=== PATIENT | male | born 1965 | race Hispanic/Latino ===

== ENCOUNTER → 2017-01-26 | Outpatient (CLI) | payer OTHER ==
[~2017-01-26] MED LIST: ASP325TEC PO; ASP81CT PO; ATR20T PO; CLOP75TA PO; CLPD75T PO; FAMO40TA6 PO; HYDR1TAB PO; LISI10TA2 PO; MECL-124 PO; MTP25TSR PO; MULTIVITAMIN; OMEG1CAP58 PO; ONDA4TAB8 PO; PANT40TA2 PO; PNT40TEC PO; VIT B12
--- OUTSIDE RECORDS SUMMARY | 2017-01-26 08:11 | XMS REPORT | Continuity of Care Document ---
Author Author [facility] Organization [facility] Address Unknown Phone Unavailable Care Team Providers Care Concrete Rubber Name Role Phone DIANA SALVADOR DO PCP Insurance Providers Payer Name Policy Number Subscriber Name Relationship [facility] [id number] Bettye Simpson 20 Self / Same As Patient Advance Directives Directive Response Recorded Date/Time Advance Directives No 03/30/15 10:31am Health Care Power of Coin Machine Collector No 03/30/15 10:31am Organ Donor No 03/30/15 10:31am Resuscitation Status Full Code 03/30/15 10:31am Problems Medical Problems Problem Onset Date Status Vertigo Unknown Active Medications Medication Dose Route Sig Days/Qty Instructions Order Date Discontinued Date Status [Vit.b-12] 07/27/08 07/13/12 Discontinued [Centrum Vit.otc] 07/27/08 07/13/12 Discontinued Metoprolol Succinate (Metoprolol ER 25mg) 25 Mg PO BEDTIME 02/23/12 Active Clopidogrel Bisulfate 1 Each PO DAILY 02/23/12 04/07/14 Discontinued Atorvastatin Calcium 20 Mg PO BEDTIME 02/23/12 Active Aspirin 81 Mg PO DAILY 02/23/12 04/25/14 Discontinued Acetaminophen/Hydrocodone Bitart 1 - 2 Each PO Q4-6HR prn 07/15/12 04/07/14 Discontinued Clopidogrel Bisulfate 75 Mg PO DAILY 90 Qty 04/08/14 Active Pantoprazole Sodium 40 Mg PO DAILY 30 Qty 04/25/14 03/30/15 Discontinued Aspirin 325 Mg PO DAILY 30 Qty take this dose for 30 days then convert over to 81 mg dose 04/25/14 03/30/15 Discontinued Aspirin 81 Mg PO DAILY 03/30/15 Active Lisinopril 10 Mg PO DAILY 03/30/15 Active Meclizine HCl 1 Tab PO FOUR TIMES DAILY 30 Qty 03/30/15 Active Social History Social History Problem Response Recorded Date/Time Alcohol Use Occasionally Uses 03/30/2015 10:31am Recreational Drug Use No 03/30/2015 10:31am Recent Foreign Travel No 04/23/2014 8:40pm Recent Infectious Disease Exposure No 04/23/2014 8:40pm Smoking Status Never a Smoker 03/30/2015 10:31am Query Response Start Date Stop Date Smoking Status Never a Smoker Hospital Discharge Instructions No hospital discharge instructions. Plan of Care No plan of care. Functional Status Query Response Date Recorded Patient Orientation Person Place Time Situation March 30, 2015 10:50am Comprehension Ability Understands Concepts March 30, 2015 10:50am Allergies, Adverse Reactions, Alerts Allergen Type Severity Reaction Status Last Updated No Known Drug Allergies Active 07/27/08 Immunizations Name Given Type Date of Pneumonia Vaccine 02/20/12 Historical Date of Influenza Vaccine 02/13/12 Historical Vital Signs Acute Vital Signs Vital Response Date/Time Temperature (Fahrenheit) 98.6 degrees F (97.6 - 99.5) Temperature (Calculated Celsius) 37.27613 degrees C (36.4 - 37.5) Pulse Rate (adult) 75 bpm (60 - 90) Respiratory Rate 16 bpm (12 - 24) O2 Sat by Pulse Oximetry 96 % (88 - 100) Blood Pressure 137/92 mm Hg Pain Pain Intensity 0 Height (Feet) 5 feet Height (Inches) 8 inches Height (Calculated Centimeters) 172.071756 cm Weight (Pounds) 175 pounds Weight (Calculated Kilograms) 79.567662 kilograms Calculated BMI 26.61 Results Laboratory Results Test Name Result Units Flags Reference Collection Date/Time Result Date/ Time Comments White Blood Count 6.5 10^3/uL 4.3-11.0 03/14/2015 2:05pm 03/14/2015 2: 15pm Red Blood Count 5.22 10^6/uL 4.35-5.85 03/14/2015 2:05pm 03/14/2015 2: 15pm Hemoglobin 15.7 G/DL 13.3-17.7 03/14/2015 2:05pm 03/14/2015 2:15pm Hematocrit 44 % 40-54 03/14/2015 2:05pm 03/14/2015 2:15pm Mean Corpuscular Volume 85 FL 80-99 03/14/2015 2:05pm 03/14/2015 2: 15pm Mean Corpuscular Hemoglobin 30 PG 25-34 03/14/2015 2:05pm 03/14/2015 2: 15pm Mean Corpuscular Hemoglobin Concent 35 G/DL 32-36 03/14/2015 2:05pm 2:15pm Red Cell Distribution Width 13.2 % 10.0-14.5 03/14/2015 2:05pm 2014 2:15pm Platelet Count 265 10^3/uL 130-400 03/14/2015 2:05pm 03/14/2015 2:15pm Mean Platelet Volume 9.9 FL 7.4-10.4 03/14/2015 2:05pm 03/14/2015 2: 15pm Neutrophils (%) (Auto) 47 % 42-75 03/14/2015 2:pm 03/14/2015 2:15pm Lymphocytes (%) (Auto) 36 % 12-44 03/14/2015 2:05pm 03/14/2015 2:15pm Monocytes (%) (Auto) 14 % H 0-12 03/14/2015 2:05pm 03/14/2015 2:15pm Eosinophils (%) (Auto) 3 % 0-10 03/14/2015 2:pm 03/14/2015 2:15pm Basophils (%) (Auto) 1 % 0-10 03/14/2015 2:05pm 03/14/2015 2:15pm Neutrophils # (Auto) 3.0 X 10^3 1.8-7.8 03/14/2015 2:05pm 03/14/2015 2: 15pm Lymphocytes # (Auto) 2.3 X 10^3 1.0-4.0 03/14/2015 2:05pm 03/14/2015 2: 15pm Monocytes # (Auto) 0.9 X 10^3 0.0-1.0 03/14/2015 2:05pm 03/14/2015 2: 15pm Eosinophils # (Auto) 0.2 10^3/uL 0.0-0.3 03/14/2015 2:05pm 03/14/2015 2 :15pm Basophils # (Auto) 0.1 10^3/uL 0.0-0.1 03/14/2015 2:05pm 03/14/2015 2: 15pm Sodium Level 140 MMOL/L 135-145 03/14/2015 2:03/14/2015 2:30pm Potassium Level 4.2 MMOL/L 3.6-5.0 03/14/2015 2:pm 03/14/2015 2:30pm Chloride Level 104 MMOL/L 98-107 03/14/2015 2:pm 03/14/2015 2:30pm Carbon Dioxide Level 26 MMOL/L 21-32 03/14/2015 2:03/14/2015 2: 30pm Blood Urea Nitrogen 17 MG/DL 7-18 03/14/2015 2:03/14/2015 2:30pm Creatinine 0.83 MG/DL 0.60-1.30 03/14/2015 2:03/14/2015 2:30pm BUN/Creatinine Ratio 20 03/14/2015 2:pm 03/14/2015 2:30pm Estimat Glomerular Filtration Rate > 60 03/14/2015 2:2014 2:30pm GFR INTERPRETIVE DATA UNITS FOR ESTIMATED GFR (eGFR): mL/min/1.73 M2 REFERENCE RANGE FOR ESTIMATED GFR (eGFR) eGFR NORMAL eGFR >60 MODERATELY DECREASED eGFR 30-59 SEVERLY DECREASED eGFR 15-29 KIDNEY FAILURE <15 (OR DIALYSIS) Glucose Level 94 MG/DL 70-105 03/14/2015 2:03/14/2015 2:30pm Calcium Level 9.9 MG/DL 8.5-10.1 03/14/2015 2:03/14/2015 2:30pm Thyroid Stimulating Hormone (TSH) 0.94 UIU/ML 0.35-4.94 03/14/2015 2: 03/14/2015 2:51pm Free Thyroxine 0.94 NG/DL 0.70-1.48 03/14/2015 2:05pm 03/14/2015 2: 51pm Hemoglobin A1c 5.8 % 4.5-6.2 03/14/2015 2:05pm 03/14/2015 2:48pm White Blood Count 6.9 10^3/uL 4.3-11.0 03/30/2015 10:35am 03/30/2015 11 :18am Red Blood Count 5.37 10^6/uL 4.35-5.85 03/30/2015 10:35am 03/30/2015 11 :18am Hemoglobin 16.0 G/DL 13.3-17.7 03/30/2015 10:35am 03/30/2015 11:18am Hematocrit 46 % 40-54 03/30/2015 10:35am 03/30/2015 11:18am Mean Corpuscular Volume 85 FL 80-99 03/30/2015 10:35am 03/30/2015 11: 18am Mean Corpuscular Hemoglobin 30 PG 25-34 03/30/2015 10:35am 03/30/2015 11:18am Mean Corpuscular Hemoglobin Concent 35 G/DL 32-36 03/30/2015 10:35am 11:18am Red Cell Distribution Width 13.2 % 10.0-14.5 03/30/2015 10:35am 2014 11:18am Platelet Count 254 10^3/uL 130-400 03/30/2015 10:35am 03/30/2015 11: 18am Mean Platelet Volume 10.0 FL 7.4-10.4 03/30/2015 10:35am 03/30/2015 11: 18am Neutrophils (%) (Auto) 60 % 42-75 03/30/2015 10:35am 03/30/2015 11: 18am Lymphocytes (%) (Auto) 27 % 12-44 03/30/2015 10:35am 03/30/2015 11: 18am Monocytes (%) (Auto) 10 % 0-12 03/30/2015 10:35am 03/30/2015 11:18am Eosinophils (%) (Auto) 2 % 0-10 03/30/2015 10:35am 03/30/2015 11:18am Basophils (%) (Auto) 0 % 0-10 03/30/2015 10:35am 03/30/2015 11:18am Neutrophils # (Auto) 4.1 X 10^3 1.8-7.8 03/30/2015 10:35am 03/30/2015 11:18am Lymphocytes # (Auto) 1.9 X 10^3 1.0-4.0 03/30/2015 10:35am 03/30/2015 11:18am Monocytes # (Auto) 0.7 X 10^3 0.0-1.0 03/30/2015 10:35am 03/30/2015 11: 18am Eosinophils # (Auto) 0.2 10^3/uL 0.0-0.3 03/30/2015 10:35am 03/30/2015 11:18am Basophils # (Auto) 0.0 10^3/uL 0.0-0.1 03/30/2015 10:35am 03/30/2015 11 :18am Urine Color YELLOW 03/30/2015 11:38am 03/30/2015 12:14pm Urine Clarity CLEAR 03/30/2015 11:3803/30/2015 12:14pm Urine pH 8 5-9 03/30/2015 11:3803/30/2015 12:14pm Urine Specific [place] 1.010 * 1.016-1.022 03/30/2015 11:38am 2014 12:14pm Urine Protein NEGATIVE NEGATIVE 03/30/2015 11:38am 03/30/2015 12: 14pm Urine Glucose (UA) NEGATIVE NEGATIVE 03/30/2015 11:38am 03/30/2015 12 :14pm Urine RBC (Auto) NEGATIVE NEGATIVE 03/30/2015 11:38am 03/30/2015 12: 14pm Urine Ketones NEGATIVE NEGATIVE 03/30/2015 11:38am 03/30/2015 12: 14pm Urine Nitrite NEGATIVE NEGATIVE 03/30/2015 11:38am 03/30/2015 12: 14pm Urine Bilirubin NEGATIVE NEGATIVE 03/30/2015 11:38am 03/30/2015 12: 14pm Urine Urobilinogen NORMAL MG/DL NORMAL 03/30/2015 11:38am 03/30/2015 12 :14pm Urine Leukocyte Esterase NEGATIVE NEGATIVE 03/30/2015 11:38am 2014 12:14pm Urine RBC NONE /HPF 03/30/2015 11:38am 03/30/2015 12:14pm Urine WBC NONE /HPF 03/30/2015 11:38am 03/30/2015 12:14pm Urine Bacteria TRACE /HPF 03/30/2015 11:38am 03/30/2015 12:14pm Urine Squamous Epithelial Cells NONE /HPF 03/30/2015 11:38am 2014 12:14pm Urine Crystals NONE /LPF 03/30/2015 11:38am 03/30/2015 12:14pm Urine Amorphous Sediment RARE LILIBETH PHOSPHATE /LPF * 03/30/2015 11:38am 03/30/2015 12:14pm Urine Casts NONE /LPF 03/30/2015 11:38am 03/30/2015 12:14pm Urine Mucus NEGATIVE /LPF 03/30/2015 11:38am 03/30/2015 12:14pm Urine Culture Indicated NO 03/30/2015 11:38am 03/30/2015 12:14pm Sodium Level 138 MMOL/L 135-145 03/30/2015 10:35am 03/30/2015 11:37am Potassium Level 4.2 MMOL/L 3.6-5.0 03/30/2015 10:35am 03/30/2015 11: 37am Chloride Level 105 MMOL/L 98-107 03/30/2015 10:35am 03/30/2015 11:37am Carbon Dioxide Level 25 MMOL/L 21-32 03/30/2015 10:35am 03/30/2015 11: 37am Blood Urea Nitrogen 14 MG/DL 7-18 03/30/2015 10:35am 03/30/2015 11: 37am Creatinine 0.85 MG/DL 0.60-1.30 03/30/2015 10:35am 03/30/2015 11:37am BUN/Creatinine Ratio 16 03/30/2015 10:35am 03/30/2015 11:37am Estimat Glomerular Filtration Rate > 60 03/30/2015 10:35am 2014 11:37am GFR INTERPRETIVE DATA UNITS FOR ESTIMATED GFR (eGFR): mL/min/1.73 M2 REFERENCE RANGE FOR ESTIMATED GFR (eGFR) eGFR NORMAL eGFR >60 MODERATELY DECREASED eGFR 30-59 SEVERLY DECREASED eGFR 15-29 KIDNEY FAILURE <15 (OR DIALYSIS) Glucose Level 108 MG/DL H 70-105 03/30/2015 10:35am 03/30/2015 11:37am Calcium Level 9.7 MG/DL 8.5-10.1 03/30/2015 10:35am 03/30/2015 11:37am Total Bilirubin 0.5 MG/DL 0.1-1.0 03/30/2015 10:35am 03/30/2015 11: 37am Alkaline Phosphatase 95 U/L 40-136 03/30/2015 10:35am 03/30/2015 11: 37am Aspartate Amino Transf (AST/SGOT) 21 U/L 5-34 03/30/2015 10:35am 2014 11:37am Alanine Aminotransferase (ALT/SGPT) 29 U/L 0-55 03/30/2015 10:35am 11/2014 11:37am Total Protein 7.6 G/DL 6.4-8.2 03/30/2015 10:35am 03/30/2015 11:37am Albumin 4.5 G/DL 3.2-4.5 03/30/2015 10:35am 03/30/2015 11:37am Procedures Procedure Status Date Provider(s) Tracing only of electrocardiogram completed 03/30/15 SERGIO HINTON MD Encounters Encounter Location Date/Time Departed Emergency Room Via [facility] 03/30/15 9:47am Registered Clinic [facility] 03/14/15 1:55pm Recent Diagnosis
[2017-01-26 08:29] LABS: BASOPHILS # (AUTO) 0.1 10^3/uL (0.0-0.1); BASOPHILS % (AUTO) 1 % (0-10); EOSINOPHILS # (AUTO) 0.2 10^3/uL (0.0-0.3); EOSINOPHILS % (AUTO) 3 % (0-10); LYMPHOCYTES # (AUTO) 2.3 X 10^3 (1.0-4.0); LYMPHOCYTES % (AUTO) 37 % (12-44); MEAN CORPUSCULAR HEMOGLOBIN 30 PG (25-34); MEAN CORPUSCULAR HGB CONC 35 G/DL (32-36); MEAN CORPUSCULAR VOLUME 87 FL (80-99); MEAN PLATELET VOLUME 10.2 FL (7.4-10.4); MONOCYTES # (AUTO) 0.6 X 10^3 (0.0-1.0); MONOCYTES % (AUTO) 10 % (0-12); NEUTROPHILS # (AUTO) 3.1 X 10^3 (1.8-7.8); NEUTROPHILS % (AUTO) 50 % (42-75); PLATELET COUNT 269 10^3/uL (130-400); RED BLOOD COUNT 5.05 10^6/uL (4.35-5.85); RED CELL DISTRIBUTION WIDTH 13.4 % (10.0-14.5); WHITE BLOOD COUNT 6.2 10^3/uL (4.3-11.0)
[2017-01-26 08:42] LABS: ALANINE AMINOTRANSFERASE 24 U/L (0-55); ALBUMIN 4.2 G/DL (3.2-4.5); ANION GAP 10 MMOL/L (5-14); ASPARTATE AMINO TRANSFERASE 17 U/L (5-34); BILIRUBIN,TOTAL 0.6 MG/DL (0.1-1.0); BLOOD UREA NITROGEN 17 MG/DL (7-18); BUN/CREATININE RATIO 20; CARBON DIOXIDE 20 MMOL/L (21-32); CHLORIDE 108 MMOL/L (98-107); CHOLESTEROL 158 MG/DL (< 200); CREATININE SERUM 0.87 MG/DL (0.60-1.30); DIRECT LDL 90 MG/DL (1-129); GFR ESTIMATED > 60; GLUCOSE 103 MG/DL (70-105); POTASSIUM 4.3 MMOL/L (3.6-5.0); SODIUM 138 MMOL/L (135-145); TOTAL PROTEIN 6.9 G/DL (6.4-8.2); TRIGLYCERIDES 106 MG/DL (<150); VLDL CHOLESTEROL 21 MG/DL (5-40)
== END ==
LOC: LAB 08:06
PROVIDERS: ATTEND Family Medicine
DX: E78.2 Mixed hyperlipidemia (principal); I10 Essential (primary) hypertension; I25.10 Atherosclerotic heart disease of native coronary artery without angina pectoris
CPT/HCPCS: 36415; 80053; 80061; 85025

== ENCOUNTER → 2017-02-02 | Outpatient (CLI) | payer OTHER ==
--- OUTSIDE RECORDS SUMMARY | 2017-02-02 14:49 | XMS REPORT | Continuity of Care Document ---
Author Author [facility] Organization [facility] Address Unknown Phone Unavailable Care Team Providers Care Hop Grower Name Role Phone DIANA SALVADOR DO PCP Insurance Providers Payer Name Policy Number Subscriber Name Relationship [facility] [id number] Bettye Simpson 20 Self / Same As Patient Advance Directives Directive Response Recorded Date/Time Advance Directives No 03/30/15 10:31am Health Care Power of Seo Coordinator No 03/30/15 10:31am Organ Donor No 03/30/15 [...] F (97.6 - 99.5) Temperature (Calculated Celsius) 37.59328 degrees C (36.4 - 37.5) Pulse Rate (adult) 75 bpm (60 - 90) Respiratory Rate 16 bpm (12 - 24) O2 Sat by Pulse Oximetry 96 % (88 - 100) Blood Pressure 137/92 mm Hg Pain Pain Intensity 0 Height (Feet) 5 feet Height (Inches) 8 inches Height (Calculated Centimeters) 172.689971 cm Weight (Pounds) 175 pounds Weight (Calculated Kilograms) 79.562780 kilograms Calculated BMI 26.61 Results Laboratory Results [...] 8 5-9 03/30/2015 11:3803/30/2015 12:14pm Urine Specific [place] 1.010 * 1.016-1.022 03/30/2015 11:38am 2014 12:14pm [...] Encounter Location Date/Time Departed Emergency Room [facility] 03/30/15 9:47am Registered Clinic [facility] 03/14/15 1:55pm Recent Diagnosis
--- NOTE | 2017-02-05 08:32 | ECHOCARDIOGRAPHY REPORT ---
PROCEDURE PHYSICIAN: NYA GUIDO DATE OF PROCEDURE: 02/02/2017 TWO DIMENSIONAL ECHOCARDIOGRAM REPORT PRIMARY PHYSICIAN: Dr. Mendez OTHER PHYSICIAN: REFERRING PHYSICIAN: ORDERING PHYSICIAN: Dr. Guido INDICATION FOR THE PROCEDURE: 1. Coronary artery disease. 2. Hyperlipidemia. 3. Old inferior wall myocardial infarction. MEASUREMENTS DERIVED VALUES LV DIAMETER (LAX) NORMALS NORMALS Diastolic 5.4 (3.6-5.2) Eject. Fract. (60%+/-6%) Systolic (2.3-3.9) Diastolic Vol. % Shortening (0.22-0.42) Systolic Vol. Aortic Root 3.2 IVS THICKNESS Diastolic 1.2 (0.6-1.1) LVPW THICKNESS Diastolic 1.1 (0.6-1.1) LA DIAMETER Systolic 3.3 (2.1-3.7) DESCRIPTION: Two-dimensional echocardiography shows well preserved global left ventricular systolic function without distinct regional wall motion abnormality. Aortic, mitral and tricuspid valve leaflets show good leaflet excursion. There is no significant pericardial effusion. Doppler imaging shows trivial tricuspid and pulmonic regurgitation. There is no Doppler evidence of any significant valvular stenosis. There is mild aortic valve sclerosis without any evidence of significant valvular stenosis. Trivial mitral regurgitation is seen. Mitral inflow is suggestive of mild diastolic dysfunction of the left ventricle (grade I). Trivial aortic regurgitation is seen. There is no Doppler evidence of any intracardiac shunt. Inferior vena cava is of normal size and does exhibit inspiratory collapse. Pulmonary artery systolic pressure is estimated to be approximately 30 to 35 mmHg. IN CONCLUSION: 1. Normal global left ventricular systolic function with an ejection fraction of approximately 60%. 2. Trivial mitral, tricuspid, aortic and pulmonic regurgitation. 3. Moderate aortic valve sclerosis. 4. No evidence of significant valvular stenosis. 5. Mild diastolic dysfunction of the left ventricle. 6. Pulmonary artery systolic pressure is estimated approximately 30 to 35 mmHg. Job ID: [id number] Dictated Date: 02/04/2017 17:43:22 Calender Supervisor Date: 02/05/2017 08:27:20 / natalee
== END ==
LOC: CARD 14:45
PROVIDERS: ATTEND Internal Medicine Cardiovascular Disease
DX: I25.10 Atherosclerotic heart disease of native coronary artery without angina pectoris (principal); E87.4 Mixed disorder of acid-base balance; I25.2 Old myocardial infarction
CPT/HCPCS: 93306

== ENCOUNTER 2017-04-16 14:08 | Emergency (ER) | payer OTHER ==
[~2017-04-16] VITALS: Ht 172.7 cm; Wt 90.7 kg
[2017-04-16] MEDS ORDERED: NS IV 1000 ML 1,000 ML IV ONE (14:56)
--- NOTE | 2017-04-16 15:30 | Diagnostic Imaging Report ---
INDICATION: Left flank pain. KUB. Bowel gas pattern is normal. No pathologic masses or calcifications. There is slight curvature of the lumbar spine convex to the right. IMPRESSION: No acute abnormalities in the abdomen. There are postsurgical changes from left inguinal hernia repair. Dictated by: Dictated on workstation # [id number]
--- NOTE | 2017-04-16 15:41 | Diagnostic Imaging Report ---
PROCEDURE: CT urinary tract, rule out kidney stone. TECHNIQUE: Multiple contiguous axial images were obtained through the abdomen and pelvis without the use of intravenous contrast. INDICATION: Back pain. FINDINGS: The lung bases appear clear. There is suggestion of coronary artery stents in the right coronary artery distribution. The liver, the spleen, the adrenal glands, and the pancreas appear unremarkable for an unenhanced exam. There is a 2 mm nonobstructive stone in the mid right kidney. A 3 mm nonobstructive stone in the mid left kidney is also seen. There is suggestion of a 2.6 cm cystic lesion in the left kidney with layering hyperdensity probably related to hemorrhagic component. Another likely hemorrhagic cyst in the medial aspect of the upper pole of the left kidney is also seen. There is no hydronephrosis. No ureteric stones are seen. No bladder stones. There is no significant free fluid or fluid collection in the abdomen or pelvis. The appendix is small and appears normal. No bowel obstruction. Tiny fat-containing umbilical hernia seen. The osseous structures demonstrate degenerative changes at L5-S1 and degenerative changes at the SI joints. There are sclerotic foci seen in the left acetabulum, probably related to bony islands. These were seen on 2008 exam. IMPRESSION: 1. Nonobstructive kidney stones up to 3 mm in the mid left kidney and up to 2 mm in the mid right kidney. No obstructive stone. No hydronephrosis. 2. Tiny fat-containing umbilical hernia. Dictated by: Dictated on workstation # [id number]
--- NOTE | 2017-04-16 15:46 | ED General ---
General Chief Complaint: General Problems/Pain Stated Complaint: NAUSEA,WEAKNESS,HEAD PAIN Nursing Triage Note: TO ER WITH COMPLAINTS OF HEADACHE, NAUSEA, RIGHT LOWER BACK PAIN SINCE THIS MORNING. PATIENT REPORTS HISTORY OF KIDNEY STONE Nursing Sepsis Screen: No Definite Risk History of Present Illness Time Seen by Provider: 14:50 Initial Comments Evaluation for left flank pain. History of kidney stones. Timing/Duration: 4-6 Hours, Intermittent Severity: Mild Modifying Factors: improves with Rest Associated Systoms: Denies Symptoms, No Chest Pain, No Cough, No Diaphoresis, No Fever/Chills, Headaches, No Loss of Appetite, No Malaise, Nausea/Vomiting ( better at the present time), No Rash, No Seizure, No Shortness of Air, No Syncope, No Weakness Allergies and Home Medications Allergies Coded Allergies: No Known Drug Allergies (Verified , 07/27/08) Home Medications Aspirin 81 Mg Chew, 81 MG PO DAILY, (Reported) Atorvastatin 20 Mg Tablet, 20 MG PO HS, (Reported) Clopidogrel Bisulfate 75 Mg Tab, 75 MG PO DAILY, #90 Prescribed by: LIU COHEN on 04/08/14 1301 Famotidine 40 Mg Tablet, 40 MG PO DAILY, (Reported) Hydrocodone/Acetaminophen 1 Each Tablet, 1 EACH PO Q4H PRN for PAIN, #15 Ref 0 Prescribed by: KENY KEATING on 04/16/17 1625 Lisinopril 10 Mg Tablet, 10 MG PO DAILY, (Reported) Metoprolol Succinate 25 Mg Tab, 25 MG PO HS, (Reported) [place]-3 Fatty Acids/Fish Oil 1 Each Capsule, 1,000 MG PO DAILY, (Reported) Constitutional: no symptoms reported, see HPI EENTM: no symptoms reported, see HPI Respiratory: no symptoms reported, see HPI Cardiovascular: no symptoms reported, see HPI Gastrointestinal: no symptoms reported, see HPI Genitourinary: see HPI, pain (left flank) Musculoskeletal: no symptoms reported, see HPI Skin: no symptoms reported, see HPI Psychiatric/Neurological: No Symptoms Reported, See HPI Hematologic/Lymphatic: No Symptoms Reported, See HPI Immunological/Allergic: no symptoms reported, see HPI All Other Systems Reviewed Negative Unless Noted: Yes Past Bldpotr-Kstfua-Pxvdio Hx Patient Social History Alcohol Use: Denies Use Recreational Drug Use: No Smoking Status: Never a Smoker 2nd Hand Smoke Exposure: No Recent Foreign Travel: No Contact w/Someone Who Travel: No Recent Infectious Disease Expo: No Recent Hopitalizations: No Immunizations Up To Date Tetanus Booster (TDap): Unknown Date of Pneumonia Vaccine: Sep 05, 2014 Date of Influenza Vaccine: Sep 05, 2015 Surgeries HX Surgeries: Yes (KIDNEY STONE REMOVAL, CARDIAC CATH/STENT, ING HERNIA) Surgeries: Cardiac, Coronary Stent, Renal Respiratory Hx Respiratory Disorders: No Cardiovascular Hx Cardiac Disorders: Yes (STENTS, HEART ATTACK X2) Cardiac Disorders: Coronary Artery Disease, Heart Attack, High Cholesterol, Hypertension Neurological Hx Neurological Disorders: No Reproductive System Hx Reproductive Disorders: No Genitourinary Hx Genitourinary Disorders: Yes (HX OF STONES) Genitourinary Disorders: Kidney Stones Gastrointestinal Hx Gastrointestinal Disorders: No Musculoskeletal Hx Musculoskeletal Disorders: No Endocrine Hx Endocrine Disorders: No HEENT HX ENT Disorders: No Cancer Hx Cancer: No Psychosocial Hx Psychiatric Problems: No Integumentary HX Skin/Integumentary Disorder: No Blood Transfusions Hx Blood Disorders: No Reviewed Nursing Assessment Reviewed/Agree w Nursing PMH: Yes Family Medical History Family Medial History: Family history: Cardiovascular disease 19 FATHER, Onset:Unknown Physical Exam Vital Signs Vital Sign - Last 12Hours 04/16/17 14:41 Temp 98.1 Pulse 79 Resp 18 B/P (MAP) 142/94 Pulse Ox 98 O2 Delivery Room Air Capillary Refill : Less Than 3 Seconds General Appearance: No Apparent Distress, WD/WN Eyes: Bilateral Eye EOMI, Bilateral Eye Normal Inspection, Bilateral Eye PERRL HEENT: PERRL/EOMI, TMs Normal, Normal ENT Inspection, Pharynx Normal Neck: Full Range of Motion, Normal Inspection, Non Tender, Supple Respiratory: Chest Non Tender, Lungs Clear, Normal Breath Sounds Cardiovascular: Regular Rate, Rhythm, No Edema, No Murmur, Normal Peripheral Pulses Gastrointestinal: Normal Bowel Sounds, No Organomegaly, No Pulsatile Mass, Non Tender, Soft, No Distended, No Guarding, No Hepatomegaly, No Rebound, No Splenomegaly Back: Normal Inspection, No CVA Tenderness, No Vertebral Tenderness Extremity: Normal Capillary Refill, Normal Inspection, Normal Range of Motion, Non Tender, No Calf Tenderness Neurologic/Psychiatric: Alert, Oriented x3, No Motor/Sensory Deficits, Normal Mood/Affect Skin: Normal Color, Warm/Dry Lymphatic: No Adenopathy Progress/Results/Core Measures Results/Orders Lab Results Laboratory Tests Test 04/16/17 15:34 Range/Units White Blood Count 6.7 4.3-11.0 10^3/uL Red Blood Count 4.76 4.35-5.85 10^6/uL Hemoglobin 14.2 13.3-17.7 G/DL Hematocrit 42 40-54 % Mean Corpuscular Volume 87 80-99 FL Mean Corpuscular Hemoglobin 30 25-34 PG Mean Corpuscular Hemoglobin Concent 34 32-36 G/DL Red Cell Distribution Width 13.3 10.0-14.5 % Platelet Count 261 130-400 10^3/uL Mean Platelet Volume 10.3 7.4-10.4 FL Neutrophils (%) (Auto) 65 42-75 % Lymphocytes (%) (Auto) 23 12-44 % Monocytes (%) (Auto) 10 0-12 % Eosinophils (%) (Auto) 1 0-10 % Basophils (%) (Auto) 1 0-10 % Neutrophils # (Auto) 4.3 1.8-7.8 X 10^3 Lymphocytes # (Auto) 1.5 1.0-4.0 X 10^3 Monocytes # (Auto) 0.7 0.0-1.0 X 10^3 Eosinophils # (Auto) 0.1 0.0-0.3 10^3/uL Basophils # (Auto) 0.0 0.0-0.1 10^3/uL Urine Color YELLOW Urine Clarity CLEAR Urine pH 7 5-9 Urine Specific [place] 1.010 L 1.016-1.022 Urine Protein NEGATIVE NEGATIVE Urine Glucose (UA) NEGATIVE NEGATIVE Urine Ketones NEGATIVE NEGATIVE Urine Nitrite NEGATIVE NEGATIVE Urine Bilirubin NEGATIVE NEGATIVE Urine Urobilinogen NORMAL NORMAL MG/DL Urine Leukocyte Esterase NEGATIVE NEGATIVE Urine RBC (Auto) NEGATIVE NEGATIVE Urine RBC NONE /HPF Urine WBC NONE /HPF Urine Crystals PRESENT H /LPF Urine Amorphous Sediment FEW LILIBETH URATES H /LPF Urine Bacteria NONE /HPF Urine Casts NONE /LPF Urine Mucus NEGATIVE /LPF Urine Culture Indicated NO Sodium Level 139 135-145 MMOL/L Potassium Level 3.6 3.6-5.0 MMOL/L Chloride Level 107 98-107 MMOL/L Carbon Dioxide Level 25 21-32 MMOL/L Anion Gap 7 5-14 MMOL/L Blood Urea Nitrogen 15 7-18 MG/DL Creatinine 0.91 0.60-1.30 MG/DL Estimat Glomerular Filtration Rate > 60 BUN/Creatinine Ratio 16 Glucose Level 125 H 70-105 MG/DL Calcium Level 9.4 8.5-10.1 MG/DL Total Bilirubin 0.3 0.1-1.0 MG/DL Aspartate Amino Transf (AST/SGOT) 16 5-34 U/L Alanine Aminotransferase (ALT/SGPT) 20 0-55 U/L Alkaline Phosphatase 71 40-136 U/L Total Protein 7.0 6.4-8.2 G/DL Albumin 4.3 3.2-4.5 G/DL My Orders Orders - ZURIKENY Cbc With Automated Diff (04/16/17 14:56) Comprehensive Metabolic Panel (04/16/17 14:56) Ua Culture If Indicated (04/16/17 14:56) Saline Lock/Iv-Start (04/16/17 14:56) Ns Iv 1000 Ml (Sodium Chloride 0.9%) (04/16/17 14:56) Ct Abd/Pelvis Wo(Kidney Stone) (04/16/17 14:59) Abdomen/Kub 1view (04/16/17 14:59) Morphine Injection (Morphine Injection (04/16/17 16:18) Medications Given in ED Current Medications Medications Dose Ordered Sig/Ramírez Route Start Time Stop Time Status Last Admin Dose Admin Sodium Chloride 1,000 ml @ 0 mls/hr Q0M ONCE IV 04/16/17 14:56 04/16/17 14:58 DC 04/16/17 15:34 1,000 MLS/HR Vital Signs/I&O Vital Sign - Last 12Hours 04/16/17 04/16/17 14:41 16:58 Temp 98.1 98.2 Pulse 79 77 Resp 18 20 B/P (MAP) 142/94 Pulse Ox 98 99 O2 Delivery Room Air Blood Pressure Mean: 110 Progress Note : Time: 14:50 Progress Note Initial evaluation completed, recommended KUB and CT abdomen and pelvis for kidney stones. Will obtain lab work. 1545 CBC, UA and CMP within normal limits; glucose 125. 1600 discussed lab results and CT/x-ray with patient and his . Morphine 5 mg IV for pain 1615 patient reports improvement in pain, discharge instructions reviewed with him. All questions answered. Diagnostic Imaging Diagonstic Imaging: Xray Plain Films/CT/US/NM/MRI: abdomen Comments NAME: BETTYE FRANKEL MED REC#: [id number] PT STATUS: REG ER : 1965 PHYSICIAN: KENY KEATING ADMIT DATE: 04/16/17/ER Draft Date of Exam:04/16/17 ABDOMEN/KUB 1VIEW INDICATION: Left flank pain. KUB. Bowel gas pattern is normal. No pathologic masses or calcifications. There is slight curvature of the lumbar spine convex to the right. IMPRESSION: No acute abnormalities in the abdomen. There are postsurgical changes from left inguinal hernia repair. Dictated on workstation # [id number] Dict: 04/16/17 1527 Trans: 04/16/17 1529 ASHLY [id number] Interpreted by: OTTONIEL MANLEY Electronically signed by: Reviewed: Reviewed by Me Diagonstic Imaging: CT Plain Films/CT/US/NM/MRI: abdomen Comments NAME: BETTYE FRANKEL [facility] REC#: [id number] PT STATUS: REG ER : 1965 PHYSICIAN: KENY KEATING ADMIT DATE: 04/16/17/ER Draft Date of Exam:04/16/17 CT ABD/PELVIS WO(KIDNEY STONE) PROCEDURE: CT urinary tract, rule out kidney stone. TECHNIQUE: Multiple contiguous axial images were obtained through the abdomen and pelvis without the use of intravenous contrast. INDICATION: Back pain. FINDINGS: The lung bases appear clear. There is suggestion of coronary artery stents in the right coronary artery distribution. The liver, the spleen, the adrenal glands, and the pancreas appear unremarkable for an unenhanced exam. There is a 2 mm nonobstructive stone in the mid right kidney. A 3 mm nonobstructive stone in the mid left kidney is also seen. There is suggestion of a 2.6 cm cystic lesion in the left kidney with layering hyperdensity probably related to hemorrhagic component. Another likely hemorrhagic cyst in the medial aspect of the upper pole of the left kidney is also seen. There is no hydronephrosis. No ureteric stones are seen. No bladder stones. There is no significant free fluid or fluid collection in the abdomen or pelvis. The appendix is small and appears normal. No bowel obstruction. Tiny fat-containing umbilical hernia seen. The osseous structures demonstrate degenerative changes at L5-S1 and degenerative changes at the SI joints. There are sclerotic foci seen in the left acetabulum, probably related to bony islands. These were seen on 2007 exam. IMPRESSION: 1. Nonobstructive kidney stones up to 3 mm in the mid left kidney and up to 2 mm in the mid right kidney. No obstructive stone. No hydronephrosis. 2. Tiny fat-containing umbilical hernia. Dictated on workstation # [id number] Reviewed: Reviewed by Me Departure Impression Impression: Primary Impression: Urolithiasis Qualified Codes: N20.0 - Calculus of kidney Disposition: HOME, SELF-CARE Condition: Improved Departure-Patient Inst. Decision time for Depature: 16:00 Referrals: DIANA MENDEZ DO (PCP/Family) Primary Care Physician Patient Instructions: Kidney Stones (DC), Kidney Stones in Adults Add. Discharge Instructions: Increase water intake, urinate frequently. Follow up with Dr. Mendez early next week. Consider evaluation by Dr. Fox [phone], call for appt. Return to emergency room for increased back or abdominal pain, inability to urinate, fevers, blood in urine or new problems. All discharge instructions reviewed with patient and/or family. Voiced understanding. Scripts Hydrocodone/Acetaminophen (Hydrocodon -Acetaminophen 5-325) 1 Each Tablet 1 EACH PO Q4H Y for PAIN, #15 TAB 0 Refills Prov: KENY KEATING 04/16/17 Copy Copies To 1: DIANA MENDEZ AMY ARNP April 16, 2017 15:46
[2017-04-16 15:53] LABS: BASOPHILS % (AUTO) 1 % (0-10); EOSINOPHILS # (AUTO) 0.1 10^3/uL (0.0-0.3); EOSINOPHILS % (AUTO) 1 % (0-10); LYMPHOCYTES # (AUTO) 1.5 X 10^3 (1.0-4.0); LYMPHOCYTES % (AUTO) 23 % (12-44); MEAN CORPUSCULAR HEMOGLOBIN 30 PG (25-34); MEAN CORPUSCULAR HGB CONC 34 G/DL (32-36); MEAN CORPUSCULAR VOLUME 87 FL (80-99); MEAN PLATELET VOLUME 10.3 FL (7.4-10.4); MONOCYTES # (AUTO) 0.7 X 10^3 (0.0-1.0); MONOCYTES % (AUTO) 10 % (0-12); NEUTROPHILS # (AUTO) 4.3 X 10^3 (1.8-7.8); NEUTROPHILS % (AUTO) 65 % (42-75); PLATELET COUNT 261 10^3/uL (130-400); RED BLOOD COUNT 4.76 10^6/uL (4.35-5.85); RED CELL DISTRIBUTION WIDTH 13.3 % (10.0-14.5); WHITE BLOOD COUNT 6.7 10^3/uL (4.3-11.0)
[2017-04-16 16:03] LABS: ALANINE AMINOTRANSFERASE 20 U/L (0-55); ALBUMIN 4.3 G/DL (3.2-4.5); ANION GAP 7 MMOL/L (5-14); ASPARTATE AMINO TRANSFERASE 16 U/L (5-34); BILIRUBIN,TOTAL 0.3 MG/DL (0.1-1.0); BLOOD UREA NITROGEN 15 MG/DL (7-18); BUN/CREATININE RATIO 16; CALCIUM 9.4 MG/DL (8.5-10.1); CARBON DIOXIDE 25 MMOL/L (21-32); CHLORIDE 107 MMOL/L (98-107); CREATININE SERUM 0.91 MG/DL (0.60-1.30); GFR ESTIMATED > 60; GLUCOSE 125 MG/DL (70-105); POTASSIUM 3.6 MMOL/L (3.6-5.0); SODIUM 139 MMOL/L (135-145)
[2017-04-16] MEDS ORDERED: morphine INJ 10 MG/ML 1ML (SYR OR VIAL) IVP STA (16:18)
[2017-04-16] MEDS ORDERED: HYDR-3812 PO (16:25)
[2017-04-16 16:27] LABS: BILIRUBIN,URINE NEGATIVE (NEGATIVE); KETONES,URINE NEGATIVE (NEGATIVE); LEUKOCYTE ESTERASE ,URINE NEGATIVE (NEGATIVE); NITRITE,URINE NEGATIVE (NEGATIVE); PH,URINE 7 (5-9); PROTEIN,URINE NEGATIVE (NEGATIVE); UROBILINOGEN,URINE NORMAL (NORMAL)
[2017-04-16 16:58] VITALS: BP 125/97
== END 2017-04-16 16:58 | disposition home or self-care (01) ==
LOC: EDUNIT# 14:08 → ER 14:10
DX: N20.0 Calculus of kidney (principal); K42.9 Umbilical hernia without obstruction or gangrene; I10 Essential (primary) hypertension; I25.10 Atherosclerotic heart disease of native coronary artery without angina pectoris; Z79.899 Other long term (current) drug therapy; Z79.82 Long term (current) use of aspirin; Z79.02 Long term (current) use of antithrombotics/antiplatelets; Z95.5 Presence of coronary angioplasty implant and graft
CPT/HCPCS: 36415; 74000; 74176; 80053; 81000; 85025; 96361; 96374

== ENCOUNTER 2017-09-26 17:53 | Emergency (ER) | payer OTHER ==
[~2017-09-26] VITALS: Ht 165.1 cm; Wt 86.2 kg
[~2017-09-26 17:53] MED LIST changes: +HYDR-3812 PO
[2017-09-26] MEDS ORDERED: NS IV 1000 ML 1,000 ML IV ONE (19:13)
[2017-09-26] MEDS ORDERED: ACETAMINOPHEN 500 MG TAB (TYLENOL) PO ONE (19:15)
[2017-09-26] MEDS ORDERED: ONDANSETRON 4 MG/2 ML (SDV) Z0FRAN IVP ONE (19:15)
--- NOTE | 2017-09-26 19:21 | ED GI ---
General Chief Complaint: Abdominal/GI Problems Stated Complaint: HEAD/BACK PAIN,N/V, (PT HAS STENT IN HEART) Nursing Triage Note: abdominal pain with n/v/d Sepsis Screen: No Definite Risk Source of Information: Patient, Spouse Exam Limitations: Language Barrier (spanishg) History of Present Illness Time Seen By Provider: 19:09 Initial Comments Patient presents to ER with his who does most of the speaking for him as he is limited in the speaker. He has a chief complaint that this morning he woke up having loose diarrhea without bloody stools or black tarry stools. He is also having nausea with some retching but no vomiting. His has given him Pedialyte but says this did not help his diarrhea. He has not taken Lomotil or Imodium. He has no sick contacts nor recent travel outside the country. He has not been camping or drinking from unsafe water sources. He says he has had stents placed in the past and is on Plavix as well as a statin, beta scar, Satnam, aspirin. He is having no chest pain or shortness of breath but this history of stents has concerned the enough that she is insistent he come to the ER tonight to be evaluated. Patient's having no numbness or pain in his jawline, neck, shoulder, arm, hand. The patient reports he also was having some back pain and points to the occiput of his neck and head. He says the pain is throbbing and bilateral and constant in nature starting about the time he started having diarrhea this morning. He does not have a history of migraines. He has not taken Tylenol, Motrin or any other pain relievers. Allergies and Home Medications Allergies Coded Allergies: No Known Drug Allergies (Verified , 07/27/08) Home Medications Aspirin 81 Mg Chew, 81 MG PO DAILY, (Reported) Atorvastatin 20 Mg Tablet, 20 MG PO HS, (Reported) Clopidogrel Bisulfate 75 Mg Tab, 75 MG PO DAILY, #90 Prescribed by: LIU COHEN on 04/08/14 1301 Famotidine 40 Mg Tablet, 40 MG PO DAILY, (Reported) Hydrocodone/Acetaminophen 1 Each Tablet, 1 EACH PO Q4H PRN for PAIN, #15 Ref 0 Prescribed by: KENY KEATING on 04/16/17 1625 Lisinopril 10 Mg Tablet, 10 MG PO DAILY, (Reported) Metoprolol Succinate 25 Mg Tab, 25 MG PO HS, (Reported) [place]-3 Fatty Acids/Fish Oil 1 Each Capsule, 1,000 MG PO DAILY, (Reported) Review of Systems Constitutional: No chills, No diaphoresis, No fever, malaise EENTM: No Eye Pain, No Ear Pain Respiratory: Denies Cough, Denies Shortness of Air Cardiovascular: Denies Chest Pain, Denies Edema, Denies Irregular Heart Rate, Denies Syncope Gastrointestinal: Denies Abdomen Distended, Denies Abdominal Pain, Denies Constipated, Diarrhea, Denies Difficulty Swallowing, Nausea, Denies Vomiting Past Jdzvnau-Vzfhzu-Cjmbhb Hx Patient Social History 2nd Hand Smoke Exposure: No Recent Foreign Travel: No Contact w/Someone Who Travel: No Recent Infectious Disease Expo: No Recent Hopitalizations: No Immunizations Up To Date Tetanus Booster (TDap): Unknown Date of Pneumonia Vaccine: Sep 05, 2014 Date of Influenza Vaccine: Sep 05, 2015 Surgeries History of Surgeries: Yes (KIDNEY STONE REMOVAL, CARDIAC CATH/STENT, ING HERNIA ) Surgeries: Cardiac, Coronary Stent, Renal Respiratory History of Respiratory Disorde: No Cardiovascular History of Cardiac Disorders: Yes (STENTS, HEART ATTACK X2) Cardiac Disorders: Coronary Artery Disease, Heart Attack, High Cholesterol, Hypertension Neurological History of Neurological Disord: No Reproductive System Hx Reproductive Disorders: No Genitourinary Genitourinary Disorders: Kidney Stones Gastrointestinal History of Gastrointestinal Di: No Musculoskeletal History of Musculoskeletal Dis: No Endocrine History of Endocrine Disorders: No Cancer History of Cancer: No Psychosocial History of Psychiatric Problem: No Integumentary History of Skin or Integumenta: No Blood Transfusions History of Blood Disorders: No Family Medical History Family Medial History: Family history: Cardiovascular disease 19 FATHER, Onset:Unknown Physical Exam Vital Signs VS - Last 72 Hours, by Label 09/26/17 18:55 Temp 100.0 Pulse 111 Resp 20 B/P (MAP) 130/86 Pulse Ox 95 O2 Delivery Room Air Capillary Refill : Less Than 3 Seconds General Appearance: WD/WN, mild distress HEENT: PERRL/EOMI, TMs normal, pharynx normal Neck: non-tender, full range of motion, supple, normal inspection Respiratory: chest non-tender, lungs clear, normal breath sounds, no respiratory distress, no accessory muscle use Cardiovascular: normal peripheral pulses, regular rate, rhythm, no edema Peripheral Pulses: 2+ Dorsalis Pedis (R), 2+ Left Dors-Pedis (L) Gastrointestinal: non tender, soft, abnormal bowel sounds (hyperactive) Extremities: normal inspection, no pedal edema, normal capillary refill Back: normal inspection, no CVA tenderness, no vertebral tenderness Neurologic/Psychiatric: charge authorizer II-XII nml as tested, no motor/sensory deficits, alert, normal mood/affect, oriented x 3 Skin: normal color, warm/dry Progress/Results/Core Measures Results/Orders Lab Results Laboratory Tests Test 09/26/17 19:00 Range/Units White Blood Count 10.1 4.3-11.0 10^3/uL Red Blood Count 5.24 4.35-5.85 10^6/uL Hemoglobin 15.8 13.3-17.7 G/DL Hematocrit 46 40-54 % Mean Corpuscular Volume 87 80-99 FL Mean Corpuscular Hemoglobin 30 25-34 PG Mean Corpuscular Hemoglobin Concent 35 32-36 G/DL Red Cell Distribution Width 13.3 10.0-14.5 % Platelet Count 259 130-400 10^3/uL Mean Platelet Volume 10.3 7.4-10.4 FL Neutrophils (%) (Auto) 85 H 42-75 % Lymphocytes (%) (Auto) 7 L 12-44 % Monocytes (%) (Auto) 7 0-12 % Eosinophils (%) (Auto) 1 0-10 % Basophils (%) (Auto) 0 0-10 % Neutrophils # (Auto) 8.6 H 1.8-7.8 X 10^3 Lymphocytes # (Auto) 0.7 L 1.0-4.0 X 10^3 Monocytes # (Auto) 0.7 0.0-1.0 X 10^3 Eosinophils # (Auto) 0.1 0.0-0.3 10^3/uL Basophils # (Auto) 0.0 0.0-0.1 10^3/uL Neutrophils % (Manual) 78 % Lymphocytes % (Manual) 15 % Monocytes % (Manual) 2 % Eosinophils % (Manual) 2 % Basophils % (Manual) 0 % Band Neutrophils 3 % Blood Morphology Comment NORMAL Sodium Level 137 135-145 MMOL/L Potassium Level 4.0 3.6-5.0 MMOL/L Chloride Level 103 98-107 MMOL/L Carbon Dioxide Level 25 21-32 MMOL/L Anion Gap 9 5-14 MMOL/L Blood Urea Nitrogen 19 H 7-18 MG/DL Creatinine 0.94 0.60-1.30 MG/DL Estimat Glomerular Filtration Rate > 60 BUN/Creatinine Ratio 20 Glucose Level 116 H 70-105 MG/DL Calcium Level 9.2 8.5-10.1 MG/DL Magnesium Level 2.0 1.8-2.4 MG/DL Total Bilirubin 0.8 0.1-1.0 MG/DL Aspartate Amino Transf (AST/SGOT) 19 5-34 U/L Alanine Aminotransferase (ALT/SGPT) 32 0-55 U/L Alkaline Phosphatase 102 40-136 U/L Troponin I < 0.30 <0.30 NG/ML Total Protein 7.5 6.4-8.2 GM/DL Albumin 4.3 3.2-4.5 GM/DL My Orders Orders - DEONTE OCAMPO Cbc With Automated Diff (09/26/17 19:13) Comprehensive Metabolic Panel (09/26/17 19:13) Magnesium (09/26/17 19:13) Troponin I (09/26/17 19:13) Saline Lock/Iv-Start (09/26/17 19:13) Ns Iv 1000 Ml (Sodium Chloride 0.9%) (09/26/17 19:13) Ondansetron Injection (Zofran Injectio (09/26/17 19:15) Acetaminophen Tablet (Tylenol Tablet) (09/26/17 19:15) Manual Differential (09/26/17 19:00) Medications Given in ED Current Medications Medications Dose Ordered Sig/Ramírez Route Start Time Stop Time Status Last Admin Dose Admin Acetaminophen 1,000 mg ONCE ONCE PO 09/26/17 19:15 09/26/17 19:17 DC 09/26/17 19:43 1,000 MG Ondansetron HCl 4 mg ONCE ONCE IVP 09/26/17 19:15 09/26/17 19:17 DC 09/26/17 19:43 4 MG Sodium Chloride 1,000 ml @ 0 mls/hr Q0M ONCE IV 09/26/17 19:13 09/26/17 19:17 DC 09/26/17 19:44 0 MLS/HR Vital Signs/I&O Vital Sign - Last 12Hours 09/26/17 18:55 Temp 100.0 Pulse 111 Resp 20 B/P (MAP) 130/86 Pulse Ox 95 O2 Delivery Room Air Blood Pressure Mean: 101 Progress Note #1: Time: 19:20 Progress Note Looks like gastroenteritis with mild hydration. Oropharynx is dry. We'll give him a liter fluids and some nausea medicines and instructions to take Imodium and Tylenol. We'll go ahead and obtain labs to make sure he has not gotten critical on anything as well as look at a troponin and if everything else looks okay we'll let him go home. Progress Note #2: Time: 19:54 Progress Note Patient feels a little better. He has not gotten his Tylenol just yet but his nausea is resolved. He still appears to have a viral gastroenteritis without leukocytosis and he is responding to the Zofran. We will let him go with a conservative plan to follow up as needed. Departure Impression Impression: Primary Impression: Gastroenteritis Additional Impression: Dehydration, mild Disposition: 01 HOME, SELF-CARE Condition: Stable Departure-Patient Inst. Decision time for Depature: 20:06 Referrals: DIANA SALVADOR DO (PCP) Primary Care Physician NYA CLARK MD FACP FACC CCDS (Family) Primary Care Physician Patient Instructions: Viral Gastroenteritis, Adult (DC) Add. Discharge Instructions: Drink plenty of fluids. Use Zofran every 6 hours as needed for the nausea. If you have diarrhea take 2 tablets of Imodium and every 4 hours after that if you still have loose stools you should take one more tablet of Imodium until you are regulated. You will feel much better if you keep fluids down. You may use Gatorade. Tylenol will help with your headache 1000 mg every 8 hours as needed. All discharge instructions reviewed with patient and/or family. Voiced understanding. Scripts Ondansetron (Ondansetron Odt) 4 Mg Tab.rapdis 4 MG PO Q6H Y for NAUSEA/VOMITING, #8 TAB 0 Refills Prov: DEONTE OCAMPO 09/26/17 Copy Copies To 1: AUDRA KERR TITUS J Sep 26, 2017 19:21
[2017-09-26 19:23] LABS: BASOPHILS % (AUTO) 0 % (0-10); EOSINOPHILS # (AUTO) 0.1 10^3/uL (0.0-0.3); EOSINOPHILS % (AUTO) 1 % (0-10); LYMPHOCYTES # (AUTO) 0.7 X 10^3 (1.0-4.0); LYMPHOCYTES % (AUTO) 7 % (12-44); MEAN CORPUSCULAR HEMOGLOBIN 30 PG (25-34); MEAN CORPUSCULAR HGB CONC 35 G/DL (32-36); MEAN CORPUSCULAR VOLUME 87 FL (80-99); MEAN PLATELET VOLUME 10.3 FL (7.4-10.4); MONOCYTES # (AUTO) 0.7 X 10^3 (0.0-1.0); MONOCYTES % (AUTO) 7 % (0-12); NEUTROPHILS # (AUTO) 8.6 X 10^3 (1.8-7.8); NEUTROPHILS % (AUTO) 85 % (42-75); PLATELET COUNT 259 10^3/uL (130-400); RED BLOOD COUNT 5.24 10^6/uL (4.35-5.85); RED CELL DISTRIBUTION WIDTH 13.3 % (10.0-14.5); WHITE BLOOD COUNT 10.1 10^3/uL (4.3-11.0)
[2017-09-26 19:38] LABS: ALANINE AMINOTRANSFERASE 32 U/L (0-55); ALBUMIN 4.3 GM/DL (3.2-4.5); ANION GAP 9 MMOL/L (5-14); ASPARTATE AMINO TRANSFERASE 19 U/L (5-34); BILIRUBIN,TOTAL 0.8 MG/DL (0.1-1.0); BLOOD UREA NITROGEN 19 MG/DL (7-18); BUN/CREATININE RATIO 20; CALCIUM 9.2 MG/DL (8.5-10.1); CARBON DIOXIDE 25 MMOL/L (21-32); CHLORIDE 103 MMOL/L (98-107); CREATININE SERUM 0.94 MG/DL (0.60-1.30); GFR ESTIMATED > 60; GLUCOSE 116 MG/DL (70-105); SODIUM 137 MMOL/L (135-145); TOTAL PROTEIN 7.5 GM/DL (6.4-8.2)
[2017-09-26 19:43] LABS: BAND NEUTROPHILS 3 %; BASOPHILS % (MANUAL) 0 %; EOSINOPHILS % (MANUAL) 2 %; LYMPHOCYTES % (MANUAL) 15 %; NEUTROPHILS % (MANUAL) 78 %
[2017-09-26 19:44] LABS: TROPONIN I < 0.30 NG/ML (<0.30)
[2017-09-26] MEDS ORDERED: ONDA4TAB11 PO (20:00)
[2017-09-26 20:25] VITALS: BP 122/70
== END 2017-09-26 20:25 | disposition home or self-care (01) ==
LOC: EDUNIT# 17:53 → ER 17:55
DX: K52.9 Noninfective gastroenteritis and colitis, unspecified (principal); E86.0 Dehydration; I25.10 Atherosclerotic heart disease of native coronary artery without angina pectoris; I25.2 Old myocardial infarction; E78.00 Pure hypercholesterolemia, unspecified; I10 Essential (primary) hypertension; Z95.5 Presence of coronary angioplasty implant and graft; Z87.442 Personal history of urinary calculi; Z79.02 Long term (current) use of antithrombotics/antiplatelets; Z79.82 Long term (current) use of aspirin
CPT/HCPCS: 36415; 80053; 83735; 84484; 85007; 85027

== ENCOUNTER → 2018-03-04 | Outpatient (CLI) | payer OTHER ==
[~2018-03-04] MED LIST changes: +ACHD5005 PO; -HYDR-3812 PO; +ONDA4TAB11 PO
[2018-03-04 08:26] LABS: BASOPHILS % (AUTO) 0 % (0-10); EOSINOPHILS # (AUTO) 0.2 10^3/uL (0.0-0.3); EOSINOPHILS % (AUTO) 3 % (0-10); HEMATOCRIT 44 % (40-54); HEMOGLOBIN 15.1 G/DL (13.3-17.7); LYMPHOCYTES # (AUTO) 2.2 X 10^3 (1.0-4.0); LYMPHOCYTES % (AUTO) 32 % (12-44); MEAN CORPUSCULAR HEMOGLOBIN 30 PG (25-34); MEAN CORPUSCULAR HGB CONC 35 G/DL (32-36); MEAN CORPUSCULAR VOLUME 86 FL (80-99); MONOCYTES # (AUTO) 0.7 X 10^3 (0.0-1.0); MONOCYTES % (AUTO) 11 % (0-12); NEUTROPHILS # (AUTO) 3.7 X 10^3 (1.8-7.8); NEUTROPHILS % (AUTO) 54 % (42-75); PLATELET COUNT 282 10^3/uL (130-400); RED BLOOD COUNT 5.05 10^6/uL (4.35-5.85); RED CELL DISTRIBUTION WIDTH 13.8 % (10.0-14.5); WHITE BLOOD COUNT 6.8 10^3/uL (4.3-11.0)
[2018-03-04 08:45] LABS: ALANINE AMINOTRANSFERASE 40 U/L (0-55); ALBUMIN 4.4 GM/DL (3.2-4.5); ALKALINE PHOSPHATASE 77 U/L (40-136); BILIRUBIN,TOTAL 0.6 MG/DL (0.1-1.0); BUN/CREATININE RATIO 20; CALCIUM 9.4 MG/DL (8.5-10.1); CARBON DIOXIDE 23 MMOL/L (21-32); CHLORIDE 107 MMOL/L (98-107); CHOLESTEROL 163 MG/DL (< 200); CREATININE SERUM 0.84 MG/DL (0.60-1.30); GFR ESTIMATED > 60; GLUCOSE 97 MG/DL (70-105); HDL CHOLESTEROL 52 MG/DL (40-60); POTASSIUM 4.3 MMOL/L (3.6-5.0); SODIUM 140 MMOL/L (135-145); TOTAL PROTEIN 7.4 GM/DL (6.4-8.2); TRIGLYCERIDES 101 MG/DL (<150); VLDL CHOLESTEROL 20 MG/DL (5-40)
== END ==
LOC: LAB 08:05
PROVIDERS: ATTEND Family Medicine
DX: Z00.00 Encounter for general adult medical examination without abnormal findings (principal); I10 Essential (primary) hypertension; E78.5 Hyperlipidemia, unspecified; R73.9 Hyperglycemia, unspecified
CPT/HCPCS: 36415; 80053; 80061; 83036; 84153; 84443; 85025

== ENCOUNTER → 2018-09-28 | Outpatient (CLI) | payer OTHER ==
[~2018-09-28] MED LIST changes: +CATHETER FLUSH 10 ML SYR IV PRN; +REGADENOSON 0.4 MG/5 ML SYR (LEXISCAN) IV ONE
--- NOTE | 2018-09-28 21:15 | STRESS TEST ---
DATE OF SERVICE: 09/28/2018 RESTING AND POST REGADENOSON TECHNETIUM-99M TETROFOSMIN SPECT CT IMAGING CLINICAL DIAGNOSIS: Coronary artery disease. Baseline images were carried out after injection of 10.56 mCi of technetium-99m tetrofosmin. This was followed by 0.4 mg of regadenoson and 29.9 mCi of technetium-99m tetrofosmin for stress imaging. The electrocardiogram showed sinus rhythm at baseline. There were QS complexes in lead III with T-wave inversion. The electrocardiogram did not change significantly with regadenoson infusion. The patient tolerated the procedure well. Review of images at rest and following stress indicates an inferior perfusion defect with a small amount of reversibility. Left ventricular ejection fraction is calculated to be 48%. Left ventricular end diastolic volume is 122 mL. TID is absent (0.93). Gated images show inferior hypokinesis to akinesis. CONCLUSIONS: 1. This study is indicative of inferior wall myocardial infarction with a small amount of rolf-infarct ischemia. 2. Inferior hypokinesis to akinesis. 3. Left ventricular ejection fraction is calculated to be 48%. Job ID: [id number] DocumentID: [id number] Dictated Date: 09/28/2018 18:36:22 Physical Integration Practitioner Date: 09/28/2018 21:14:34 Dictated By: NYA CLARK MD, MA, FACP, FACC,
== END ==
LOC: CARD 07:32
PROVIDERS: ATTEND Nurse Practitioner Family
DX: I25.10 Atherosclerotic heart disease of native coronary artery without angina pectoris (principal); E78.5 Hyperlipidemia, unspecified; I25.2 Old myocardial infarction
CPT/HCPCS: 78452; 93017

== ENCOUNTER → 2018-09-30 | Outpatient (CLI) | payer OTHER ==
[~2018-09-30] MED LIST changes: -CATHETER FLUSH 10 ML SYR IV PRN; -REGADENOSON 0.4 MG/5 ML SYR (LEXISCAN) IV ONE
[2018-09-30 08:26] LABS: BASOPHILS % (AUTO) 1 % (0-10); EOSINOPHILS # (AUTO) 0.1 10^3/uL (0.0-0.3); EOSINOPHILS % (AUTO) 1 % (0-10); HEMATOCRIT 43 % (40-54); HEMOGLOBIN 14.9 G/DL (13.3-17.7); LYMPHOCYTES # (AUTO) 2.3 X 10^3 (1.0-4.0); LYMPHOCYTES % (AUTO) 38 % (12-44); MEAN CORPUSCULAR HEMOGLOBIN 30 PG (25-34); MEAN CORPUSCULAR HGB CONC 35 G/DL (32-36); MEAN CORPUSCULAR VOLUME 87 FL (80-99); MEAN PLATELET VOLUME 9.7 FL (7.4-10.4); MONOCYTES # (AUTO) 0.5 X 10^3 (0.0-1.0); MONOCYTES % (AUTO) 9 % (0-12); NEUTROPHILS # (AUTO) 3.1 X 10^3 (1.8-7.8); NEUTROPHILS % (AUTO) 51 % (42-75); PLATELET COUNT 283 10^3/uL (130-400); RED BLOOD COUNT 4.93 10^6/uL (4.35-5.85); RED CELL DISTRIBUTION WIDTH 13.5 % (10.0-14.5); WHITE BLOOD COUNT 6.1 10^3/uL (4.3-11.0)
[2018-09-30 08:53] LABS: ALANINE AMINOTRANSFERASE 24 U/L (0-55); ALBUMIN 4.5 GM/DL (3.2-4.5); ALKALINE PHOSPHATASE 82 U/L (40-136); BILIRUBIN,TOTAL 0.6 MG/DL (0.1-1.0); BUN/CREATININE RATIO 17; CALCIUM 9.6 MG/DL (8.5-10.1); CARBON DIOXIDE 26 MMOL/L (21-32); CHLORIDE 106 MMOL/L (98-107); CHOLESTEROL 174 MG/DL (< 200); CREATININE SERUM 0.86 MG/DL (0.60-1.30); GFR ESTIMATED > 60; GLUCOSE 101 MG/DL (70-105); HDL CHOLESTEROL 53 MG/DL (40-60); POTASSIUM 4.4 MMOL/L (3.6-5.0); SODIUM 139 MMOL/L (135-145); TOTAL PROTEIN 7.4 GM/DL (6.4-8.2); TRIGLYCERIDES 141 MG/DL (<150); VLDL CHOLESTEROL 28 MG/DL (5-40)
== END ==
LOC: LAB 08:10
PROVIDERS: ATTEND Family Medicine
DX: I10 Essential (primary) hypertension (principal); E78.2 Mixed hyperlipidemia; I25.10 Atherosclerotic heart disease of native coronary artery without angina pectoris; R73.9 Hyperglycemia, unspecified
CPT/HCPCS: 36415; 80053; 80061; 83036; 85025

== ENCOUNTER → 2018-10-28 | Outpatient (CLI) | payer OTHER ==
--- NOTE | 2018-10-28 18:09 | Diagnostic Imaging Report ---
CLINICAL INDICATION: Patient with bilateral upper shoulder blade pain. EXAM: X-ray of the thoracic spine, three views including swimmer's view. COMPARISON: None. FINDINGS: There is limited visualization of the upper and mid thoracic spine on the lateral view due to overlapping bone, soft tissue, and lung shadows obscuring bony detail. There is no acute thoracic spine fracture or dislocation. There are small spurs involving the lower thoracic and upper lumbar spine. The remainder of this exam is unremarkable as visualized. 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 Dictated by: Dictated on workstation # [id number]
== END ==
LOC: RAD 15:26
PROVIDERS: ATTEND Family Medicine
DX: M47.814 Spondylosis without myelopathy or radiculopathy, thoracic region (principal)
CPT/HCPCS: 72072

== ENCOUNTER 2018-11-05 12:49 | Day surgery (SDC) | payer OTHER ==
[~2018-11-05] VITALS: Ht 170.2 cm; Wt 90.7 kg
[2018-11-05] VITALS (12 sets, daily range): BP systolic 101–134; BP diastolic 49–89
--- OUTSIDE RECORDS SUMMARY | 2018-11-05 12:52 | XMS REPORT ---
Author Author AUDRA KERR Organization [facility] Address [address] [place] [address] Care Team Providers Care Storm Door Maker Name Role Phone AUDRA KERR Unavailable PROBLEMS Unknown Problems ALLERGIES No Information ENCOUNTERS Encounter Location Date Diagnosis [facility] [address] [facility] [id number] [place] [address] Aug, Encounter for immunization Z23 IMMUNIZATIONS Vaccine Route Administration Date Status FLULAVAL QUAD 0.5ML (6 MO & UP) 2018 IM Intramuscular Sep 22, 2018 Administered SOCIAL HISTORY Never Assessed REASON FOR VISIT Flu shot-awoods PLAN OF CARE VITAL SIGNS MEDICATIONS Unknown Medications RESULTS No Results PROCEDURES Procedure Date Ordered Result Body Site FLULAVAL QUAD 0.5ML (6 MO AND UP) 2018 Sep 22, 2018 SINGLE IMMUNIZATION ADMIN Sep 22, 2018 INSTRUCTIONS MEDICATIONS ADMINISTERED No Known Medications
--- OUTSIDE RECORDS SUMMARY | 2018-11-05 12:54 | XMS REPORT | Continuity of Care Document ---
Author Author [facility] Organization [facility] Address Unknown Phone Unavailable Allergies Active Description Code Type Severity Reaction Onset Reported/Identified Relationship to Patient Clinical Status Yes No Known Drug Allergies [id number] Drug Allergy Unknown N/A 02/04/2016 Medications There is no data. Problems Date Dx Coded Attending Type Code Diagnosis Diagnosed By 04/08/2014 NYA CLARK MD, FACC, FACP CCDS Ot 272.4 HYPERLIPIDEMIA NEC/NOS 04/08/2014 NYA CLARK MD, FACC, FACP CCDS Ot 278.00 OBESITY, NOS 04/08/2014 NYA CLARK MD, FACC, FACP CCDS Ot 414.01 CORONARY ATHEROSCLEROSIS OF [place] CORON 04/08/2014 NYA CLARK MD, FACC, FACP CCDS Ot V45.82 PERCUTANEOUS TRANSLUM CORON ANGIOPLASTY 04/08/2014 NYA CLARK MD, FACC, FACP CCDS Ot V58.69 OTH MED,LT,CURRENT USE 04/08/2014 NYA CLARK MD, FACC, FACP CCDS Ot V85.31 BODY MASS INDEX 31.0-31.9, ADULT 04/25/2014 NIYAH COATES MD Ot 272.4 HYPERLIPIDEMIA NEC/NOS 04/25/2014 NIYAH COATES MD Ot 401.9 HYPERTENSION NOS 04/25/2014 NIYAH COATES MD Ot 410.71 AC MYOCARDIAL INFARCT,SUBENDO INFARCT,IN 04/25/2014 NIYAH COATES MD Ot 414.01 CORONARY ATHEROSCLEROSIS OF [place] CORON 04/25/2014 NIYAH COATES MD Ot 996.72 OTH COMPLICATIONS DUE TO OTH CARD DEVICE 04/25/2014 NIYAH COATES MD Ot V15.81 HX OF PAST NONCOMPLIANCE 04/25/2014 NIYAH COATES MD Ot V45.82 PERCUTANEOUS TRANSLUM CORON ANGIOPLASTY 10/16/2014 SOLE MENDEZ DO Ot 435.9 01/18/2015 JORGE DEY FELLER OPERATOR Ot 272.4 01/18/2015 JORGE DEY L FELLER OPERATOR Ot 401.9 01/18/2015 BAIMA, JORGE L FELLER OPERATOR Ot 414.00 03/30/2015 BAIMA, JORGE L FELLER OPERATOR Ot 272.4 03/30/2015 BAIMA, JORGE L FELLER OPERATOR Ot 414.00 03/30/2015 EDUARDO MCKENZIE [facility], ALI FACP CCDS Ot 272.4 03/30/2015 EDUARDO MCKENZIE [facility], ALI FACP CCDS Ot 414.00 03/30/2015 EDUARDO MCKENZIE [facility], ALI FACP CCDS Ot 414.8 03/30/2015 EDUARDO MCKENZIE [facility], ALI FACP CCDS Ot 272.4 03/30/2015 EDUARDO MCKENZIE [facility], ALI FACP CCDS Ot 414.00 03/30/2015 EDUARDO MCKENZIE [facility], ALI FACP CCDS Ot 414.8 03/30/2015 CHARLOTTENDER DO, SOLE S Ot 592.0 03/30/2015 [facility] Ot 592.1 03/30/2015 [facility] S Ot 592.0 03/30/2015 [facility] S Ot 435.9 03/30/2015 BAIMAJORGE L FELLER OPERATOR Ot 272.4 03/30/2015 BAIJORGE HILL L FELLER OPERATOR Ot 401.9 03/30/2015 BAIMAJORGE L FELLER OPERATOR Ot 414.00 03/30/2015 [facility] SOLE S Ot 250.00 03/30/2015 [facility] SOLE S Ot 780.79 03/30/2015 SERGIO HINTON MD Ot 780.4 DIZZINESS AND GIDDINESS 03/30/2015 [facility] S Ot 250.00 03/30/2015 [facility] S Ot 780.79 07/12/2015 HUI QUACH DO Ot 276.51 DEHYDRATION 07/12/2015 HUI QUACH DO Ot 599.0 URIN TRACT INFECTION NOS 07/12/2015 HUI QUACH DO Ot 780.4 DIZZINESS AND GIDDINESS 07/12/2015 HUI QUACH DO Ot 785.1 PALPITATIONS 07/12/2015 CHADJORGE HILL L FELLER OPERATOR Ot 272.4 07/12/2015 BAIJORGE HILL L FELLER OPERATOR Ot 414.00 07/12/2015 EDUARDO MCKENZIE FACC, ALI FACP CCDS Ot 272.4 07/12/2015 EDUARDO MCKENZIE FAC, ALI FACP CCDS Ot 414.00 07/12/2015 EDUARDO MCKENZIE FACC, ALI FACP CCDS Ot 414.8 07/12/2015 EDUARDO MCKENZIE FAC, ALI FACP CCDS Ot 272.4 07/12/2015 EDUARDO MCKENZIE FAC, ALI FACP CCDS Ot 414.00 07/12/2015 EDUARDO MCKENZIE FAC, ALI FACP CCDS Ot 414.8 07/12/2015 ORENDER DO, SOLE S Ot 592.0 07/12/2015 ORENDER DO, SOLE S Ot 592.1 07/12/2015 ORENDER DO, SOLE S Ot 592.0 07/12/2015 ORENDER DO, SOLE S Ot 435.9 07/12/2015 CHADMAJORGE L FELLER OPERATOR Ot 272.4 07/12/2015 CHADMASUSANJORGE L FELLER OPERATOR Ot 401.9 07/12/2015 BAIMA JORGE L FELLER OPERATOR Ot 414.00 07/12/2015 ORENDER DO, SOLE S Ot 250.00 07/12/2015 ORENDER DO, SOLE S Ot 780.79 09/24/2015 BAIMAJORGE L FELLER OPERATOR Ot 272.4 09/24/2015 CHADMASUSANJORGE L FELLER OPERATOR Ot 414.00 09/24/2015 EDUARDO MCKENZIE FAC, ALI FACP CCDS Ot 272.4 09/24/2015 EDUARDO MCKENZIE FAC, ALI FACP CCDS Ot 414.00 09/24/2015 EDUARDO MCKENZIE FAC, ALI FACP CCDS Ot 414.8 09/24/2015 EDUARDO MCKENZIE FACC, ALI FACP CCDS Ot 272.4 09/24/2015 EDUARDO MCKENZIE FAC, ALI FACP CCDS Ot 414.00 09/24/2015 EDUARDO MCKENZIE FACC, ALI FACP CCDS Ot 414.8 09/24/2015 ORENDER DO, SOLE S Ot 592.0 09/24/2015 ORENDER DO, SOLE S Ot 592.1 09/24/2015 ORENDER DO, SOLE S Ot 592.0 09/24/2015 [facility] , SOLE S Ot 435.9 09/24/2015 JORGE DEY FELLER OPERATOR Ot 272.4 09/24/2015 JORGE DEY FELLER OPERATOR Ot 401.9 09/24/2015 JORGE DEY FELLER OPERATOR Ot 414.00 09/24/2015 [facility] , SOLE S Ot 250.00 09/24/2015 CHARLOTTEBANNER , SOLE S Ot 780.79 09/24/2015 NELLY BARGER DO Ot K52.9 NONINFECTIVE GASTROENTERITIS AND COLITIS 09/24/2015 JOAQUÍN BARGER DOA K Ot R53.1 WEAKNESS 10/17/2015 [facility] , SOLE S Ot R11.2 10/17/2015 [facility] , SOLE S Ot R74.8 10/30/2015 [facility] , SOLE S Ot R11.2 10/30/2015 [facility] , SOLE S Ot R74.8 11/12/2015 JOSE MCKENZIE, LOREN Cardenas Ot K20.9 ESOPHAGITIS, UNSPECIFIED 11/12/2015 JOSE MCKENZIE, LOREN Cardenas Ot K26.9 DUODENAL ULCER, UNSP ACUTE OR CHRONIC 11/12/2015 JOSE MCKENZIE, LOREN Cardenas Ot K29.70 GASTRITIS, UNSPECIFIED, WITHOUT BLEEDING 11/12/2015 JOSE MCKENZIE, LOREN Cardenas Ot K44.9 DIAPHRAGMATIC HERNIA WITHOUT OBSTRUCTION 01/08/2016 CHADJORGE HILL FELLER OPERATOR Ot 272.4 01/08/2016 CHADJORGE HILL FELLER OPERATOR Ot 414.00 01/08/2016 EDUARDO MCKENZIE FAC, ALI FACP CCDS Ot 272.4 01/08/2016 EDUARDO MCKENZIE FAC, ALI FACP CCDS Ot 414.00 01/08/2016 EDUARDO MCKENZIE FACC, ALI FACP CCDS Ot 414.8 01/08/2016 EDUARDO MCKENZIE FACC, ALI FACP CCDS Ot 272.4 01/08/2016 EDUARDO MCKENZIE FAC, ALI FACP CCDS Ot 414.00 01/08/2016 EDUARDO MCKENZIE FACC, ALI FACP CCDS Ot 414.8 01/08/2016 CHARLOTTEBANNER SOLE S Ot 592.0 01/08/2016 ORENDER DO, SOLE S Ot 592.1 01/08/2016 ORENDER DO, SOLE S Ot 592.0 01/08/2016 ORENDER DO, SOLE S Ot 435.9 01/08/2016 BAIJORGE HILL L FELLER OPERATOR Ot 272.4 01/08/2016 BAIJORGE HILL L FELLER OPERATOR Ot 401.9 01/08/2016 BAIMAJORGE L FELLER OPERATOR Ot 414.00 01/08/2016 ORENDER DO, SOLE S Ot 250.00 01/08/2016 ORENDER DO, SOLE S Ot 780.79 01/08/2016 ORENDER DO, SOLE S Ot R11.2 01/08/2016 [facility] Ot R74.8 01/08/2016 JOSE MCKENZIE, LOREN Cardenas Ot Z01.818 01/23/2016 EDUARDO MCKENZIE FACC, ALI FACP CCDS Ot E78.4 01/23/2016 EDUARDO MCKENZIE FACC, ALI FACP CCDS Ot I25.10 01/23/2016 EDUARDO MCKENZIE FACC, ALI FACP CCDS Ot I25.2 01/23/2016 EDUARDO MCKENZIE FACC, ALI FACP CCDS Ot R07.89 01/23/2016 EDUARDO MCKENZIE FACC, ALI FACP CCDS Ot E78.4 01/23/2016 EDUARDO MCKENZIE FACC, ALI FACP CCDS Ot I25.10 01/23/2016 EDUARDO MCKENZIE FACC, ALI FACP CCDS Ot I25.2 01/23/2016 EDUARDO MCKENZIE FACC, ALI FACP CCDS Ot R07.89 02/04/2016 JOSE MCKENZIE, LOREN Cardenas Ot K64.0 FIRST DEGREE HEMORRHOIDS 02/21/2016 JOSE MCKENZIE, LOREN Cardenas Ot K64.0 07/31/2016 CHADJORGE HILL L FELLER OPERATOR Ot 272.4 HYPERLIPIDEMIA NEC/NOS 07/31/2016 CHADJORGE HILL L FELLER OPERATOR Ot 414.00 CORON ATHEROSCLER NOS TYPE VESSEL, NATIV 07/31/2016 EDUARDO MCKENZIE FACC, ALI FACP CCDS Ot 272.4 HYPERLIPIDEMIA NEC/NOS 07/31/2016 EDUARDO MCKENZIE FACC, ALI FACP CCDS Ot 414.00 CORON ATHEROSCLER NOS TYPE VESSEL, NATIV 07/31/2016 EDUARDO MCKENZIE FACC, NYA FACP CCDS Ot 414.8 CHR ISCHEMIC HRT DIS NEC 07/31/2016 EDUARDO MCKENZIE FACC, NYA FACP CCDS Ot 272.4 HYPERLIPIDEMIA NEC/NOS 07/31/2016 EDUARDO MCKENZIE FACC, NYA FACP CCDS Ot 414.00 CORON ATHEROSCLER NOS TYPE VESSEL, NATIV 07/31/2016 EDUARDO MCKENZIE FACC, NYA FACP CCDS Ot 414.8 CHR ISCHEMIC HRT DIS NEC 07/31/2016 ORENDER DO, SOLE S Ot 592.0 CALCULUS OF KIDNEY 07/31/2016 ORENDER DO, SOLE S Ot 592.1 CALCULUS OF URETER 07/31/2016 ORENDER DO, SOLE S Ot 592.0 CALCULUS OF KIDNEY 07/31/2016 ORENDER DO, SOLE S Ot 435.9 TRANS CEREB ISCHEMIA NOS 07/31/2016 JORGE DEY L FELLER OPERATOR Ot 272.4 HYPERLIPIDEMIA NEC/NOS 07/31/2016 JORGE DEY L FELLER OPERATOR Ot 401.9 HYPERTENSION NOS 07/31/2016 CHADMAJORGE L FELLER OPERATOR Ot 414.00 CORON ATHEROSCLER NOS TYPE VESSEL, NATIV 07/31/2016 ORENDER DO, SOLE S Ot 250.00 DIAB MARK WO COMPL, TYPE II OR UNSPEC TY 07/31/2016 ORENDER DO, SOLE S Ot 780.79 OTH MALAISE FATIGUE 07/31/2016 CHARLOTTENDER DO, SOLE S Ot R11.2 NAUSEA WITH VOMITING, UNSPECIFIED 07/31/2016 ORENDER DO, SOLE S Ot R74.8 ABNORMAL LEVELS OF OTHER SERUM ENZYMES 07/31/2016 JOSE MCKENZIE, LOREN Cardenas Ot Z01.818 ENCOUNTER FOR OTHER PREPROCEDURAL EXAMIN 07/31/2016 EDUARDO MCKENZIE FACC, NYA FACP CCDS Ot E78.4 OTHER HYPERLIPIDEMIA 07/31/2016 EDUARDO MCKENZIE FACC, NYA FACP CCDS Ot I25.10 ATHSCL HEART DISEASE OF [place] CORONARY 07/31/2016 EDUARDO MCKENZIE FACC, NYA FACP CCDS Ot I25.2 OLD MYOCARDIAL INFARCTION 07/31/2016 EDUARDO MCKENZIE FACC, NYA FACP CCDS Ot R07.89 OTHER CHEST PAIN 07/31/2016 EDUARDO MCKENZIE FACC, NYA FACP CCDS Ot E78.4 OTHER HYPERLIPIDEMIA 07/31/2016 EDUARDO MCKENZIE FAC, ALI FACP CCDS Ot I25.10 ATHSCL HEART DISEASE OF [place] CORONARY 07/31/2016 EDUARDO MCKENZIE FAC, ALI FACP CCDS Ot I25.2 OLD MYOCARDIAL INFARCTION 07/31/2016 EDUARDO MCKENZIE FAC, ALI FACP CCDS Ot R07.89 OTHER CHEST PAIN 07/31/2016 JOSE MCKENZIE, LOREN Cardenas Ot Z01.818 ENCOUNTER FOR OTHER PREPROCEDURAL EXAMIN 07/31/2016 BAIMA, JORGE L FELLER OPERATOR Ot E78.4 OTHER HYPERLIPIDEMIA 07/31/2016 BAIMA, JORGE L FELLER OPERATOR Ot I25.10 ATHSCL HEART DISEASE OF [place] CORONARY 07/31/2016 BAIMA, JORGE L FELLER OPERATOR Ot I25.5 ISCHEMIC CARDIOMYOPATHY 07/31/2016 BAIMA, JORGE L FELLER OPERATOR Ot R07.89 OTHER CHEST PAIN 08/08/2016 BAIMA, JORGE L FELLER OPERATOR Ot E78.4 OTHER HYPERLIPIDEMIA 08/08/2016 BAIMA, JORGE L FELLER OPERATOR Ot I25.10 ATHSCL HEART DISEASE OF [place] CORONARY 08/08/2016 BAIMA, JOGRE L FELLER OPERATOR Ot I25.5 ISCHEMIC CARDIOMYOPATHY 08/08/2016 BAIMA, JORGE L FELLER OPERATOR Ot R07.89 OTHER CHEST PAIN 09/05/2016 ORENDER DO, SOLE S Ot I25.10 ATHSCL HEART DISEASE OF [place] CORONARY 09/05/2016 ORENDER DO, SOLE S Ot R42 DIZZINESS AND GIDDINESS 09/05/2016 ORENDER DO, SOLE S Ot R73.9 HYPERGLYCEMIA, UNSPECIFIED 09/05/2016 ORENDER DO, SOLE S Ot I25.10 ATHSCL HEART DISEASE OF [place] CORONARY 09/05/2016 ORENDER DO, SOLE S Ot R42 DIZZINESS AND GIDDINESS 09/05/2016 ORENDER DO, SOLE S Ot R73.9 HYPERGLYCEMIA, UNSPECIFIED 09/05/2016 ORENDER DO, SOLE S Ot I25.10 ATHSCL HEART DISEASE OF [place] CORONARY 09/05/2016 ORENDER DO, SOLE S Ot R42 DIZZINESS AND GIDDINESS 09/05/2016 ORENDER DO, SOLE S Ot R73.9 HYPERGLYCEMIA, UNSPECIFIED 09/17/2016 ORENDER DO, SOLE S Ot I25.10 ATHSCL HEART DISEASE OF [place] CORONARY 09/17/2016 CHARLOTTENDER DO, SOLE S Ot R42 DIZZINESS AND GIDDINESS 09/17/2016 CHARLOTTENDER DO, SOLE S Ot R73.9 HYPERGLYCEMIA, UNSPECIFIED 01/27/2017 CHARLOTTENDER DO, SOLE S Ot E78.2 MIXED HYPERLIPIDEMIA 01/27/2017 CHARLOTTENDER DO, SOLE S Ot I10 ESSENTIAL (PRIMARY) HYPERTENSION 01/27/2017 CHARLOTTENDER DO, SOLE S Ot I25.10 ATHSCL HEART DISEASE OF [place] CORONARY 02/03/2017 EDUARDO MCKENZIE FACC, ALI FACP CCDS Ot 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 02/03/2017 EDUARDO MCKENZIE FACC, ALI FACP CCDS Ot I25.10 ATHSCL HEART DISEASE OF [place] CORONARY 02/03/2017 EDUARDO MCKENZIE FACC, ALI FACP CCDS Ot I25.2 OLD MYOCARDIAL INFARCTION 02/04/2017 EDUARDO MCKENZIE FACC, ALI FACP CCDS Ot 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 02/04/2017 EDUARDO MCKENZIE FACFabiano, ALI FACP CCDS Ot I25.10 ATHSCL HEART DISEASE OF [place] CORONARY 02/04/2017 EDUARDO MCKENZIE FACC, ALI FACP CCDS Ot I25.2 OLD MYOCARDIAL INFARCTION 2017 DAVIER , SOLE S Ot E78.2 MIXED HYPERLIPIDEMIA 2017 CHARLOTTENDER DO, SOLE S Ot I10 ESSENTIAL (PRIMARY) HYPERTENSION 2017 MADELEINE DIGGS, SOLE S Ot I25.10 ATHSCL HEART DISEASE OF [place] CORONARY 02/18/2017 EDUARDO MCKENZIE FACC, ALI FACP CCDS Ot 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 02/18/2017 EDUARDO MCKENZIE FACC, ALI FACP CCDS Ot I25.10 ATHSCL HEART DISEASE OF [place] CORONARY 02/18/2017 EDUARDO MCKENZIE FACC, ALI FACP CCDS Ot I25.2 OLD MYOCARDIAL INFARCTION 04/16/2017 KENY KEATING FELLER OPERATOR Ot I10 ESSENTIAL (PRIMARY) HYPERTENSION 04/16/2017 KENY KEATING FELLER OPERATOR Ot I25.10 ATHSCL HEART DISEASE OF [place] CORONARY 04/16/2017 ZURI, KENY FELLER OPERATOR Ot K42.9 UMBILICAL HERNIA WITHOUT OBSTRUCTION OR 04/16/2017 ZURI, KENY FELLER OPERATOR Ot N20.0 CALCULUS OF KIDNEY 04/16/2017 ZURI, KENY FELLER OPERATOR Ot R10.32 LEFT LOWER QUADRANT PAIN 04/16/2017 ZURI, KENY FELLER OPERATOR Ot Z79.02 PROJECT MANAGER INDUSTRIAL (CURRENT) USE OF ANTITHROMBOTI 04/16/2017 ZURI, KENY FELLER OPERATOR Ot Z79.82 INTERMEDIATE (CURRENT) USE OF ASPIRIN 04/16/2017 ZURI, KENY FELLER OPERATOR Ot Z79.899 OTHER INTERMEDIATE (CURRENT) DRUG THERAPY 04/16/2017 ZURI, KENY FELLER OPERATOR Ot Z95.5 PRESENCE OF CORONARY ANGIOPLASTY IMPLANT 04/17/2017 ZURI, KENY FELLER OPERATOR Ot I10 ESSENTIAL (PRIMARY) HYPERTENSION 04/17/2017 ZURI, KENY FELLER OPERATOR Ot I25.10 ATHSCL HEART DISEASE OF [place] CORONARY 04/17/2017 ZURI, KENY FELLER OPERATOR Ot K42.9 UMBILICAL HERNIA WITHOUT OBSTRUCTION OR 04/17/2017 ZURI, KENY FELLER OPERATOR Ot N20.0 CALCULUS OF KIDNEY 04/17/2017 ZURI, KENY FELLER OPERATOR Ot R10.32 LEFT LOWER QUADRANT PAIN 04/17/2017 ZURI, KENY FELLER OPERATOR Ot Z79.02 PROJECT MANAGER INDUSTRIAL (CURRENT) USE OF ANTITHROMBOTI 04/17/2017 ZURI, KENY FELLER OPERATOR Ot Z79.82 INTERMEDIATE (CURRENT) USE OF ASPIRIN 04/17/2017 ZURI, KENY FELLER OPERATOR Ot Z79.899 OTHER INTERMEDIATE (CURRENT) DRUG THERAPY 04/17/2017 ZURI, KENY FELLER OPERATOR Ot Z95.5 PRESENCE OF CORONARY ANGIOPLASTY IMPLANT 09/26/2017 DEONTE OCAMPO MD J Ot E78.00 PURE HYPERCHOLESTEROLEMIA, UNSPECIFIED 09/26/2017 DEONTE OCAMPO MD Ot E86.0 DEHYDRATION 09/26/2017 DEONTE OCAMPO MD Ot I10 ESSENTIAL (PRIMARY) HYPERTENSION 09/26/2017 DEONTE OCAMPO MD Ot I25.10 ATHSCL HEART DISEASE OF [place] CORONARY 09/26/2017 DEONTE OCAMPO MD Ot I25.2 OLD MYOCARDIAL INFARCTION 09/26/2017 DEONTE OCAMPO MD Ot K52.9 NONINFECTIVE GASTROENTERITIS AND COLITIS 09/26/2017 DEONTE OCAMPO MD Ot R19.7 DIARRHEA, UNSPECIFIED 09/26/2017 DEONTE OCAMPO MD Ot Z79.02 INTERMEDIATE (CURRENT) USE OF ANTITHROMBOTI 09/26/2017 DEONTE OCAMPO MD Ot Z79.82 INTERMEDIATE (CURRENT) USE OF ASPIRIN 09/26/2017 DEONTE OCAMPO MD Ot Z87.442 PERSONAL HISTORY OF URINARY CALCULI 09/26/2017 DEONTE OCAMPO MD Ot Z95.5 PRESENCE OF CORONARY ANGIOPLASTY IMPLANT 03/08/2018 CHARLOTTENDER DO, SOLE S Ot E78.5 HYPERLIPIDEMIA, UNSPECIFIED 03/08/2018 ORENDER DO, SOLE S Ot I10 ESSENTIAL (PRIMARY) HYPERTENSION 03/08/2018 CHARLOTTENDER DO, SOLE S Ot R73.9 HYPERGLYCEMIA, UNSPECIFIED 03/08/2018 CHARLOTTENDER DO, SOLE S Ot Z00.00 ENCNTR FOR GENERAL ADULT MEDICAL EXAM W03/17/2018 CHARLOTTENDER DO SOLE S Ot E78.5 HYPERLIPIDEMIA, UNSPECIFIED 03/17/2018 ORENDER DO, SOLE S Ot I10 ESSENTIAL (PRIMARY) HYPERTENSION 03/17/2018 CHARLOTTENDER DO, SOLE S Ot R73.9 HYPERGLYCEMIA, UNSPECIFIED 03/17/2018 ORENDER DO, SOLE S Ot Z00.00 ENCNTR FOR GENERAL ADULT MEDICAL EXAM W04/14/2018 CHARLOTTENDER DO, SOLE S Ot 414.01 CORONARY ATHEROSCLEROSIS OF [place] CORON 04/14/2018 CHARLOTTENDBELLO YANEZ DOQUELINE S Ot 701.2 ACQ ACANTHOSIS NIGRICANS 04/14/2018 CHARLOTTENDRENATA DIGGS SOLE S Ot 780.79 OTH MALAISE FATIGUE 04/14/2018 EDUARDO MCKENZIE FACC, NYA GUZMÁNP CCDS Ot 272.4 HYPERLIPIDEMIA NEC/NOS 04/14/2018 EDUARDO MCKENZIE FACC, NYA FACP CCDS Ot 278.00 OBESITY, NOS 04/14/2018 EDUARDO MCKENZIE FACC, NYA FACP CCDS Ot 414.00 CORON ATHEROSCLER NOS TYPE VESSEL, NATIV 04/14/2018 CHARLOTTENDER DO SOLE S Ot 414.01 CORONARY ATHEROSCLEROSIS OF [place] CORON 04/14/2018 CHARLOTTENDER DO SOLE S Ot 701.2 ACQ ACANTHOSIS NIGRICANS 04/14/2018 KAMINI MENDEZ DOLINE S Ot 780.79 OTH MALAISE FATIGUE 04/14/2018 EDUARDO MCKENZIE FACC, ALI FACP CCDS Ot 272.4 HYPERLIPIDEMIA NEC/NOS 04/14/2018 EDUARDO MCKENZIE FACC, ALI FACP CCDS Ot 278.00 OBESITY, NOS 04/14/2018 EDUARDO MCKENZIE FACC, ALI FACP CCDS Ot 414.00 CORON ATHEROSCLER NOS TYPE VESSEL, NATIV 09/13/2018 BAIMA, JORGE L FELLER OPERATOR Ot 272.4 HYPERLIPIDEMIA NEC/NOS 09/13/2018 BAIMA, JORGE L FELLER OPERATOR Ot 414.00 CORON ATHEROSCLER NOS TYPE VESSEL, NATIV 09/13/2018 EDUARDO MCKENZIE FACC, ALI FACP CCDS Ot 272.4 HYPERLIPIDEMIA NEC/NOS 09/13/2018 EDUARDO MCKENZIE FACC, ALI FACP CCDS Ot 414.00 CORON ATHEROSCLER NOS TYPE VESSEL, NATIV 09/13/2018 EDUARDO MCKENZIE FACC, ALI FACP CCDS Ot 414.8 CHR ISCHEMIC HRT DIS NEC 09/13/2018 EDUARDO MCKENZIE FACC, ALI FACP CCDS Ot 272.4 HYPERLIPIDEMIA NEC/NOS 09/13/2018 EDUARDO MCKENZIE FACC, ALI FACP CCDS Ot 414.00 CORON ATHEROSCLER NOS TYPE VESSEL, NATIV 09/13/2018 EDUARDO MCKENZIE FACC, ALI FACP CCDS Ot 414.8 CHR ISCHEMIC HRT DIS NEC 09/13/2018 BELLO MENDEZ DOQUELINE S Ot 592.0 CALCULUS OF KIDNEY 09/13/2018 BELLO MENDEZ DOQUELINE S Ot 592.1 CALCULUS OF URETER 09/13/2018 MADELEINE DIGGS, SOLE S Ot 592.0 CALCULUS OF KIDNEY 09/13/2018 MADELEINE DIGGS, SOLE S Ot 435.9 TRANS CEREB ISCHEMIA NOS 09/13/2018 BAIMA, JORGE L FELLER OPERATOR Ot 272.4 HYPERLIPIDEMIA NEC/NOS 09/13/2018 BAIMA, JORGE L FELLER OPERATOR Ot 401.9 HYPERTENSION NOS 09/13/2018 BAIMA, JORGE L FELLER OPERATOR Ot 414.00 CORON ATHEROSCLER NOS TYPE VESSEL, NATIV 09/13/2018 KAMINI MENDEZ DOLINE S Ot 250.00 DIAB MRAK WO COMPL, TYPE II OR UNSPEC TY 09/13/2018 KAMINI MENDEZ DOLINE S Ot 780.79 OTH MALAISE FATIGUE 09/13/2018 ORENDER DO, SOLE S Ot R11.2 NAUSEA WITH VOMITING, UNSPECIFIED 09/13/2018 ORENDER DO, SOLE S Ot R74.8 ABNORMAL LEVELS OF OTHER SERUM ENZYMES 09/13/2018 JOSE MCKENZIE, LOREN Cardenas Ot Z01.818 ENCOUNTER FOR OTHER PREPROCEDURAL EXAMIN 09/13/2018 EDUARDO MCKENZIE FACC, ALI FACP CCDS Ot E78.4 OTHER HYPERLIPIDEMIA 09/13/2018 EDUARDO MCKENZIE FACC, ALI FACP CCDS Ot I25.10 ATHSCL HEART DISEASE OF [place] CORONARY 09/13/2018 EDUARDO MCKENZIE FACC, ALI FACP CCDS Ot I25.2 OLD MYOCARDIAL INFARCTION 09/13/2018 EDUARDO MCKENZIE FACC, ALI FACP CCDS Ot R07.89 OTHER CHEST PAIN 09/13/2018 EDUARDO MCKENZIE FACC, ALI FACP CCDS Ot E78.4 OTHER HYPERLIPIDEMIA 09/13/2018 EDUARDO MCKENZIE FACC, ALI FACP CCDS Ot I25.10 ATHSCL HEART DISEASE OF [place] CORONARY 09/13/2018 EDUARDO MCKENZIE FACC, ALI FACP CCDS Ot I25.2 OLD MYOCARDIAL INFARCTION 09/13/2018 EDUARDO MCKENZIE FACC, ALI FACP CCDS Ot R07.89 OTHER CHEST PAIN 09/13/2018 JOSE MCKENZIE, LOREN Cardenas Ot Z01.818 ENCOUNTER FOR OTHER PREPROCEDURAL EXAMIN 09/13/2018 BAIMA, JORGE L FELLER OPERATOR Ot E78.4 OTHER HYPERLIPIDEMIA 09/13/2018 BAIMA, JORGE L FELLER OPERATOR Ot I25.10 ATHSCL HEART DISEASE OF [place] CORONARY 09/13/2018 BAIMA, JORGE L FELLER OPERATOR Ot I25.5 ISCHEMIC CARDIOMYOPATHY 09/13/2018 BAIMA, JORGE L FELLER OPERATOR Ot R07.89 OTHER CHEST PAIN 09/13/2018 ORENDER DO, SOLE S Ot I25.10 ATHSCL HEART DISEASE OF [place] CORONARY 09/13/2018 ORENDER DO, SOLE S Ot R42 DIZZINESS AND GIDDINESS 09/13/2018 ORENDER DO, SOLE S Ot R73.9 HYPERGLYCEMIA, UNSPECIFIED 09/13/2018 ORENDER DO, SOLE S Ot E78.2 MIXED HYPERLIPIDEMIA 09/13/2018 ORENDER DO, SOLE S Ot I10 ESSENTIAL (PRIMARY) HYPERTENSION 09/13/2018 ORENDER DO, SOLE S Ot I25.10 ATHSCL HEART DISEASE OF [place] CORONARY 09/13/2018 EDUARDO MCKENZIE FACC, ALI FACP CCDS Ot 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 09/13/2018 EDUARDO MCKENZIE FACC, ALI FACP CCDS Ot I25.10 ATHSCL HEART DISEASE OF [place] CORONARY 09/13/2018 EDUARDO MCKENZIE FACC, ALI FACP CCDS Ot I25.2 OLD MYOCARDIAL INFARCTION 09/13/2018 ORENDER DO, SOLE S Ot E78.5 HYPERLIPIDEMIA, UNSPECIFIED 09/13/2018 ORENDER DO, SOLE S Ot I10 ESSENTIAL (PRIMARY) HYPERTENSION 09/13/2018 ORENDER DO, SOLE S Ot R73.9 HYPERGLYCEMIA, UNSPECIFIED 09/13/2018 ORENDER DO, SOLE S Ot Z00.00 ENCNTR FOR GENERAL ADULT MEDICAL EXAM W/ 09/28/2018 JORGE DEY FELLER OPERATOR Ot 272.4 HYPERLIPIDEMIA NEC/NOS 09/28/2018 JORGE DEY FELLER OPERATOR Ot 414.00 CORON ATHEROSCLER NOS TYPE VESSEL, NATIV 09/28/2018 EDUARDO MCKENZIE FACC, ALI FACP CCDS Ot 272.4 HYPERLIPIDEMIA NEC/NOS 09/28/2018 EDUARDO MCKENZIE FACC, ALI FACP CCDS Ot 414.00 CORON ATHEROSCLER NOS TYPE VESSEL, NATIV 09/28/2018 EDUARDO MCKENZIE FACC, ALI FACP CCDS Ot 414.8 CHR ISCHEMIC HRT DIS NEC 09/28/2018 EDUARDO MCKENZIE FACC, ALI FACP CCDS Ot 272.4 HYPERLIPIDEMIA NEC/NOS 09/28/2018 EDUARDO MCKENZIE FACC, ALI FACP CCDS Ot 414.00 CORON ATHEROSCLER NOS TYPE VESSEL, NATIV 09/28/2018 EDUARDO MCKENZIE FACC, ALI FACP CCDS Ot 414.8 CHR ISCHEMIC HRT DIS NEC 09/28/2018 ORENDER DO, SOLE S Ot 592.0 CALCULUS OF KIDNEY 09/28/2018 ORENDER DO, SOLE S Ot 592.1 CALCULUS OF URETER 09/28/2018 ORENDER DO, SOLE S Ot 592.0 CALCULUS OF KIDNEY 09/28/2018 ORENDER DO, SOLE S Ot 435.9 TRANS CEREB ISCHEMIA NOS 09/28/2018 YISSEL JORGE L FELLER OPERATOR Ot 272.4 HYPERLIPIDEMIA NEC/NOS 09/28/2018 BAIMA, JORGE L FELLER OPERATOR Ot 401.9 HYPERTENSION NOS 09/28/2018 BAIMA, JORGE L FELLER OPERATOR Ot 414.00 CORON ATHEROSCLER NOS TYPE VESSEL, NATIV 09/28/2018 ORENDER DO, SOLE S Ot 250.00 DIAB MARK WO COMPL, TYPE II OR UNSPEC TY 09/28/2018 ORENDER DO, SOLE S Ot 780.79 OTH MALAISE FATIGUE 09/28/2018 ORENDER DO, SOLE S Ot R11.2 NAUSEA WITH VOMITING, UNSPECIFIED 09/28/2018 ORENDER DO, SOLE S Ot R74.8 ABNORMAL LEVELS OF OTHER SERUM ENZYMES 09/28/2018 JOSE MCKENZIE, LOREN Cardenas Ot Z01.818 ENCOUNTER FOR OTHER PREPROCEDURAL EXAMIN 09/28/2018 EDUARDO MCKENZIE FACC, ALI FACP CCDS Ot E78.4 OTHER HYPERLIPIDEMIA 09/28/2018 EDUARDO MCKENZIE FACC, ALI FACP CCDS Ot I25.10 ATHSCL HEART DISEASE OF [place] CORONARY 09/28/2018 EDUARDO MCKENZIE FACC, ALI FACP CCDS Ot I25.2 OLD MYOCARDIAL INFARCTION 09/28/2018 EDUARDO MCKENZIE FACC, ALI FACP CCDS Ot R07.89 OTHER CHEST PAIN 09/28/2018 EDUARDO MCKENZIE FACC, ALI FACP CCDS Ot E78.4 OTHER HYPERLIPIDEMIA 09/28/2018 EDUARDO MCKENZIE FACC, ALI FACP CCDS Ot I25.10 ATHSCL HEART DISEASE OF [place] CORONARY 09/28/2018 EDUARDO MCKENZIE FACC, ALI FACP CCDS Ot I25.2 OLD MYOCARDIAL INFARCTION 09/28/2018 EDUARDO MCKENZIE FACC, ALI FACP CCDS Ot R07.89 OTHER CHEST PAIN 09/28/2018 JOSE MCKENZIE, LOREN Cardenas Ot Z01.818 ENCOUNTER FOR OTHER PREPROCEDURAL EXAMIN 09/28/2018 CHADMA JORGE L FELLER OPERATOR Ot E78.4 OTHER HYPERLIPIDEMIA 09/28/2018 BAIMA, JORGE L FELLER OPERATOR Ot I25.10 ATHSCL HEART DISEASE OF [place] CORONARY 09/28/2018 YISSEL JORGE L FELLER OPERATOR Ot I25.5 ISCHEMIC CARDIOMYOPATHY 09/28/2018 BAIMA, JORGE L FELLER OPERATOR Ot R07.89 OTHER CHEST PAIN 09/28/2018 ORENDER DO, SOLE S Ot I25.10 ATHSCL HEART DISEASE OF [place] CORONARY 09/28/2018 ORENDER DO, SOLE S Ot R42 DIZZINESS AND GIDDINESS 09/28/2018 ORENDER DO, SOLE S Ot R73.9 HYPERGLYCEMIA, UNSPECIFIED 09/28/2018 ORENDER DO, SOLE S Ot E78.2 MIXED HYPERLIPIDEMIA 09/28/2018 ORENDER DO, SOLE S Ot I10 ESSENTIAL (PRIMARY) HYPERTENSION 09/28/2018 ORENDER DO, SOLE S Ot I25.10 ATHSCL HEART DISEASE OF [place] CORONARY 09/28/2018 EDUARDO MCKENZIE FAC, ALI FACP CCDS Ot 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 09/28/2018 EDUARDO MCKENZIE FACFabiano, ALI FACP CCDS Ot I25.10 ATHSCL HEART DISEASE OF [place] CORONARY 09/28/2018 EDUARDO MCKENZIE FACC, ALI FACP CCDS Ot I25.2 OLD MYOCARDIAL INFARCTION 09/28/2018 ORENDER DO, SOLE S Ot E78.5 HYPERLIPIDEMIA, UNSPECIFIED 09/28/2018 ORENDER DO, SOLE S Ot I10 ESSENTIAL (PRIMARY) HYPERTENSION 09/28/2018 ORENDER DO, SOLE S Ot R73.9 HYPERGLYCEMIA, UNSPECIFIED 09/28/2018 ORENDER DO, SOLE S Ot Z00.00 ENCNTR FOR GENERAL ADULT MEDICAL EXAM W/ 09/29/2018 JORGE DEY L FELLER OPERATOR Ot E78.5 HYPERLIPIDEMIA, UNSPECIFIED 09/29/2018 YISSEL JORGE L FELLER OPERATOR Ot I25.10 ATHSCL HEART DISEASE OF [place] CORONARY 09/29/2018 BAIMA JORGE L FELLER OPERATOR Ot I25.2 OLD MYOCARDIAL INFARCTION 10/01/2018 ORENDER DO, SOLE S Ot E78.2 MIXED HYPERLIPIDEMIA 10/01/2018 ORENDER DO, SOLE S Ot I10 ESSENTIAL (PRIMARY) HYPERTENSION 10/01/2018 ORENDER DO, SOLE S Ot I25.10 ATHSCL HEART DISEASE OF [place] CORONARY 10/01/2018 ORENDER DO, SOLE S Ot R73.9 HYPERGLYCEMIA, UNSPECIFIED 10/14/2018 JORGE DEY FELLER OPERATOR Ot E78.5 HYPERLIPIDEMIA, UNSPECIFIED 10/14/2018 JORGE DEY FELLER OPERATOR Ot I25.10 ATHSCL HEART DISEASE OF [place] CORONARY 10/14/2018 JORGE DEYP Ot I25.2 OLD MYOCARDIAL INFARCTION 10/15/2018 SOLE MENDEZ DO Ot E78.2 MIXED HYPERLIPIDEMIA 10/15/2018 KAMINI MENDEZ DOLINE S Ot I10 ESSENTIAL (PRIMARY) HYPERTENSION 10/15/2018 KAMINI MENDEZ DOLINE S Ot I25.10 ATHSCL HEART DISEASE OF [place] CORONARY 10/15/2018 SOLE MENDEZ DO Ot R73.9 HYPERGLYCEMIA, UNSPECIFIED Procedures Code Description Performed By Performed On 00.40 PROCEDURE ON SINGLE VESSEL 04/23/2014 00.45 INSERTION OF ONE VASCULAR STENT 04/23/2014 00.66 PERCUTANEOUS TRANSLUMINAL CORONARY ANGIO 04/23/2014 36.07 INSRT OF DRUG-ELUTING CORON ARTERY STENT 04/23/2014 37.22 LEFT HEART CARDIAC CATH 04/23/2014 88.53 LT HEART ANGIOCARDIOGRAM 04/23/2014 88.56 CORONAR ARTERIOGR-2 CATH 04/23/2014 Results Test Result Range Hemoglobin A1c - 09/04/16 08:47 Hemoglobin A1c 5.2 % 4.5-6.2 Complete blood count (CBC) with automated white blood cell (WBC) differential - 01/26/17 08:16 Blood leukocytes automated count (number/volume) 6.2 10*3/uL 4.3-11.0 Blood erythrocytes automated count (number/volume) 5.05 10*6/uL 4.35-5.85 Venous blood hemoglobin measurement (mass/volume) 15.3 g/dL 13.3-17.7 Blood hematocrit (volume fraction) 44 % 40-54 Automated erythrocyte mean corpuscular volume 87 [foz_us] 80-99 Automated erythrocyte mean corpuscular hemoglobin (mass per erythrocyte) 30 pg 25-34 Automated erythrocyte mean corpuscular hemoglobin concentration measurement ( mass/volume) 35 g/dL 32-36 Automated erythrocyte distribution width ratio 13.4 % 10.0-14.5 Automated blood platelet count (count/volume) 269 10*3/uL 130-400 Automated blood platelet mean volume measurement 10.2 [foz_us] 7.4-10.4 Automated blood neutrophils/100 leukocytes 50 % 42-75 Automated blood lymphocytes/100 leukocytes 37 % 12-44 Blood monocytes/100 leukocytes 10 % 0-12 Automated blood eosinophils/100 leukocytes 3 % 0-10 Automated blood basophils/100 leukocytes 1 % 0-10 Blood neutrophils automated count (number/volume) 3.1 10*3 1.8-7.8 Blood lymphocytes automated count (number/volume) 2.3 10*3 1.0-4.0 Blood monocytes automated count (number/volume) 0.6 10*3 0.0-1.0 Automated eosinophil count 0.2 10*3/uL 0.0-0.3 Automated blood basophil count (count/volume) 0.1 10*3/uL 0.0-0.1 Comprehensive metabolic panel - 01/26/17 08:16 Serum or plasma sodium measurement (moles/volume) 138 mmol/L 135-145 Serum or plasma potassium measurement (moles/volume) 4.3 mmol/L 3.6-5.0 Serum or plasma chloride measurement (moles/volume) 108 mmol/L 98-107 Carbon dioxide 20 mmol/L 21-32 Serum or plasma anion gap determination (moles/volume) 10 mmol/L 5-14 Serum or plasma urea nitrogen measurement (mass/volume) 17 mg/dL 7-18 Serum or plasma creatinine measurement (mass/volume) 0.87 mg/dL 0.60-1.30 Serum or plasma urea nitrogen/creatinine mass ratio 20 NRG Serum or plasma creatinine measurement with calculation of estimated glomerular filtration rate > NRG Serum or plasma glucose measurement (mass/volume) 103 mg/dL 70-105 Serum or plasma calcium measurement (mass/volume) 9.0 mg/dL 8.5-10.1 Serum or plasma total bilirubin measurement (mass/volume) 0.6 mg/dL 0.1-1.0 Serum or plasma alkaline phosphatase measurement (enzymatic activity/volume) 82 U/L 40-136 Serum or plasma aspartate aminotransferase measurement (enzymatic activity/ volume) 17 U/L 5-34 Serum or plasma alanine aminotransferase measurement (enzymatic activity/volume ) 24 U/L 0-55 Serum or plasma protein measurement (mass/volume) 6.9 g/dL 6.4-8.2 Serum or plasma albumin measurement (mass/volume) 4.2 g/dL 3.2-4.5 Lipid 1996 panel - 01/26/17 08:16 Serum or plasma triglyceride measurement (mass/volume) 106 mg/dL <150 Serum or plasma cholesterol measurement (mass/volume) 158 mg/dL < 200 Serum or plasma cholesterol in HDL measurement (mass/volume) 47 mg/ dL 40-60 Cholesterol in LDL [mass/volume] in serum or plasma by direct assay 90 mg/dL 1-129 Serum or plasma cholesterol in VLDL measurement (mass/volume) 21 mg/ dL 5-40 Complete blood count (CBC) with automated white blood cell (WBC) differential - 04/16/17 15:34 Blood leukocytes automated count (number/volume) 6.7 10*3/uL 4.3-11.0 Blood erythrocytes automated count (number/volume) 4.76 10*6/uL 4.35-5.85 Venous blood hemoglobin measurement (mass/volume) 14.2 g/dL 13.3-17.7 Blood hematocrit (volume fraction) 42 % 40-54 Automated erythrocyte mean corpuscular volume 87 [foz_us] 80-99 Automated erythrocyte mean corpuscular hemoglobin (mass per erythrocyte) 30 pg 25-34 Automated erythrocyte mean corpuscular hemoglobin concentration measurement ( mass/volume) 34 g/dL 32-36 Automated erythrocyte distribution width ratio 13.3 % 10.0-14.5 Automated blood platelet count (count/volume) 261 10*3/uL 130-400 Automated blood platelet mean volume measurement 10.3 [foz_us] 7.4-10.4 Automated blood neutrophils/100 leukocytes 65 % 42-75 Automated blood lymphocytes/100 leukocytes 23 % 12-44 Blood monocytes/100 leukocytes 10 % 0-12 Automated blood eosinophils/100 leukocytes 1 % 0-10 Automated blood basophils/100 leukocytes 1 % 0-10 Blood neutrophils automated count (number/volume) 4.3 10*3 1.8-7.8 Blood lymphocytes automated count (number/volume) 1.5 10*3 1.0-4.0 Blood monocytes automated count (number/volume) 0.7 10*3 0.0-1.0 Automated eosinophil count 0.1 10*3/uL 0.0-0.3 Automated blood basophil count (count/volume) 0.0 10*3/uL 0.0-0.1 Comprehensive metabolic panel - 04/16/17 15:34 Serum or plasma sodium measurement (moles/volume) 139 mmol/L 135-145 Serum or plasma potassium measurement (moles/volume) 3.6 mmol/L 3.6-5.0 Serum or plasma chloride measurement (moles/volume) 107 mmol/L 98-107 Carbon dioxide 25 mmol/L 21-32 Serum or plasma anion gap determination (moles/volume) 7 mmol/L 5-14 Serum or plasma urea nitrogen measurement (mass/volume) 15 mg/dL 7-18 Serum or plasma creatinine measurement (mass/volume) 0.91 mg/dL 0.60-1.30 Serum or plasma urea nitrogen/creatinine mass ratio 16 NRG Serum or plasma creatinine measurement with calculation of estimated glomerular filtration rate > NRG Serum or plasma glucose measurement (mass/volume) 125 mg/dL 70-105 Serum or plasma calcium measurement (mass/volume) 9.4 mg/dL 8.5-10.1 Serum or plasma total bilirubin measurement (mass/volume) 0.3 mg/dL 0.1-1.0 Serum or plasma alkaline phosphatase measurement (enzymatic activity/volume) 71 U/L 40-136 Serum or plasma aspartate aminotransferase measurement (enzymatic activity/ volume) 16 U/L 5-34 Serum or plasma alanine aminotransferase measurement (enzymatic activity/volume ) 20 U/L 0-55 Serum or plasma protein measurement (mass/volume) 7.0 g/dL 6.4-8.2 Serum or plasma albumin measurement (mass/volume) 4.3 g/dL 3.2-4.5 Complete urinalysis with reflex to culture - 04/16/17 15:34 Urine color determination YELLOW NRG Urine clarity determination CLEAR NRG Urine pH measurement by test strip 7 5-9 Specific gravity of urine by test strip 1.010 1.016- 1.022 Urine protein assay by test strip, semi-quantitative NEGATIVE NEGATIVE Urine glucose detection by automated test strip NEGATIVE NEGATIVE Erythrocytes detection in urine sediment by light microscopy NEGATIVE NEGATIVE Urine ketones detection by automated test strip NEGATIVE NEGATIVE Urine nitrite detection by test strip NEGATIVE NEGATIVE Urine total bilirubin detection by test strip NEGATIVE NEGATIVE Urine urobilinogen measurement by automated test strip (mass/volume) NORMAL NORMAL Urine leukocyte esterase detection by dipstick NEGATIVE NEGATIVE Automated urine sediment erythrocyte count by microscopy (number/high power field) NONE NRG Automated urine sediment leukocyte count by microscopy (number/high power field ) NONE NRG Bacteria detection in urine sediment by light microscopy NONE NRG Crystals detection in urine sediment by light microscopy PRESENT NRG Casts detection in urine sediment by light microscopy NONE NRG Mucus detection in urine sediment by light microscopy NEGATIVE NRG Complete urinalysis with reflex to culture NO NRG Amorphous sediment detection in urine sediment by light microscopy FEW LILIBETH URATES NRG Complete blood count (CBC) with automated white blood cell (WBC) differential - 09/26/17 19:00 Blood leukocytes automated count (number/volume) 10.1 10*3/uL 4.3-11.0 Blood erythrocytes automated count (number/volume) 5.24 10*6/uL 4.35-5.85 Venous blood hemoglobin measurement (mass/volume) 15.8 g/dL 13.3-17.7 Blood hematocrit (volume fraction) 46 % 40-54 Automated erythrocyte mean corpuscular volume 87 [foz_us] 80-99 Automated erythrocyte mean corpuscular hemoglobin (mass per erythrocyte) 30 pg 25-34 Automated erythrocyte mean corpuscular hemoglobin concentration measurement ( mass/volume) 35 g/dL 32-36 Automated erythrocyte distribution width ratio 13.3 % 10.0-14.5 Automated blood platelet count (count/volume) 259 10*3/uL 130-400 Automated blood platelet mean volume measurement 10.3 [foz_us] 7.4-10.4 Automated blood neutrophils/100 leukocytes 85 % 42-75 Automated blood lymphocytes/100 leukocytes 7 % 12-44 Blood monocytes/100 leukocytes 7 % 0-12 Automated blood eosinophils/100 leukocytes 1 % 0-10 Automated blood basophils/100 leukocytes 0 % 0-10 Blood neutrophils automated count (number/volume) 8.6 10*3 1.8-7.8 Blood lymphocytes automated count (number/volume) 0.7 10*3 1.0-4.0 Blood monocytes automated count (number/volume) 0.7 10*3 0.0-1.0 Automated eosinophil count 0.1 10*3/uL 0.0-0.3 Automated blood basophil count (count/volume) 0.0 10*3/uL 0.0-0.1 Comprehensive metabolic panel - 09/26/17 19:00 Serum or plasma sodium measurement (moles/volume) 137 mmol/L 135-145 Serum or plasma potassium measurement (moles/volume) 4.0 mmol/L 3.6-5.0 Serum or plasma chloride measurement (moles/volume) 103 mmol/L 98-107 Carbon dioxide 25 mmol/L 21-32 Serum or plasma anion gap determination (moles/volume) 9 mmol/L 5-14 Serum or plasma urea nitrogen measurement (mass/volume) 19 mg/dL 7-18 Serum or plasma creatinine measurement (mass/volume) 0.94 mg/dL 0.60-1.30 Serum or plasma urea nitrogen/creatinine mass ratio 20 NRG Serum or plasma creatinine measurement with calculation of estimated glomerular filtration rate > NRG Serum or plasma glucose measurement (mass/volume) 116 mg/dL 70-105 Serum or plasma calcium measurement (mass/volume) 9.2 mg/dL 8.5-10.1 Serum or plasma total bilirubin measurement (mass/volume) 0.8 mg/dL 0.1-1.0 Serum or plasma alkaline phosphatase measurement (enzymatic activity/volume) 102 U/L 40-136 Serum or plasma aspartate aminotransferase measurement (enzymatic activity/ volume) 19 U/L 5-34 Serum or plasma alanine aminotransferase measurement (enzymatic activity/volume ) 32 U/L 0-55 Serum or plasma protein measurement (mass/volume) 7.5 g/dL 6.4-8.2 Serum or plasma albumin measurement (mass/volume) 4.3 g/dL 3.2-4.5 Magnesium - 09/26/17 19:00 Magnesium 2.0 mg/dL 1.8-2.4 Blood manual differential performed detection - 09/26/17 19:00 Blood monocytes/100 leukocytes 2 % NRG Manual blood segmented neutrophils/100 leukocytes 78 % NRG Blood band neutrophils/100 leukocytes 3 % NRG Manual blood lymphocytes/100 leukocytes 15 % NRG Manual eosinophils/100 leukocytes in nose 2 % NRG Manual blood basophils/100 leukocytes 0 % NRG Blood erythrocyte morphology finding identification NORMAL NRG Serum or plasma troponin i.cardiac measurement (mass/volume) - 09/26/17 19:00 Serum or plasma troponin i.cardiac measurement (mass/volume) < ng/ mL <0.30 Complete blood count (CBC) with automated white blood cell (WBC) differential - 03/04/18 08:20 Blood leukocytes automated count (number/volume) 6.8 10*3/uL 4.3-11.0 Blood erythrocytes automated count (number/volume) 5.05 10*6/uL 4.35-5.85 Venous blood hemoglobin measurement (mass/volume) 15.1 g/dL 13.3-17.7 Blood hematocrit (volume fraction) 44 % 40-54 Automated erythrocyte mean corpuscular volume 86 [foz_us] 80-99 Automated erythrocyte mean corpuscular hemoglobin (mass per erythrocyte) 30 pg 25-34 Automated erythrocyte mean corpuscular hemoglobin concentration measurement ( mass/volume) 35 g/dL 32-36 Automated erythrocyte distribution width ratio 13.8 % 10.0-14.5 Automated blood platelet count (count/volume) 282 10*3/uL 130-400 Automated blood platelet mean volume measurement 10.0 [foz_us] 7.4-10.4 Automated blood neutrophils/100 leukocytes 54 % 42-75 Automated blood lymphocytes/100 leukocytes 32 % 12-44 Blood monocytes/100 leukocytes 11 % 0-12 Automated blood eosinophils/100 leukocytes 3 % 0-10 Automated blood basophils/100 leukocytes 0 % 0-10 Blood neutrophils automated count (number/volume) 3.7 10*3 1.8-7.8 Blood lymphocytes automated count (number/volume) 2.2 10*3 1.0-4.0 Blood monocytes automated count (number/volume) 0.7 10*3 0.0-1.0 Automated eosinophil count 0.2 10*3/uL 0.0-0.3 Automated blood basophil count (count/volume) 0.0 10*3/uL 0.0-0.1 Comprehensive metabolic panel - 03/04/18 08:20 Serum or plasma sodium measurement (moles/volume) 140 mmol/L 135-145 Serum or plasma potassium measurement (moles/volume) 4.3 mmol/L 3.6-5.0 Serum or plasma chloride measurement (moles/volume) 107 mmol/L 98-107 Carbon dioxide 23 mmol/L 21-32 Serum or plasma anion gap determination (moles/volume) 10 mmol/L 5-14 Serum or plasma urea nitrogen measurement (mass/volume) 17 mg/dL 7-18 Serum or plasma creatinine measurement (mass/volume) 0.84 mg/dL 0.60-1.30 Serum or plasma urea nitrogen/creatinine mass ratio 20 NRG Serum or plasma creatinine measurement with calculation of estimated glomerular filtration rate > NRG Serum or plasma glucose measurement (mass/volume) 97 mg/dL 70-105 Serum or plasma calcium measurement (mass/volume) 9.4 mg/dL 8.5-10.1 Serum or plasma total bilirubin measurement (mass/volume) 0.6 mg/dL 0.1-1.0 Serum or plasma alkaline phosphatase measurement (enzymatic activity/volume) 77 U/L 40-136 Serum or plasma aspartate aminotransferase measurement (enzymatic activity/ volume) 26 U/L 5-34 Serum or plasma alanine aminotransferase measurement (enzymatic activity/volume ) 40 U/L 0-55 Serum or plasma protein measurement (mass/volume) 7.4 g/dL 6.4-8.2 Serum or plasma albumin measurement (mass/volume) 4.4 g/dL 3.2-4.5 Lipid 1996 panel - 03/04/18 08:20 Serum or plasma triglyceride measurement (mass/volume) 101 mg/dL <150 Serum or plasma cholesterol measurement (mass/volume) 163 mg/dL < 200 Serum or plasma cholesterol in HDL measurement (mass/volume) 52 mg/ dL 40-60 Cholesterol in LDL [mass/volume] in serum or plasma by direct assay 90 mg/dL 1-129 Serum or plasma cholesterol in VLDL measurement (mass/volume) 20 mg/ dL 5-40 THYROID STIMULATING HORMONE - 03/04/18 08:20 THYROID STIMULATING HORMONE 1.17 u[iU]/mL 0.35-4.94 Hemoglobin A1c - 03/04/18 08:20 Blood hemoglobin A1C measurement (mass/volume) 5.8 % 4.0- 5.6 MEAN BLOOD GLUCOSE 120 % <=126 Prostate specific ag [mass/volume] in serum or plasma - 03/04/18 08:20 Prostate specific ag [mass/volume] in serum or plasma 0.98 % 0.00-4.00 Complete blood count (CBC) with automated white blood cell (WBC) differential - 09/30/18 08:21 Blood leukocytes automated count (number/volume) 6.1 10*3/uL 4.3-11.0 Blood erythrocytes automated count (number/volume) 4.93 10*6/uL 4.35-5.85 Venous blood hemoglobin measurement (mass/volume) 14.9 g/dL 13.3-17.7 Blood hematocrit (volume fraction) 43 % 40-54 Automated erythrocyte mean corpuscular volume 87 [foz_us] 80-99 Automated erythrocyte mean corpuscular hemoglobin (mass per erythrocyte) 30 pg 25-34 Automated erythrocyte mean corpuscular hemoglobin concentration measurement ( mass/volume) 35 g/dL 32-36 Automated erythrocyte distribution width ratio 13.5 % 10.0-14.5 Automated blood platelet count (count/volume) 283 10*3/uL 130-400 Automated blood platelet mean volume measurement 9.7 [foz_us] 7.4-10.4 Automated blood neutrophils/100 leukocytes 51 % 42-75 Automated blood lymphocytes/100 leukocytes 38 % 12-44 Blood monocytes/100 leukocytes 9 % 0-12 Automated blood eosinophils/100 leukocytes 1 % 0-10 Automated blood basophils/100 leukocytes 1 % 0-10 Blood neutrophils automated count (number/volume) 3.1 10*3 1.8-7.8 Blood lymphocytes automated count (number/volume) 2.3 10*3 1.0-4.0 Blood monocytes automated count (number/volume) 0.5 10*3 0.0-1.0 Automated eosinophil count 0.1 10*3/uL 0.0-0.3 Automated blood basophil count (count/volume) 0.0 10*3/uL 0.0-0.1 Comprehensive metabolic panel - 09/30/18 08:21 Serum or plasma sodium measurement (moles/volume) 139 mmol/L 135-145 Serum or plasma potassium measurement (moles/volume) 4.4 mmol/L 3.6-5.0 Serum or plasma chloride measurement (moles/volume) 106 mmol/L 98-107 Carbon dioxide 26 mmol/L 21-32 Serum or plasma anion gap determination (moles/volume) 7 mmol/L 5-14 Serum or plasma urea nitrogen measurement (mass/volume) 15 mg/dL 7-18 Serum or plasma creatinine measurement (mass/volume) 0.86 mg/dL 0.60-1.30 Serum or plasma urea nitrogen/creatinine mass ratio 17 NRG Serum or plasma creatinine measurement with calculation of estimated glomerular filtration rate > NRG Serum or plasma glucose measurement (mass/volume) 101 mg/dL 70-105 Serum or plasma calcium measurement (mass/volume) 9.6 mg/dL 8.5-10.1 Serum or plasma total bilirubin measurement (mass/volume) 0.6 mg/dL 0.1-1.0 Serum or plasma alkaline phosphatase measurement (enzymatic activity/volume) 82 U/L 40-136 Serum or plasma aspartate aminotransferase measurement (enzymatic activity/ volume) 16 U/L 5-34 Serum or plasma alanine aminotransferase measurement (enzymatic activity/volume ) 24 U/L 0-55 Serum or plasma protein measurement (mass/volume) 7.4 g/dL 6.4-8.2 Serum or plasma albumin measurement (mass/volume) 4.5 g/dL 3.2-4.5 CALCIUM CORRECTED 9.2 mg/dL 8.5-10.1 Lipid 1996 panel - 09/30/18 08:21 Serum or plasma triglyceride measurement (mass/volume) 141 mg/dL <150 Serum or plasma cholesterol measurement (mass/volume) 174 mg/dL < 200 Serum or plasma cholesterol in HDL measurement (mass/volume) 53 mg/ dL 40-60 Cholesterol in LDL [mass/volume] in serum or plasma by direct assay 92 mg/dL 1-129 Serum or plasma cholesterol in VLDL measurement (mass/volume) 28 mg/ dL 5-40 Hemoglobin A1c - 09/30/18 08:21 Blood hemoglobin A1C measurement (mass/volume) 5.3 % 4.0- 5.6 MEAN BLOOD GLUCOSE 105 % <=126 Encounters ACCT No. Visit Date/Time Discharge Status Pt. Type Provider Facility Loc./Unit Complaint [id number] 10/28/2018 15:26:00 10/28/2018 23:59:59 CLS Outpatient SOLE MENDEZ DO S [facility] RAD UPPER THORACIC PAIN [id number] 09/30/2018 08:10:00 09/30/2018 23:59:59 CLS Outpatient SOLE MENDEZ DO S [facility] LAB I10,E78.2,I25.10 [id number] 09/28/2018 07:32:00 09/28/2018 23:59:59 CLS Outpatient JORGE DEY [facility] CARD CAD [id number] 03/04/2018 08:05:00 03/04/2018 23:59:59 CLS Outpatient SOLE MENDEZ DO S [facility] LAB HTN,YEARLY LABS, HYPERLIPIDEMIA [id number] 09/26/2017 17:55:00 09/26/2017 20:25:00 DIS Emergency DAMARIS MCKENZIE, DEONTE Pierson [facility] ER HEAD/BACK PAIN,N/V, (PT HAS STENT IN HEART) [id number] 04/16/2017 14:10:00 04/16/2017 16:58:00 DIS Emergency KENY KEATING MALIKA [facility] ER NAUSEA,WEAKNESS,HEAD PAIN [id number] 02/02/2017 14:45:00 02/02/2017 23:59:59 CLS Outpatient EDUARDO MCKENZIE FACC, NYA FACP CCDS [facility] CARD CAD, HYPERLIPIDEMIA [id number] 01/26/2017 08:06:00 01/26/2017 23:59:59 CLS Outpatient SOLE MENDEZ DO [facility] LAB I10,I25.10,E78.2 [id number] 09/04/2016 08:27:00 09/04/2016 23:59:59 CLS Outpatient SOLE MENDEZ DO [facility] RAD CAD,DIZZINESS, CEPHALGIA,HYPERGLYCEMIA [id number] 07/22/2016 08:10:00 07/22/2016 23:59:59 CLS Outpatient JORGE DEY MALIKA [facility] LAB CHEST DISCOMFORT,CAD, HYPERLIPIDEMIA [id number] 02/04/2016 09:47:00 02/04/2016 12:30:00 DIS Outpatient LOREN GARCIA MD [facility] SDC RECTAL BLEEDING [id number] 01/31/2016 08:36:00 01/31/2016 23:59:59 CLS Outpatient LOREN GARCIA MD [facility] PREOP RECTAL BLEEDING [id number] 01/11/2016 08:12:00 01/11/2016 23:59:59 CLS Outpatient EDUARDO MCKENZIE FACC, NYA LANZA CCDS [facility] LAB CAD, HYPERLIPIDEMIA,CHEST DISCOMFORT [id number] 01/08/2016 08:13:00 01/08/2016 23:59:59 CLS Outpatient EDUARDO MCKENZIE FACC, NYA LANZA CCDS [facility] CARD CHEST DISCOMFORT, OLD AL [id number] 11/12/2015 07:18:00 11/12/2015 10:00:00 DIS Outpatient SARIKA GARCIA MDVIER M [facility] SDC EPIGASTRIC PAIN [id number] 11/09/2015 05:47:00 11/09/2015 23:59:59 CLS Outpatient JOSE MCKENZIE, LOREN Cardenas [facility] PREOP EPIGASTRIC PAIN [id number] 10/16/2015 06:56:00 10/16/2015 23:59:59 CLS Outpatient KAMINI MENDEZ DOLINE S [facility] RAD ELEVATED LFT, N/V, [id number] 09/24/2015 11:56:00 09/24/2015 14:17:00 DIS Emergency DENITANELLY Woodson DO [facility] ER WEAK/NAUSEA [id number] 07/11/2015 20:37:00 07/12/2015 00:30:00 DIS Emergency HUI QUACH DO [facility] ER WEAKNESS;HEART RACING [id number] 03/30/2015 09:47:00 03/30/2015 12:48:00 DIS Emergency SERGIO HINTON MD [facility] ER LIGHTHEADED, DIZZY [id number] 03/14/2015 13:55:00 03/14/2015 23:59:59 CLS Outpatient SOLE MENDEZ DO S [facility] LAB FATIGUE,FAMILIAL DM II [id number] 01/03/2015 08:14:00 01/03/2015 23:59:59 CLS Outpatient JORGE DEY [facility] LAB CAD,HYPERLIPIDEMIA, HTN [id number] 09/28/2014 09:34:00 09/28/2014 23:59:59 CLS Outpatient BELLO MENDEZ DOQUELINE S [facility] RAD TIA,HX CAD,FACIAL AND ARM TINGLING [id number] 07/20/2014 15:53:00 07/20/2014 23:59:59 CLS Outpatient BELLO MENDEZ DOQUELINE S [facility] RAD FWUP FROM X RAY ON KIDNEY STONES [id number] 07/12/2014 15:31:00 07/12/2014 23:59:59 CLS Outpatient ORENDSOLE YANEZ DO [facility] RAD HEMATURIA, LEFT ABD PAIN, HX OF KIDNEY STONES [id number] 05/23/2014 13:50:00 05/23/2014 23:59:59 CLS Outpatient EDUARDO MCKENZIE FACC, ALI FACP CCDS [facility] CARD HYPERLIPIDEMIA CAD CARDIOMOPATHEY [id number] 05/22/2014 13:51:00 05/22/2014 23:59:59 CLS Outpatient EDUARDO MCKENZIE FACC, ALI FACP CCDS [facility] LAB CAD, HYPERLIADEMA [id number] 04/24/2014 10:00:00 04/25/2014 16:00:00 DIS Inpatient NIYAH COATES MD [facility] CSD CHEST PAIN [id number] 04/07/2014 14:22:00 04/08/2014 13:15:00 DIS Outpatient EDUARDO MCKENZIE FACC, NYA FACP CCDS [facility] CATH POS STRESS TEST, CAD, HLP [id number] 04/06/2014 08:15:00 04/06/2014 23:59:59 CLS Outpatient JORGE DEY [facility] CARD CAD,HLP [id number] 10/06/2013 08:05:00 10/06/2013 23:59:59 CLS Outpatient EDUARDO MCKENZIE FACC, ALI FACP CCDS [facility] RAD CAD,HLP [id number] 07/29/2013 08:16:00 07/29/2013 23:59:59 CLS Outpatient SLOE MENDEZ DO [facility] LAB CAD,FATIGUE [id number] 11/05/2018 15:00:00 PEN Preadmit EDUARDO MCKENZIE FACC, NYA FACP CCDS [facility] CATH ABN NUCLEAR STRESS TEST,CAD [id number] 04/14/2018 07:48:00 Document Registration 11/17/18 10/18/2018 16:31:28 10/18/2018 23:59:59 CLS Outpatient Sole Mendez.
[2018-11-05] MEDS ORDERED: LIDOCAINE 1% INJ 20 ML 20 ML VIAL ONE (13:03)
[2018-11-05] MEDS ORDERED: HEParin (CATH LAB) 2,000 ML IV ONE (13:03)
[2018-11-05] MEDS ORDERED: NS IV 1000 ML 1,000 ML ONE (13:03)
[2018-11-05 13:27] LABS: HEMOGLOBIN 16.1 G/DL (13.3-17.7); MEAN PLATELET VOLUME 9.7 FL (7.4-10.4); RED BLOOD COUNT 5.34 10^6/uL (4.35-5.85); WHITE BLOOD COUNT 9.8 10^3/uL (4.3-11.0)
[2018-11-05 13:39] LABS: PROTHROMBIN TIME PATIENT 13.1 SEC (12.2-14.7)
[2018-11-05] MEDS ORDERED: NS IV 1000 ML 1,000 ML IV SCH (13:45)
[2018-11-05 13:48] LABS: ALANINE AMINOTRANSFERASE 22 U/L (0-55); ALBUMIN 4.8 GM/DL (3.2-4.5); ALKALINE PHOSPHATASE 87 U/L (40-136); BILIRUBIN,TOTAL 0.7 MG/DL (0.1-1.0); BUN/CREATININE RATIO 19; CALCIUM 9.9 MG/DL (8.5-10.1); CARBON DIOXIDE 25 MMOL/L (21-32); CHLORIDE 101 MMOL/L (98-107); CHOLESTEROL 179 MG/DL (< 200); CREATININE SERUM 0.98 MG/DL (0.60-1.30); GFR ESTIMATED > 60; GLUCOSE 95 MG/DL (70-105); HDL CHOLESTEROL 62 MG/DL (40-60); SODIUM 137 MMOL/L (135-145); TRIGLYCERIDES 76 MG/DL (<150); VLDL CHOLESTEROL 15 MG/DL (5-40)
[2018-11-05] MEDS ORDERED: fentaNYL INJECTION 100 MCG/2 ML AMP ONE (14:00)
[2018-11-05] MEDS ORDERED: MIDAZOLAM 5 MG/5 ML (VERSED) VIAL ONE (14:00)
[2018-11-05] MEDS ORDERED: HEParin 1000 UNIT/ML (10ML VIAL) FOR BOLUS ONE (14:59)
[2018-11-05] MEDS ORDERED: EPTIFIBATIDE BOLUS 20 ML IV ONE (15:00)
[2018-11-05] MEDS ORDERED: CLOPIDOGREL 75 MG (PLAVIX) TABLET ONE (15:21)
[2018-11-05] MEDS ORDERED: ASPIRIN 81 MG CHEW (CHILDREN'S ASA) ONE (15:21)
--- NOTE | 2018-11-05 15:48 | Cardiac Procedure Note-CS/ASA ---
Pre-Procedure Note Pre-Op Procedure Note H&P Reviewed The H&P was reviewed, patient examined and no changes noted. Date H&P Reviewed: Nov 05, 2018 Time H&P Reviewed: 14:55 Conscious Sedation Pre-Proced Time 14:55 ASA Score 3 For ASA 3 and 4: Consider anesthesia and medical clearance. Also, for patients with a history of failed moderate sedation consider anesthesia. Airway Lungs Heart ASA score ASA 1: a normal healthy patient ASA 2: a patient with a mild systemic disease (mid diabetes, controlled hypertension, obesity ASA 3: a patient with a severe systemic disease that limits activity (angina , COPD, prior Myocardial infarction) ASA 4: a patient with an incapacitating disease that is a constant threat to life (CHF, renal failure) ASA 5: a moribund patient not expected to survive 24 hrs. (ruptured aneurysm) ASA 6: a declared brain patient whose organs are being harvested. For emergent operations, add the letter E after the classification Mallampati Classification Grade 2 Sedation Plan Analgesia, Amnesia, Plan communicated to team members, Discussed options with patient/fam, Discussed risks with patient/fam The patient is an appropriate candidate to undergo the planned procedure, sedation, and anesthesia. The patient immediately re-assessed prior to indication. NYA CLARK MD FACP FAC CCDS Nov 05, 2018 15:48
[2018-11-05] MEDS ORDERED: FAMOTIDINE 20 MG (PEPCID) TABLET PO PRN (16:00)
[2018-11-05] MEDS ORDERED: ACETAMINOPHEN 325 MG TABLET PO PRN (16:00)
[2018-11-05] MEDS ORDERED: PATIENT MAY USE OWN MEDS, ALL PO SCH (16:00)
[2018-11-05] MEDS: NS IV 1000 ML 1,000 ML IV SCH (18:16)
--- NOTE | 2018-11-05 19:32 | CARDIAC CATHETERIZATION ---
DATE OF SERVICE: 11/05/2018 CARDIAC CATHETERIZATION REPORT The patient is a 53-year-old man who is known to have coronary artery disease and has previously had multiple percutaneous interventions. A recent myocardial perfusion imaging study was indicative of inferior wall infarction with rolf-infarct ischemia. Cardiac catheterization was recommended and informed consent was obtained. DESCRIPTION OF PROCEDURE: He was brought to the cardiac catheterization laboratory in a fasting state. Informed consent was obtained for cardiac catheterization, possible ad hoc coronary intervention prior to bringing him to the cardiac catheterization lab. We prepared and draped the right groin in the usual sterile fashion. A 1% lidocaine with local anesthesia. Modified Seldinger technique was used to advance a 6-Turkmen sheath in right femoral artery. A 6-Turkmen JL4 catheter was used for left coronary angiography. A 6-Turkmen JR4 catheter was used for right coronary angiography. A 6-Turkmen pigtail catheter was used for left heart catheterization, left ventricular angiography. PERCUTANEOUS INTERVENTION OF THE RIGHT CORONARY ARTERY: Following completion of the diagnostic procedure, we proceeded with percutaneous intervention of the right coronary artery. The patient had 80% focal in-stent restenosis in the distal right coronary artery and approximately 70% de shaila stenosis in the proximal right coronary artery. We gave 6000 units of intravenous heparin and double bolus of Integrilin during the interventional procedure. We used a 6-Turkmen JR4 guide catheter with side holes. We advanced a choice floppy wire across the lesion and the tip was placed in the terminal posterolateral branch. We carried out balloon angioplasty within the distal stented segment of the right coronary artery with Quantum NC 2.75 x 12 mm balloon. This reduced the focal stenosis to 0% residual and flow throughout the vessel is normal. The balloon was removed. We then advanced Hailey 3.0 x 12 mm stent to the proximal lesion of the right coronary artery. This was carefully positioned to cover the entire lesion. The stent was deployed at 20 atmospheres. This reduced the stenosis to 0% residual. The patient tolerated the procedure well. Flow throughout the vessel is normal. Angioplasty equipment was removed. Angiography of the right femoral artery had been carried out at the beginning of the procedure. At the end of the procedure, following sheath removal, Mynx was used to achieve hemostasis. He tolerated the procedure well. HEMODYNAMICS: Left ventricular end-diastolic pressure following coronary angiography is 4 mmHg. There is no significant pressure gradient on pullback across the aortic valve. Ascending aortic pressure was 114/74 with a mean of 78 mmHg. CORONARY ANGIOGRAPHY: Left main coronary artery is short. Left anterior descending artery has a widely patent stent in its mid portion. There is known to be Promus 3.0 x 16 mm stent and is patent without significant restenosis. The first diagonal branch of the left anterior descending artery has 50% to 60% ostial and proximal stenosis. There is a small caliber vessel. The left circumflex artery is nondominant and has mild plaques. The right coronary artery is dominant and has 70% proximal stenosis and 80% focal in-stent restenosis in the distal part of the right coronary artery. In-stent restenosis was treated with balloon angioplasty, which reduced the stenosis to 0% residual. The proximal stenosis was treated with stenting, which reduced the stenosis to 0%. The stent deployed was Hailey 3.0 x 12 mm. LEFT VENTRICULAR ANGIOGRAPHY: Left ventricular angiography was carried out in the right anterior oblique projection. Global left ventricular systolic function is fairly well preserved. Left ventricular ejection fraction is approximately 50%. There is posterobasal akinesis. There is no significant mitral regurgitation seen on this study. CONCLUSIONS: 1. Coronary artery disease as detailed above. The left anterior descending artery has a patent stent in its mid portion that is known to be Promus 3.0 x 16 mm placed several years ago. The right coronary artery had 70% proximal stenosis that was stented with Hailey 3.0 x 12 mm stent. The mid right coronary artery has a patent stent known to be at 3.0 x 16 mm that was placed several years ago. The distal right coronary artery has overlapping stents that are known to be 2.5 x 28, 2.5 x 24, and 2.25 x2, from proximal to distal. There was a focal in-stent re-stenotic segment in this part of the right coronary artery and to this successful balloon angioplasty was carried out with a reduction of stenosis to 0% residual. 2. Posterior basal akinesis. 3. Well preserved global left ventricular systolic function with ejection fraction 50%. 4. Normal left ventricular end-diastolic pressure. DISCUSSION AND RECOMMENDATIONS: His current cardiac regimen is being continued, including dual antiplatelet therapy. He is being hospitalized for overnight observation. Risk factor modification has been reviewed. Job ID: [id number] DocumentID: [id number] Dictated Date: 11/05/2018 15:43:09 Garde Manger Date: 11/05/2018 19:31:08 Dictated By: NYA CLARK MD, MA, FACP, FACC, MTDD
[2018-11-05] MEDS ORDERED: NON-FORMULARY MEDICATION 1 EA EA (Atorvastatin (Lipitor 20MG) 20 MG) PO SCH (21:00)
[2018-11-05] MEDS ORDERED: ATORVASTATIN 20 MG (LIPITOR) TABLET PO SCH (21:00)
[2018-11-06] VITALS: BP 123/77
[2018-11-06 04:00] VITALS: BP 110/73
[2018-11-06] MEDS: NS IV 1000 ML 1,000 ML IV SCH (05:03)
[2018-11-06 06:16] LABS: HEMOGLOBIN 14.9 G/DL (13.3-17.7); MEAN PLATELET VOLUME 9.9 FL (7.4-10.4); RED BLOOD COUNT 4.93 10^6/uL (4.35-5.85); RED CELL DISTRIBUTION WIDTH 13.4 % (10.0-14.5); WHITE BLOOD COUNT 8.1 10^3/uL (4.3-11.0)
[2018-11-06 06:33] LABS: BUN/CREATININE RATIO 16; CARBON DIOXIDE 21 MMOL/L (21-32); CHLORIDE 107 MMOL/L (98-107); CREATININE SERUM 0.85 MG/DL (0.60-1.30); GFR ESTIMATED > 60; GLUCOSE 87 MG/DL (70-105); POTASSIUM 4.1 MMOL/L (3.6-5.0); SODIUM 138 MMOL/L (135-145)
[2018-11-06] MEDS ORDERED: OMEGA 3 (FISH OIL) 1000 MG CAP PO SCH (07:00)
[2018-11-06 08:00] VITALS: BP 113/77
[2018-11-06] MEDS ORDERED: ASPIRIN 81 MG CHEW (CHILDREN'S ASA) PO SCH (09:00)
[2018-11-06] MEDS ORDERED: CLOPIDOGREL 75 MG (PLAVIX) TABLET PO SCH (09:00)
[2018-11-06] MEDS ORDERED: lisINopril 10 MG (PRINIVIL) TABLET PO SCH (09:00)
--- NOTE | 2018-11-06 11:16 | Progress Note-Cardiology ---
Cardiology SOAP Progress Note Subjective: No cp or palp or syncope or shortness of breath or groin discomfort. Wishes to go home Objective: I&O/Vital Signs 11/06/18 11/06/18 11/06/18 11/06/18 00:00 01:00 04:00 07:00 Temp 99.3 99.5 Pulse 74 81 75 73 Resp 20 20 B/P (MAP) 123/77 (92) 110/73 (85) Pulse Ox 97 98 O2 Delivery Room Air Room Air 11/06/18 08:00 Temp 97.2 Pulse 77 Resp 18 B/P (MAP) 113/77 (89) Pulse Ox 97 O2 Delivery Room Air 11/06/18 00:00 Intake Total 1222 ml Output Total 325 ml Balance 897 ml Weight (Pounds): 200 Weight (Ounces): 0.0 Weight (Calculated Kilograms): [id number] Condition: DP/PT pulses palpable Bruising: mild bruising Constitutional: AAO x 3, well-developed, well-nourished Respiratory: No accessory muscle use; lungs clear to percussion, lungs clear to auscultation Cardiovascular: regular rate-rhythm, S1 and S2, systolic murmur (faint KENDY at card base) Gastrointestional: No tender; soft; No guarding, No rebound; audible bowel sounds Extremities: No clubbing, No cyanosis, No significant edema Neurologic/Psychiatric: oriented x 3, grossly intact, power is 5/5 both on sides Skin: No rash on exposed areas, No ulcerations on exposed areas Results/Procedures: Labs Laboratory Tests 11/05/18 13:20: White Blood Count 9.8, Red Blood Count 5.34, Hemoglobin 16.1, Hematocrit 47, Mean Corpuscular Volume 87, Mean Corpuscular Hemoglobin 30, Mean Corpuscular Hemoglobin Concent 35, Red Cell Distribution Width 13.0, Platelet Count 254, Mean Platelet Volume 9.7, Prothrombin Time 13.1, INR Comment 1.0, Activated Partial Thromboplast Time 26, Sodium Level 137, Potassium Level 4.0, Chloride Level 101, Carbon Dioxide Level 25, Anion Gap 11, Blood Urea Nitrogen 19H, Creatinine 0.98, Estimat Glomerular Filtration Rate > 60, BUN/Creatinine Ratio 19, Glucose Level 95, Calcium Level 9.9, Corrected Calcium , Total Bilirubin 0.7 , Aspartate Amino Transf (AST/SGOT) 17, Alanine Aminotransferase (ALT/SGPT) 22, Alkaline Phosphatase 87, Total Protein 8.0, Albumin 4.8H, Triglycerides Level 76 , Cholesterol Level 179, LDL Cholesterol Direct 104, VLDL Cholesterol 15, HDL Cholesterol 62H 11/06/18 05:43: White Blood Count 8.1, Red Blood Count 4.93, Hemoglobin 14.9, Hematocrit 43, Mean Corpuscular Volume 88, Mean Corpuscular Hemoglobin 30, Mean Corpuscular Hemoglobin Concent 35, Red Cell Distribution Width 13.4, Platelet Count 226, Mean Platelet Volume 9.9, Sodium Level 138, Potassium Level 4.1, Chloride Level 107, Carbon Dioxide Level 21, Anion Gap 10, Blood Urea Nitrogen 14, Creatinine 0.85, Estimat Glomerular Filtration Rate > 60, BUN/Creatinine Ratio 16, Glucose Level 87, Calcium Level 9.0 Laboratory Tests 11/05/18 13:20 11/06/18 05:43 A/P: Assessment: CAD. Last card cath on 11/05/18 following abnormal stress test in Sep 2018: The left anterior descending artery has a patent stent in its mid portion that is known to be Promus 3.0 x 16mm placed several years ago. The right coronary artery had 70% proximal stenosis that was stented with Hailey 3.0 x 12 mm stent. The mid right coronary artery has a patent stent known to be at 3.0 x 16 mm that was placed several years ago. The distal right coronary artery has overlapping stents that are known to be 2.5 x 28, 2.5 x 24, and 2.25 x2, from proximal to distal. There was a focal in-stent re-stenotic segment in this part of the right coronary artery and to this successful balloon angioplasty was carried out with a reduction of stenosis to 0% residual Mild ischemic cardiomyopathy. Cath of 11/05/18 showed: Posterior basal akinesis; well preserved global left ventricular systolic function with ejection fraction 50%. normal left ventricular end-diastolic pressure Echo of 02/02/17 shows LVEF 60%, mod AoV sclerosis w/o stenosis, tirvial Ao & Mitral & Tricusp regurg, mild doss dysfunction, PASP 30-35 mmHg Hyperlipidemia, being treated with statin therapy, followed by pcp Carotid u/s from August 2014 showed no evidence of hemodynamically significant stenosis. No significant carotid art disease on carotid u/s of 09/04/16 at [place], [place] Plan: * I reviewed and discussed with him and his the finding of card and interventions undertaken on 11/05/18. Questions answered in detail * Continue therapy for ischemic cm: bb and BRANDYN-inhib * Continue DAPT and statin * We reviewed the rationale for meds and pros and cons of meds and we advised compliance with all meds, in particular DAPT * Risk factor mod reviewed * We recommended close outpt f/u for now NYA CLARK MD FACP FAC CCDS Nov 06, 2018 11:16
--- NOTE | 2018-11-06 11:22 | Discharge Inst-Cardiology ---
Discharge Inst-Cardiac Discharge Medications Continued Medications: Aspirin (Baby Aspirin Chewable Tablet) 81 Mg Chew 81 MG PO DAILY, TAB.CHEW Atorvastatin (Lipitor 20MG) 20 Mg Tablet 20 MG PO HS Clopidogrel Bisulfate (Plavix Tablet) 75 Mg Tab 75 MG PO DAILY, #90 TAB Famotidine (Famotidine) 40 Mg Tablet 40 MG PO DAILY, TAB Lisinopril (Lisinopril) 10 Mg Tablet 10 MG PO DAILY, TAB Metoprolol Succinate (Toprol Xl) 25 Mg Tab 25 MG PO HS Austin-3 Fatty Acids/Fish Oil (Austin 3 1,000 mg Softgel) 1 Each Capsule 1000 MG PO DAILY, NYA AMBROCIO MD FACP FAC CCDS Nov 06, 2018 11:22
--- NOTE | 2018-11-06 11:22 | Discharge Inst-Post CATH ---
Discharge Inst-CATH Post Cardiac Cath D/C Inst Follow Up/Plan F/u with Dr Guido in 1-2 weeks CARDIAC CATH DISCHARGE INSTRUCTIONS *Hold Metformin for 48 hours post heart cath. ACTIVITY * Go Home directly and rest. * Limit activity of the leg (or wrist if it was used) for 7 days including aerobics, swimming, jogging, bicycling, etc. * Restrict stair-climbing for 7 days if possible, if not, climb up with your non -cath leg, then bring together on the same step. * Avoid lifting, pushing, pulling or excessive movement of the affected extremity for 7 days. * Customary sexual activity may be resumed after 2 days-use caution not to use a position that strains or causes pain to the affected extremity. * No driving for 24 hours. * NO SMOKING. * Avoid straining for bowel movements for 7 days. * Gentle walking on level ground is allowed. * Returning to work will depend on the type of procedure and the results. Your doctor will discuss this with you. CALL YOUR DOCTOR FOR ANY OF THE FOLLOWING: *If bleeding from the puncture site occurs- Apply gentle pressure to site with clean cloth and call your doctor or EMS. * If a knot or lump forms under the skin, increases in size, or causes pain. * If bruising appears to be worsening or moving further down your leg instead of disappearing. * Temperature above 101 F. CARE OF YOUR GROIN INCISION; * Bruising or purple discoloration of the skin near the puncture site is common. * You may shower only, no bathtub bathing for 5 days. Be careful to avoid slipping as your leg may feel stiff. * If a closure device was used on your femoral artery, please see the attached guide regarding care of the device and your leg. * Leave the dressing on, until removed by office staff. CARE OF YOUR WRIST INCISION; * Bruising or purple discoloration of the skin near the puncture site is common. * You may shower. * DO NOT submerge wrist. * Leave dressing on, until removed by office staff.. NYA GUIDO MD [facility] CCDS Nov 06, 2018 11:22
[2018-11-06 13:15] VITALS: BP 113/77
== END 2018-11-06 11:40 | disposition home or self-care (01) ==
LOC: CATH 12:49 → ICU 15:46 → 4TH 22:15 → CATH 11-06 11:40
PROVIDERS: ATTEND Internal Medicine Cardiovascular Disease
DX: I25.10 Atherosclerotic heart disease of native coronary artery without angina pectoris (principal); T82.855A Stenosis of coronary artery stent, initial encounter; I25.5 Ischemic cardiomyopathy; E78.5 Hyperlipidemia, unspecified; Z79.02 Long term (current) use of antithrombotics/antiplatelets; Z79.82 Long term (current) use of aspirin; Z79.899 Other long term (current) drug therapy
CPT/HCPCS: 36415; 80048; 80053; 80061; 85027; 85610; 85730; 87081; 93005; 93458

== ENCOUNTER → 2018-11-16 | Outpatient (CLI) | payer OTHER ==
--- NOTE | 2018-11-16 18:04 | Diagnostic Imaging Report ---
INDICATION: Fall and right shoulder pain. TIME OF EXAM: 6:04 PM FINDINGS: Multiple views of bilateral shoulders were obtained. Glenohumeral and acromioclavicular alignment is normal bilaterally. Acromiohumeral space is normal bilaterally. There is some slight lucency in the region of the greater tuberosity of the right proximal humerus. Healing fracture cannot be entirely excluded. No other suspicious abnormalities are identified. IMPRESSION: Questionable lucency in the region of the greater tuberosity on the right, perhaps representing a healing fracture. MRI of the right shoulder would be useful for further evaluation. No other significant abnormality is detected. Dictated by: Dictated on workstation # [id number]
== END ==
LOC: RAD 17:26
PROVIDERS: ATTEND Chiropractor
DX: M25.511 Pain in right shoulder (principal); W19.XXXA Unspecified fall, initial encounter

== ENCOUNTER → 2019-08-16 | Outpatient (CLI) | payer OTHER ==
[2019-08-16 08:38] LABS: ALANINE AMINOTRANSFERASE 25 U/L (0-55); ALBUMIN 4.4 GM/DL (3.2-4.5); ALKALINE PHOSPHATASE 100 U/L (40-136); BILIRUBIN,TOTAL 0.7 MG/DL (0.1-1.0); BUN/CREATININE RATIO 15; CALCIUM 9.3 MG/DL (8.5-10.1); CARBON DIOXIDE 25 MMOL/L (21-32); CHLORIDE 106 MMOL/L (98-107); CHOLESTEROL 160 MG/DL (< 200); CREATININE SERUM 0.85 MG/DL (0.60-1.30); GFR ESTIMATED > 60; GLUCOSE 106 MG/DL (70-105); HDL CHOLESTEROL 44 MG/DL (40-60); POTASSIUM 4.2 MMOL/L (3.6-5.0); SODIUM 138 MMOL/L (135-145); TOTAL PROTEIN 7.4 GM/DL (6.4-8.2); TRIGLYCERIDES 200 MG/DL (<150); VLDL CHOLESTEROL 40 MG/DL (5-40)
== END ==
LOC: LAB 08:03
PROVIDERS: ATTEND Nurse Practitioner Family
DX: E78.5 Hyperlipidemia, unspecified (principal); I25.10 Atherosclerotic heart disease of native coronary artery without angina pectoris
CPT/HCPCS: 36415; 80053; 80061

== ENCOUNTER → 2020-06-18 | Outpatient (CLI) | payer BC, OTHER ==
[2020-06-18 08:24] LABS: BASOPHILS % (AUTO) 1 % (0-10); EOSINOPHILS # (AUTO) 0.2 10^3/uL (0.0-0.3); EOSINOPHILS % (AUTO) 3 % (0-10); HEMATOCRIT 43 % (40-54); HEMOGLOBIN 14.9 G/DL (13.3-17.7); LYMPHOCYTES # (AUTO) 2.6 X 10^3 (1.0-4.0); LYMPHOCYTES % (AUTO) 33 % (12-44); MEAN CORPUSCULAR HEMOGLOBIN 31 PG (25-34); MEAN CORPUSCULAR HGB CONC 35 G/DL (32-36); MEAN CORPUSCULAR VOLUME 88 FL (80-99); MEAN PLATELET VOLUME 9.9 FL (7.4-10.4); MONOCYTES # (AUTO) 0.8 X 10^3 (0.0-1.0); MONOCYTES % (AUTO) 9 % (0-12); NEUTROPHILS # (AUTO) 4.3 X 10^3 (1.8-7.8); NEUTROPHILS % (AUTO) 55 % (42-75); PLATELET COUNT 255 10^3/uL (130-400)
[2020-06-18 08:34] LABS: CHLORIDE 109 MMOL/L (98-107); POTASSIUM 4.3 MMOL/L (3.6-5.0); SODIUM 139 MMOL/L (135-145)
[2020-06-18 08:35] LABS: CALCIUM 8.8 MG/DL (8.5-10.1)
[2020-06-18 08:36] LABS: TOTAL PROTEIN 6.8 GM/DL (6.4-8.2); TRIGLYCERIDES 172 MG/DL (<150); VLDL CHOLESTEROL 34 MG/DL (5-40)
[2020-06-18 08:37] LABS: CARBON DIOXIDE 20 MMOL/L (21-32); GLUCOSE 111 MG/DL (70-105)
[2020-06-18 08:38] LABS: BILIRUBIN,TOTAL 0.6 MG/DL (0.1-1.0)
[2020-06-18 08:40] LABS: ALKALINE PHOSPHATASE 81 U/L (40-136); GFR ESTIMATED > 60
[2020-06-18 08:41] LABS: BUN/CREATININE RATIO 21; CHOLESTEROL 143 MG/DL (< 200)
[2020-06-18 08:42] LABS: HDL CHOLESTEROL 49 MG/DL (40-60)
[2020-06-18 08:43] LABS: ALANINE AMINOTRANSFERASE 30 U/L (0-55)
== END ==
LOC: LAB 08:04
PROVIDERS: ATTEND Family Medicine
DX: Z00.00 Encounter for general adult medical examination without abnormal findings (principal); I10 Essential (primary) hypertension; E78.2 Mixed hyperlipidemia; I25.10 Atherosclerotic heart disease of native coronary artery without angina pectoris; Z12.5 Encounter for screening for malignant neoplasm of prostate
CPT/HCPCS: 36415; 80053; 80061; 84153; 84443; 85025

== ENCOUNTER → 2021-01-11 | Outpatient (CLI) | payer BC ==
[~2021-01-11] MED LIST changes: +ASPI-1238 PO; +ATOR40TA70 PO; +CLOP75TA28 PO; +LISI10TA25 PO; +METO50TA7 PO
[2021-01-11 07:45] LABS: BASOPHILS % (AUTO) 1 % (0-10); EOSINOPHILS # (AUTO) 0.1 10^3/uL (0.0-0.3); EOSINOPHILS % (AUTO) 2 % (0-10); HEMATOCRIT 45 % (40-54); HEMOGLOBIN 15.2 g/dL (13.3-17.7); LYMPHOCYTES # (AUTO) 2.4 10^3/uL (1.0-4.0); LYMPHOCYTES % (AUTO) 35 % (12-44); MEAN CORPUSCULAR HEMOGLOBIN 31 pg (25-34); MEAN CORPUSCULAR HGB CONC 34 g/dL (32-36); MEAN CORPUSCULAR VOLUME 90 fL (80-99); MEAN PLATELET VOLUME 9.7 fL (9.0-12.2); MONOCYTES # (AUTO) 0.6 10^3/uL (0.0-1.0); MONOCYTES % (AUTO) 9 % (0-12); NEUTROPHILS # (AUTO) 3.6 10^3/uL (1.8-7.8); NEUTROPHILS % (AUTO) 54 % (42-75); PLATELET COUNT 261 10^3/uL (130-400); WHITE BLOOD COUNT 6.7 10^3/uL (4.3-11.0)
[2021-01-11 08:06] LABS: ALANINE AMINOTRANSFERASE 23 U/L (0-55); ALBUMIN 4.2 GM/DL (3.2-4.5); ALKALINE PHOSPHATASE 76 U/L (40-136); BILIRUBIN,TOTAL 0.7 MG/DL (0.1-1.0); BUN/CREATININE RATIO 19; CALCIUM 9.3 MG/DL (8.5-10.1); CARBON DIOXIDE 21 MMOL/L (21-32); CHLORIDE 107 MMOL/L (98-107); CHOLESTEROL 144 MG/DL (< 200); CREATININE SERUM 0.85 MG/DL (0.60-1.30); GFR ESTIMATED > 60; GLUCOSE 103 MG/DL (70-105); HDL CHOLESTEROL 52 MG/DL (40-60); POTASSIUM 4.1 MMOL/L (3.6-5.0); SODIUM 140 MMOL/L (135-145); TRIGLYCERIDES 91 MG/DL (<150); VLDL CHOLESTEROL 18 MG/DL (5-40)
== END ==
LOC: LAB 07:25
PROVIDERS: ATTEND Family Medicine
DX: E78.5 Hyperlipidemia, unspecified (principal); I25.10 Atherosclerotic heart disease of native coronary artery without angina pectoris; I10 Essential (primary) hypertension; K62.5 Hemorrhage of anus and rectum; R73.9 Hyperglycemia, unspecified
CPT/HCPCS: 36415; 80053; 80061; 83036; 85025

== ENCOUNTER 2021-09-02 21:33 | Observation (INO) | payer BC ==
[~2021-09-02] VITALS: Ht 165.1 cm; Wt 86.5 kg
--- NOTE | 2021-09-02 22:43 | ED General ---
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 STILL HAS A SLIGHT ACHE TO THE BACK OF HIS HEAD BUT OTHER SYMPTOMS ARE GONE. 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 JOB IS FAIRLY SEDATE FAR ACTIVITY. STATES HE FELT FINE ALL DAY HAS DRANK AND ATE USUAL TODAY NO SHORTNESS OF BREATH NO CHEST PAIN NO PALPITATIONS NO DEFIBRILLATOR DISCHARGE NO SWEATS HAD SLIGHT NAUSEA, NO VOMITING. NO ABDOMINAL PAIN NO FEVER OR RECENT ILLNESS NO VISION CHANGES NO PARESTHESIAS OR MOTOR DEFICITS NO SWELLING IN LEGS/ FEET PT HAS AN ICD IN PLACE SINCE JANUARY FOR V-TACH, AND PT HAD A CARDIAC ABLATION DONE 08/29/21 AT [facility] FOR V-TACH. THERE HAVE BEEN NO CHANGES IN MEDICATIONS--HAS BEEN ON SAME MEDICATIONS AND SAME DOSES FOR A FEW MONTHS, AND PT HAS TAKEN ALL DAILY MEDICATIONS TODAY, WITH NO MISSED DOSES OF MEDICATIONS PT IS ON ASPIRIN, PLAVIX AND ELIQUIS, WELL TOPROL XL, SOTALOL AND LISINOPRIL. PT STATES THE EPISODE HE HAD SALOMÓN DID NOT FEEL LIKE WHEN HE HAD V-TACH OR WITH HIS PRIOR VT'S. NO PRIOR HISTORY OF ANY EPISODES LIKE HE HAD SALOMÓN PT HAS HAD BOTH COVID-19 VACCINES--LAST ONE 03/19/21 PT DOES NOT SMOKE, OCCASIONAL ALCOHOL USE, AND NO DRUG USE. PCP: DR. SALVADOR REGISTRAR NURSES' REGISTRY: DR. CLARK OYSTER GRADER: DR. MARCANO AT [facility]. Allergies and Home Medications Allergies Coded Allergies: No Known Drug Allergies (Verified , 11/05/18) Patient Home Medication List Home Medication List Reviewed: Yes Aspirin (Aspirin EC) 81 Mg Tablet.dr, 81 MG PO DAILY, (Reported) Entered as Reported by: RENATO SR on 01/11/21 1502 Atorvastatin Calcium (Atorvastatin Calcium) 40 Mg Tablet, 40 MG PO 1500, (Reported) Entered as Reported by: RENATO SR on 01/11/21 1502 Clopidogrel Bisulfate (Clopidogrel) 75 Mg Tablet, 75 MG PO DAILY, (Reported) Entered as Reported by: RENATO SR on 01/11/21 1502 Famotidine (Famotidine) 40 Mg Tablet, 40 MG PO DAILY, (Reported) Entered as Reported by: LICHA MENDEZ on 01/31/16 161 Lisinopril (Lisinopril) 10 Mg Tablet, 10 MG PO DAILY, (Reported) Entered as Reported by: RENATO SR on 01/11/21 1502 Metoprolol Succinate (Metoprolol Succinate) 50 Mg Tab.er.24h, 50 MG PO 1500, (Reported) Entered as Reported by: RENATO SR on 01/11/21 1502 Review of Systems Review of Systems Constitutional: see HPI; No diaphoresis; dizziness EENTM: no symptoms reported Respiratory: no symptoms reported; No cough, No short of breath Cardiovascular: see HPI; No chest pain, No edema, No palpitations, No syncope Gastrointestinal: see HPI; No abdominal pain, No diarrhea, No loss of appetite; nausea; No vomiting Genitourinary: no symptoms reported Musculoskeletal: no symptoms reported Skin: no symptoms reported Psychiatric/Neurological: See HPI, Headache; Denies Numbness, Denies Paresthesia, Denies Seizure, Denies Tingling, Denies Weakness Hematologic/Lymphatic: No Symptoms Reported Immunological/Allergic: no symptoms reported Past Nypzajo-Fymgvw-Gejwir Hx Patient Social History Tobacco Use?: No Smoking Status: Never a Smoker Smokeless Tobacco Frequency: Never a User Use of E-Cig and/or Vaping dev: No Substance use?: No Alcohol Use?: Yes Alcohol Frequency: Couple times a week Immunizations Up To Date Tetanus Booster (TDap): Unknown Second COVID19 Vaccination Michael: 03/19/21 Past Medical History Surgery/Hospitalization HX: -CARDIAC CATHS WITH STENTS--LAST ONE HERE 01/12/[address] EDUARDO: CONCLUSIONS: 1. Coronary artery disease, mild to moderate, diffuse. The left anterior descending artery has a patent stent in its mid portion that is known to be Promus 3.0 x 16 mm and that exhibits approximately 40% to 50% stenosis distal to the stent with a fractional flow reserve of approximately 0.84, which is hemodynamically nonsignificant. The right coronary artery has a Hailey 3.0 x 12 mm stent in its proximal portion, a 3.0 x 16 mm stent in its mid portion, and overlapping 2.5 x 28, 2.5 x 24 and 2.25 x 12 mm stent in its distal portion. Stents are patent. 2. Mild impairment of global left ventricular systolic function with ejection fraction of 45 to 50%. 3. Localized inferior akinesis. 4. Normal left ventricular end-diastolic pressure. DISCUSSION AND RECOMMENDATIONS: We are continuing therapy with beta blockers, BRANDYN inhibitors, and antiplatelet medications. We have spoken with Dr. Marcano of the electrophysiology service in [place]. Dr. Marcano will perform ventricular stimulation studies as an outpatient. All of this was discussed in detail with the patient and his . -CARDIAC ABLATION FOR V-TACH 08/29/[address] MARCANO AT [facility]. -INGUINAL HERNIA REPAIR -KIDNEY STONE REMOVAL Surgeries: Yes (KIDNEY STONE REMOVAL, CARDIAC CATH/STENT, ING HERNIA) Abdominal, Cardiac, Coronary Stent, Renal Respiratory: No Currently Using CPAP: No Currently Using BIPAP: No Cardiac: Yes (VT X 2; STENTS X 2;V-TACH WITH ABLATION;) Atrial Fibrillation, Coronary Artery Disease, Heart Attack, High Cholesterol, Hypertension Neurological: No Reproductive Disorders: No Genitourinary: Yes Kidney Stones Gastrointestinal: Yes (INGUINAL HERNIA REPAIR) Abdominal Hernia Musculoskeletal: No Endocrine: No HEENT: No Cancer: No Psychosocial: No Integumentary: No Blood Disorders: No Family Medical History Family history: Cardiovascular disease 19 FATHER, Onset:Unknown Physical Exam Vital Signs Vital Signs - First Documented 09/02/21 22:28 Temp 35.9 Pulse 61 Resp 18 B/P (MAP) 138/90 (106) Pulse Ox 100 O2 Delivery Room Air Capillary Refill : Height, Weight, BMI Height: 5'7.00" Weight: 200lbs. 0.0oz. 90.471585ub; 28.40 BMI Method:Estimated General Appearance: No Apparent Distress, WD/WN, Other (DOES NOT APPEAR ILL OR TO BE IN ANY DISCOMFORT OR DISTRESS. 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 Norm as Tested Skin: Normal Color (PT IS ), Warm/Dry Progress/Results/Core Measures Suspected Sepsis SIRS Temperature: Pulse: Respiratory Rate: Laboratory Tests 09/02/21 22:38: White Blood Count 8.3 Blood Pressure / Mean: Laboratory Tests 09/02/21 22:38: Creatinine 0.87, INR Comment 1.7H, Platelet Count 248, Total Bilirubin 0.4 Results/Orders Lab Results Laboratory Tests Test 09/02/21 22:38 09/02/21 23:08 Range/Units White Blood Count 8.3 4.3-11.0 10^3/uL Red Blood Count 4.54 4.30-5.52 10^6/uL Hemoglobin 13.9 13.3-17.7 g/dL Hematocrit 41 40-54 % Mean Corpuscular Volume 90 80-99 fL Mean Corpuscular Hemoglobin 31 25-34 pg Mean Corpuscular Hemoglobin Concent 34 32-36 g/dL Red Cell Distribution Width 13.3 10.0-14.5 % Platelet Count 248 130-400 10^3/uL Mean Platelet Volume 10.3 9.0-12.2 fL Immature Granulocyte % (Auto) 0 % Neutrophils (%) (Auto) 57 42-75 % Lymphocytes (%) (Auto) 29 12-44 % Monocytes (%) (Auto) 12 0-12 % Eosinophils (%) (Auto) 2 0-10 % Basophils (%) (Auto) 1 0-10 % Neutrophils # (Auto) 4.7 1.8-7.8 10^3/uL Lymphocytes # (Auto) 2.4 1.0-4.0 10^3/uL Monocytes # (Auto) 1.0 0.0-1.0 10^3/uL Eosinophils # (Auto) 0.1 0.0-0.3 10^3/uL Basophils # (Auto) 0.0 0.0-0.1 10^3/uL Immature Granulocyte # (Auto) 0.0 0.0-0.1 10^3/uL Prothrombin Time 20.3 H 12.2-14.7 SEC INR Comment 1.7 H 0.8-1.4 Activated Partial Thromboplast Time 39 H 24-35 SEC Sodium Level 138 135-145 MMOL/L Potassium Level 3.5 L 3.6-5.0 MMOL/L Chloride Level 103 98-107 MMOL/L Carbon Dioxide Level 24 21-32 MMOL/L Anion Gap 11 5-14 MMOL/L Blood Urea Nitrogen 19 H 7-18 MG/DL Creatinine 0.87 0.60-1.30 MG/DL Estimat Glomerular Filtration Rate 91 BUN/Creatinine Ratio 22 Glucose Level 129 H 70-105 MG/DL Calcium Level 10.0 8.5-10.1 MG/DL Corrected Calcium 9.9 8.5-10.1 MG/DL Magnesium Level 2.2 1.6-2.4 MG/DL Total Bilirubin 0.4 0.1-1.0 MG/DL Aspartate Amino Transf (AST/SGOT) 19 5-34 U/L Alanine Aminotransferase (ALT/SGPT) 28 0-55 U/L Alkaline Phosphatase 108 40-136 U/L Total Creatine Kinase 105 30-200 U/L Creatine Kinase MB 1.3 <6.6 NG/ML Myoglobin 37.3 10.0-92.0 NG/ML Troponin I 0.583 *H <0.028 NG/ML B-Type Natriuretic Peptide 44.5 <100.0 PG/ML Total Protein 7.3 6.4-8.2 GM/DL Albumin 4.1 3.2-4.5 GM/DL Urine Color YELLOW Urine Clarity CLEAR Urine pH 7.0 5-9 Urine Specific [place] <=1.005 1.016-1.022 Urine Protein NEGATIVE NEGATIVE Urine Glucose (UA) NEGATIVE NEGATIVE Urine Ketones NEGATIVE NEGATIVE Urine Nitrite NEGATIVE NEGATIVE Urine Bilirubin NEGATIVE NEGATIVE Urine Urobilinogen 0.2 < = 1.0 MG/DL Urine Leukocyte Esterase NEGATIVE NEGATIVE Urine RBC (Auto) 2+ H NEGATIVE Urine RBC NONE /HPF Urine WBC NONE /HPF Urine Squamous Epithelial Cells 0-2 /HPF Urine Crystals NONE /LPF Urine Bacteria NEGATIVE /HPF Urine Casts NONE /LPF Urine Mucus NEGATIVE /LPF Urine Culture Indicated NO My Orders Orders - NELLY BARGER DO Ed Iv/Invasive Line Start (09/02/21 22:39) Ekg Tracing (09/02/21 22:39) Monitor-Rhythm Ecg Trace Only (09/02/21 22:39) Ct Head Wo-R/O Stroke (09/02/21 22:39) Chest 1 View, Ap/Pa Only (09/02/21 22:39) BNP (09/02/21 22:39) Cbc With Automated Diff (09/02/21 22:39) Comprehensive Metabolic Panel (09/02/21 22:39) Creatine Kinase (09/02/21 22:39) Creatine Kinase Mb (09/02/21 22:39) Magnesium (09/02/21 22:39) Protime With Inr (09/02/21 22:39) Partial Thromboplastin Time (09/02/21 22:39) Ua Culture If Indicated (09/02/21 22:39) Myoglobin Serum (09/02/21 22:39) Troponin I (09/02/21 22:39) Ed Iv/Invasive Line Start (09/02/21 22:39) Lactated Ringers (Lr 1000 Ml Iv Solution (09/02/21 22:45) Orthostatic Vital Signs (Adult (09/02/21 23:08) Medications Given in ED Current Medications Medications Dose Ordered Sig/Ramírez Route Start Time Stop Time Status Last Admin Dose Admin Lactated Ringer's 1,000 ml @ 0 mls/hr Q0M ONCE IV 09/02/21 22:45 09/02/21 22:46 DC 09/02/21 23:29 0 MLS/HR Vital Signs/I&O 09/02/21 09/02/21 22:28 23:27 Temp 35.9 Pulse 61 61 60 60 Resp 18 B/P (MAP) 138/90 (106) 131/93 (106) 138/88 (105) 135/98 (110) Pulse Ox 100 O2 Delivery Room Air Capillary Refill : Progress Note : Progress Note AROUND [id number]---PT WAS NOTED TO HAVE MULTIPLE EPISODES OF LONG SINUS PAUSES, AND PT WAS SYMPTOMATIC--FEELING LIKE HE WAS GOING TO PASS OUT. PT STATES THIS IS HOW HE WAS FEELING AT HOME, WHEN THIS OCCURS. UNABLE TO CAPTURE THESE ON EKG OR ON TELEMETRY RECORDING. BP AND OTHER VITALS REMAINED STABLE FOR ENTIRE ER STAY ECG Initial ECG Impression Date: Sep 02, 2021 Initial ECG Impression Time: 22:34 Initial ECG Rate: 62 Initial ECG Rhythm: Normal Sinus (IVCD) Initial ECG Comparisson: Changed (FROM 12/2020--NOW WITH IVCD) Diagnostic Imaging Comments CXR--NO ACUTE PROCESS, PENDING RADIOLOGIST REVIEW Reviewed: Reviewed by Me Departure Communication (Admissions) 0870--SPOKE WITH DR. CLARK. ACCEPTS PT FOR ADMIT. ADVISES TO HOLD ASPIRIN AND CONTINUE ALL OTHER MEDICATIONS. Impression Primary Impression: NEAR-SYNCOPAL EPISODES Additional Impressions: Abnormal EKG Elevated troponin RECENT CARDIAC ABLATION FOR VENTRICULAR TACHYCARDIA ICD (implantable cardioverter-defibrillator) in place HX OF CAD AND VT WITH STENTS SINUS PAUSES SUSPECTED INTERMITTENT HEART BLOCK Disposition: ADMITTED INPATIENT Condition: Stable Admissions Decision to Admit Reason: Admit from ER (General) Decision to Admit/Date: Sep 02, 2021 Time/Decision to Admit Time: 23:40 Departure-Patient Inst. Referrals: DIANA SALVADOR DO (PCP/Family) Primary Care Physician NELLY BARGER DO Sep 02, 2021 22:43
[2021-09-02] MEDS ORDERED: LACTATED RINGERS 1,000 ML IV ONE (22:45)
[2021-09-02 22:50] LABS: BASOPHILS % (AUTO) 1 % (0-10); EOSINOPHILS # (AUTO) 0.1 10^3/uL (0.0-0.3); EOSINOPHILS % (AUTO) 2 % (0-10); HEMATOCRIT 41 % (40-54); HEMOGLOBIN 13.9 g/dL (13.3-17.7); LYMPHOCYTES # (AUTO) 2.4 10^3/uL (1.0-4.0); LYMPHOCYTES % (AUTO) 29 % (12-44); MEAN CORPUSCULAR HEMOGLOBIN 31 pg (25-34); MEAN CORPUSCULAR HGB CONC 34 g/dL (32-36); MEAN CORPUSCULAR VOLUME 90 fL (80-99); MEAN PLATELET VOLUME 10.3 fL (9.0-12.2); MONOCYTES % (AUTO) 12 % (0-12); NEUTROPHILS # (AUTO) 4.7 10^3/uL (1.8-7.8); NEUTROPHILS % (AUTO) 57 % (42-75); PLATELET COUNT 248 10^3/uL (130-400); WHITE BLOOD COUNT 8.3 10^3/uL (4.3-11.0)
[2021-09-02 23:03] LABS: ALBUMIN 4.1 GM/DL (3.2-4.5); INR 1.7 (0.8-1.4); POTASSIUM 3.5 MMOL/L (3.6-5.0); PROTHROMBIN TIME PATIENT 20.3 SEC (12.2-14.7)
[2021-09-02 23:05] LABS: TOTAL PROTEIN 7.3 GM/DL (6.4-8.2)
[2021-09-02 23:07] LABS: BILIRUBIN,TOTAL 0.4 MG/DL (0.1-1.0)
[2021-09-02 23:09] LABS: CREATININE SERUM 0.87 MG/DL (0.60-1.30)
[2021-09-02 23:12] LABS: MAGNESIUM 2.2 MG/DL (1.6-2.4)
[2021-09-02 23:13] LABS: BILIRUBIN,URINE NEGATIVE (NEGATIVE); CLARITY,URINE CLEAR; COLOR,URINE YELLOW; GLUCOSE, URINE (UA) NEGATIVE (NEGATIVE); KETONES,URINE NEGATIVE (NEGATIVE); LEUKOCYTE ESTERASE ,URINE NEGATIVE (NEGATIVE); NITRITE,URINE NEGATIVE (NEGATIVE); PROTEIN,URINE NEGATIVE (NEGATIVE)
[2021-09-02 23:19] LABS: CREATINE KINASE MB 1.3 NG/ML (<6.6)
[2021-09-02 23:27] VITALS: BP_SYST 131; BP_SYST 135; BP_SYST 138; BP_DIAS 88; BP_DIAS 93; BP_DIAS 98
[2021-09-02 23:39] LABS: BACTERIA,URINE NEGATIVE /HPF; SQUAMOUS EPITHELIAL CELL,UR 0-2 /HPF
--- NOTE | 2021-09-02 23:54 | Diagnostic Imaging Report ---
INDICATION: Near syncope. Compared 07/11/2015 FINDINGS: Pacemaker device stable. The lungs clear. No failure, effusion or pneumothorax. No change from priors. IMPRESSION: No acute appearing abnormality Dictated by: Dictated on workstation # [id number]
--- NOTE | 2021-09-02 23:55 | Diagnostic Imaging Report ---
PROCEDURE: CT head wo r/o stroke. TECHNIQUE: Multiple contiguous axial images were obtained through the brain without the use of intravenous contrast. Auto Exposure Controls were utilized during the CT exam to meet ALARA standards for radiation dose reduction. INDICATION: Presyncope. FINDINGS: There is no hemorrhage, hydrocephalus, edema, mass, mass effect or evidence for elevated intracerebral pressures. An incidental cavum septum pellucidum as a ventricular variant present. No sulcal effacement. No loss of the johnson-white matter differentiations. No evidence for an elevation of the intracranial pressures. There is no hemorrhage. Orbits, sinuses, and calvarium appeared nonacute. IMPRESSION: No hemorrhage, edema, hydrocephalus or acute abnormalities identified. Dictated by: Dictated on workstation # [id number]
[2021-09-03] MEDS ORDERED: NITROGLYCERIN 0.4 MG SL TABS BTL 25'S SL PRN ×2 (03:00)
[2021-09-03] MEDS ORDERED: CATHETER FLUSH 10 ML SYR IV PRN (03:00)
[2021-09-03] MEDS ORDERED: ONDANSETRON 4 MG/2 ML (SDV) Z0FRAN IVP PRN (03:00)
[2021-09-03] MEDS ORDERED: ONDANSETRON 4 MG/2 ML (SDV) Z0FRAN IV PRN (03:00)
[2021-09-03] MEDS: CATHETER FLUSH 10 ML SYR IV SCH ×3 (04:50→21:16)
[2021-09-03 06:23] LABS: TRIGLYCERIDES 99 MG/DL (<150); VLDL CHOLESTEROL 20 MG/DL (5-40)
[2021-09-03 06:28] LABS: CHOLESTEROL 126 MG/DL (< 200); HDL CHOLESTEROL 37 MG/DL (40-60)
[2021-09-03] MEDS ORDERED: FLU QUADRIvalent (3YOA+) 60 mcg/0.5 ml 2021-22(AFLURIA) IM ONE (07:00)
--- NOTE | 2021-09-03 07:53 | Consultation-Cardiology ---
HPI-Cardiology Cardiology Consultation: Date of Consultation 09/03/21 Time Seen by a Provider: 08:30 Date of Admission 09-02-21 Attending Physician Silver Guido MD [facility] Admitting Physician Sole Mendez DO Consulting Physician Silver Guido MD HPI: Chief Complaint: Near syncope Mr. Frankel is a 56 yr old male admitted to [facility] from the ED with c/o near syncope. He reports he had ablation by Dr. Marcano on Thursday last week. He reports on Thursday evening he had an episode at the time he was going to bed of pain in the back of his head, his vision starting to go black. He reports he was lying down at the time and the episode only last seconds. He states last nigh around 9 p.m. they were going to bed when he had another episode of pain in the back of his head, feeling like his vision was going black and as though he may pass out. He reports the episodes x 3 only lasted for a few seconds. No CP or SOB. No c/o n/v/d. No c/o fever or chills. He reports no further episodes today. Review of Systems-Cardiology Review of Systems Constitutional: No chills, No fever Eyes: No vision change Ears/Nose/Throat: No epistaxis, No recent hearing loss Respiratory: As described under HPI Cardiovascular: As described under HPI Gastrointestinal: No constipation, No diarrhea, No nausea, No vomiting Genitourinary: No dysuria, No hematuria Musculoskeletal: no symptoms reported Skin: No rash on exposed areas, No ulcerations on exposed areas Psychiatric/Neurological: As described under HPI; No anxiety, No depression, No focal weakness PVM-Bwntmi-Cwgitz Hx Patient Social History Smoking Status: Never a Smoker 2nd Hand Smoke Exposure: No Have you traveled recently?: No Alcohol Use?: Yes Pt feels they are or have been: No Immunizations Up To Date Tetanus Booster (TDap): Unknown Date of Pneumonia Vaccine: Sep 05, 2014 Date of Influenza Vaccine: Sep 13, 2018 Past Medical History PMH As described under Assessment. Family Medical History Family Medical History: He reports his father CAD, details unknown. Family History: Family history: Cardiovascular disease 19 FATHER, Onset:Unknown Allergies and Home Medications Allergies Coded Allergies: No Known Drug Allergies (Verified , 11/05/18) Patient Home Medication List Ascorbic Acid (Vitamin C) 500 Mg Tablet, 500 MG PO DAILY, (Reported) Entered as Reported by: RENATO SR on 09/03/21 120 Last Action: Reviewed Aspirin (Aspirin EC) 81 Mg Tablet.dr, 81 MG PO DAILY, (Reported) Entered as Reported by: RENATO SR on 01/11/21 150 Last Action: Continued Atorvastatin Calcium (Atorvastatin Calcium) 40 Mg Tablet, 20 MG PO DAILY, (Reported) Entered as Reported by: RENATO SR on 01/11/211501 Last Action: Reviewed Cholecalciferol (Vitamin D3) (Vitamin D3) 50 Mcg Tablet, 50 MCG PO DAILY, (Reported) Entered as Reported by: RENATO SR on 09/03/211206 Last Action: Reviewed Clopidogrel Bisulfate (Clopidogrel) 75 Mg Tablet, 75 MG PO DAILY, (Reported) Entered as Reported by: RENATO SR on 01/11/21 150 Last Action: Reviewed Famotidine (Famotidine) 40 Mg Tablet, 40 MG PO HS, (Reported) Entered as Reported by: LICHA MENDEZ on 01/31/16 1617 Last Action: Reviewed Lisinopril (Lisinopril) 10 Mg Tablet, 10 MG PO DAILY, (Reported) Entered as Reported by: RENATO SR on 01/11/211501 Last Action: Continued Metoprolol Succinate (Metoprolol Succinate) 100 Mg Tab.er.24h, 100 MG PO DAILY, (Reported) Entered as Reported by: RENATO SR on 09/03/21 115 Last Action: Continued Rivaroxaban (Xarelto) 20 Mg Tablet, 20 MG PO 1800, (Reported) Entered as Reported by: RENATO SR on 09/03/211150 Last Action: Continued Sotalol HCl (Sotalol) 120 Mg Tablet, 120 MG PO Q12H, (Reported) Entered as Reported by: RENATO SR on 09/03/211150 Last Action: Converted Zinc Amino Acid Chelate (Zinc) 50 Mg Tablet, 50 MG PO DAILY, (Reported) Entered as Reported by: RENATO SR on 09/03/211206 Last Action: Reviewed Discontinued Medications Metoprolol Succinate (Metoprolol Succinate) 50 Mg Tab.er.24h, 50 MG PO 1500, (Reported) Discontinued Reason: No Longer Taking Entered as Reported by: RENATO SR on 01/11/21 9832 Last Action: Discontinued Physical Exam-Cardiology Physical Exam Vital Signs/I&O 09/03/21 09/03/21 09/04/21 09/04/21 23:47 23:47 01:00 04:09 Temp 36.2 36.8 Pulse 65 60 61 Resp 16 15 B/P (MAP) 98/70 102/71 Pulse Ox 99 96 O2 Delivery Room Air Room Air Room Air 09/04/21 09/04/21 04:09 08:00 Temp 35.4 Pulse 64 Resp 18 B/P (MAP) 116/84 Pulse Ox 96 O2 Delivery Room Air Room Air 09/04/21 00:00 Intake Total 600 ml Output Total 1500 ml Balance -900 ml Capillary Refill : Less Than 3 Seconds Constitutional: AAO x 3, well-developed, well-nourished HEENT: PERRL, hearing is well preserved, oral hygience is good Neck: No carotid bruit; carotid pulses are 2 + bilaterally Respiratory: No accessory muscle use, No respiratory distress; chest expansion is symmetric, chest is bilaterally symmetric, lungs clear to auscultation Cardiovascular: regular rate-rhythm; No JVD; S1 and S2 Gastrointestinal: No tender; soft, round, audible bowel sounds Extremities: no lower extremity edema bilateral Neurologic/Psychiatric: grossly intact (moves all extremities) Skin: No rash on exposed areas, No ulcerations on exposed areas Data Review Labs Laboratory Tests 09/04/21 05:35: White Blood Count 6.8, Red Blood Count 4.54, Hemoglobin 13.7, Hematocrit 41, Mean Corpuscular Volume 91, Mean Corpuscular Hemoglobin 30, Mean Corpuscular Hemoglobin Concent 33, Red Cell Distribution Width 13.3, Platelet Count 248, Mean Platelet Volume 10.5, Immature Granulocyte % (Auto) 0, Neutrophils (%) (Auto) 51, Lymphocytes (%) (Auto) 34, Monocytes (%) (Auto) 13H, Eosinophils (%) (Auto) 2, Basophils (%) (Auto) 0, Neutrophils # (Auto) 3.5, Lymphocytes # (Auto) 2.3, Monocytes # (Auto) 0.9, Eosinophils # (Auto) 0.1, Basophils # (Auto) 0.0, Immature Granulocyte # (Auto) 0.0, Sodium Level 138, Potassium Level 4.3, Chloride Level 107, Carbon Dioxide Level 21, Anion Gap 10, Blood Urea Nitrogen 15, Creatinine 0.78, Estimat Glomerular Filtration Rate 104, BUN/Creatinine Ra antionette 19, Glucose Level 102, Calcium Level 9.4 Radiology NAME: BETTYE FRANKEL [facility] REC#: [id number] PT STATUS: REG ER : 1965 PHYSICIAN: NELLY BAREGR DO ADMIT DATE: 09/02/21/ER Signed Date of Exam:09/02/21 CHEST 1 VIEW, AP/PA ONLY INDICATION: Near syncope. Compared 07/11/2015 FINDINGS: Pacemaker device stable. The lungs clear. No failure, effusion or pneumothorax. No change from priors. IMPRESSION: No acute appearing abnormality Dictated by: Dictated on workstation # [id number] Dict: 09/02/21 [id number] Trans: 09/03/21 0000 KEN [id number] Interpreted by: RAVEN YE Electronically signed by: RAVEN YE 09/03/21 0000 NAME: BETTYE FRANKEL [facility] REC#: [id number] PT STATUS: REG ER : 1965 PHYSICIAN: NELLY BARGER DO ADMIT DATE: 09/02/21/ER Signed Date of Exam:09/02/21 CT HEAD WO-R/O STROKE PROCEDURE: CT head wo r/o stroke. TECHNIQUE: Multiple contiguous axial images were obtained through the brain without the use of intravenous contrast. Auto Exposure Controls were utilized during the CT exam to meet ALARA standards for radiation dose reduction. INDICATION: Presyncope. FINDINGS: There is no hemorrhage, hydrocephalus, edema, mass, mass effect or evidence for elevated intracerebral pressures. An incidental cavum septum pellucidum as a ventricular variant present. No sulcal effacement. No loss of the johnson-white matter differentiations. No evidence for an elevation of the intracranial pressures. There is no hemorrhage. Orbits, sinuses, and calvarium appeared nonacute. IMPRESSION: No hemorrhage, edema, hydrocephalus or acute abnormalities identified. Dictated by: Dictated on workstation # [id number] Dict: 09/02/21 [id number] Trans: 09/03/21 0000 KEN [id number] Interpreted by: RAVEN YE Electronically signed by: RAVEN YE 09/03/21 0000 ECG Impression ECG Comment SR with intermittent V-pacing A/P-Cardiology Assessment/Admission Diagnosis Syncope - undetermined etiology S/P ablation by Dr. Marcano on 08-28-21 Mildly elevated troponin likely secondary to recent ablation CAD. - Multiple cor stents over the course of several years. Promus 3.0 x 16mm in mid LAD; Hailey 3.0 x 12 mm stent in prox RCA; 3.0 x 16 mm in mid RCA ; overlapping 2.5 x 28, 2.5 x 24, and 2.25 x 12, from proximal to distal, in distal RCA. - Echo of 02/02/17 shows LVEF 60%, mod AoV sclerosis w/o stenosis, trivial Ao & Mitral & Tricusp regurg, mild doss dysfunction, PASP 30-35 mmHg - NSVT following Lexiscan infusion during MPI on 01/11/21. - Card cath or 01/12/21. Mild to mod diffused CAD, patent stent, 40-50% distal to mid LAD stent (FFR 0.84), localized inf akinesis, LVEF 45-50%. - S/P AICD implanted in February 04, [address] Marcano Hyperlipidemia - being treated with statin therapy, followed by pcp. No significant carotid art disease on carotid u/s of Jul 2019. Discussion and Recomendations Near syncope of undetermined etiology - likely secondary to transient AV block Dr. Guido has spoken with Dr. Marcano personally, he advised device settings be adjusted - [facility] rep notified Mild troponin elevation likely secondary to recent ablation by Dr. Marcano - no c/o CP Continue home medications Monitor lab Further recs based on his hospital course We would like to thank medical services for this consult Clinical Quality Measures AMI/AHF: ASA po Prior to arrival: JORGE Kim Sep 03, 2021 07:53
[2021-09-03 08:09] VITALS: BP_SYST 112; BP_SYST 124; BP_SYST 125; BP_DIAS 80; BP_DIAS 96; BP_DIAS 99
[2021-09-03] MEDS ORDERED: RIVA20TA PO (11:51)
[2021-09-03] MEDS ORDERED: SOTA120T PO (11:51)
[2021-09-03] MEDS ORDERED: MTP100TCR PO (11:51)
[2021-09-03] MEDS ORDERED: ASCO500T17 PO (12:07)
[2021-09-03] MEDS ORDERED: CHOL200014 PO (12:07)
[2021-09-03] MEDS ORDERED: ZINC50TA51 PO (12:07)
--- NOTE | 2021-09-03 17:26 | Consultation-Cardiology ---
HPI-Cardiology Cardiology Consultation: Date of Consultation 09/03/21 Time Seen by a Provider: 16:00 Date of Admission Attending Physician Silver Guido MD Facp Fac Ccds Admitting Physician Sole Mendez DO Consulting Physician SILVER GUIDO MD, MA, FACP, FAC, [facility], [facility] HPI: Chief Complaint: CC: Near syncope HPI Mr. Simpson is a 56 yr old male admitted to 510 from the ED with c/o near syncope. He reports he had ablation by Dr. Marcano on Thursday last week. He reports on Thursday evening he had an episode at the time he was going to bed of pain in the back of his head, his vision starting to go black. He reports he was lying down at the time and the episode only last seconds. He states last nigh around 9 p.m. they were going to bed when he had another episode of pain in the back of his head, feeling like his vision was going black and as though he may pass out. He reports the episodes x 3 only lasted for a few seconds. No CP or SOB. No c/o n/v/d. No c/o fever or chills. He reports no further episodes today. Review of Systems-Cardiology Review of Systems Constitutional: No chills, No fever Eyes: No vision change Ears/Nose/Throat: No epistaxis, No recent hearing loss Respiratory: As described under HPI Cardiovascular: As described under HPI Gastrointestinal: No constipation, No diarrhea, No nausea, No vomiting Genitourinary: No dysuria, No hematuria Musculoskeletal: no symptoms reported Skin: No rash on exposed areas, No ulcerations on exposed areas Psychiatric/Neurological: As described under HPI; No anxiety, No depression, No focal weakness HCL-Pnyqhc-Ugkzmc Hx Patient Social History Smoking Status: Never a Smoker 2nd Hand Smoke Exposure: No Have you traveled recently?: No Alcohol Use?: Yes Pt feels they are or have been: No Immunizations Up To Date Tetanus Booster (TDap): Unknown Date of Pneumonia Vaccine: Sep 05, 2014 Date of Influenza Vaccine: Sep 13, 2018 Past Medical History PMH As described under Assessment. Family Medical History Family Medical History: He reports his father CAD, details unknown. Family History: Family history: Cardiovascular disease 19 FATHER, Onset:Unknown Allergies and Home Medications Allergies Coded Allergies: No Known Drug Allergies (Verified , 11/05/18) Patient Home Medication List Home Medication List Reviewed: Yes Ascorbic Acid (Vitamin C) 500 Mg Tablet, 500 MG PO DAILY, (Reported) Entered as Reported by: RENATO SR on 09/03/211206 Last Action: Reviewed Aspirin (Aspirin EC) 81 Mg Tablet.dr, 81 MG PO DAILY, (Reported) Entered as Reported by: RENATO SR on 01/11/21 150 Last Action: Continued Atorvastatin Calcium (Atorvastatin Calcium) 40 Mg Tablet, 20 MG PO DAILY, (Reported) Entered as Reported by: RENATO SR on 01/11/211501 Last Action: Reviewed Cholecalciferol (Vitamin D3) (Vitamin D3) 50 Mcg Tablet, 50 MCG PO DAILY, (Reported) Entered as Reported by: RENATO SR on 09/03/211206 Last Action: Reviewed Clopidogrel Bisulfate (Clopidogrel) 75 Mg Tablet, 75 MG PO DAILY, (Reported) Entered as Reported by: RENATO SR on 01/11/211501 Last Action: Reviewed Famotidine (Famotidine) 40 Mg Tablet, 40 MG PO HS, (Reported) Entered as Reported by: LICHA MENDEZ on 01/31/16 1617 Last Action: Reviewed Lisinopril (Lisinopril) 10 Mg Tablet, 10 MG PO DAILY, (Reported) Entered as Reported by: RENATO SR on 01/11/211501 Last Action: Continued Metoprolol Succinate (Metoprolol Succinate) 100 Mg Tab.er.24h, 100 MG PO DAILY, (Reported) Entered as Reported by: RENATO SR on 09/03/211150 Last Action: Continued Rivaroxaban (Xarelto) 20 Mg Tablet, 20 MG PO 1800, (Reported) Entered as Reported by: RENATO SR on 09/03/211150 Last Action: Continued Sotalol HCl (Sotalol) 120 Mg Tablet, 120 MG PO Q12H, (Reported) Entered as Reported by: RENATO SR on 09/03/211150 Last Action: Reviewed Zinc Amino Acid Chelate (Zinc) 50 Mg Tablet, 50 MG PO DAILY, (Reported) Entered as Reported by: RENATO SR on 09/03/211206 Last Action: Reviewed Discontinued Medications Metoprolol Succinate (Metoprolol Succinate) 50 Mg Tab.er.24h, 50 MG PO 1500, (Reported) Discontinued Reason: No Longer Taking Entered as Reported by: RENATO SR on 01/11/21 1502 Last Action: Discontinued Physical Exam-Cardiology Physical Exam Vital Signs/I&O 09/03/21 09/03/21 09/03/21 09/03/21 06:32 08:09 08:12 08:13 Pulse 63 60 60 69 70 Resp 12 B/P (MAP) 112/80 (91) 112/80 125/99 (108) 124/96 (105) Pulse Ox 97 97 O2 Delivery Room Air Room Air 09/03/21 09/03/21 09/03/21 09/03/21 12:00 12:59 13:00 16:29 Temp 36.2 36.4 Pulse 63 68 64 Resp 20 20 B/P (MAP) 101/66 105/73 Pulse Ox 96 95 O2 Delivery Room Air Room Air Room Air 09/03/21 16:35 O2 Delivery Room Air Capillary Refill : Less Than 3 Seconds Constitutional: AAO x 3, well-developed, well-nourished HEENT: PERRL, hearing is well preserved, oral hygience is good Neck: No carotid bruit; carotid pulses are 2 + bilaterally Respiratory: No accessory muscle use, No respiratory distress; chest expansion is symmetric, chest is bilaterally symmetric, lungs clear to auscultation Cardiovascular: regular rate-rhythm; No JVD; S1 and S2 Gastrointestinal: No tender; soft, round, audible bowel sounds Extremities: no lower extremity edema bilateral Neurologic/Psychiatric: grossly intact (moves all extremities) Skin: No rash on exposed areas, No ulcerations on exposed areas Data Review Labs Laboratory Tests 09/02/21 22:38: White Blood Count 8.3, Red Blood Count 4.54, Hemoglobin 13.9, Hematocrit 41, Mean Corpuscular Volume 90, Mean Corpuscular Hemoglobin 31, Mean Corpuscular He moglobin Concent 34, Red Cell Distribution Width 13.3, Platelet Count 248, Mean Platelet Volume 10.3, Immature Granulocyte % (Auto) 0, Neutrophils (%) (Auto) 57, Lymphocytes (%) (Auto) 29, Monocytes (%) (Auto) 12, Eosinophils (%) (Auto) 2, Basophils (%) (Auto) 1, Neutrophils # (Auto) 4.7, Lymphocytes # (Auto) 2.4, Monocytes # (Auto) 1.0, Eosinophils # (Auto) 0.1, Basophils # (Auto) 0.0, Immature Granulocyte # (Auto) 0.0, Prothrombin Time 20.3H, INR Comment 1.7H, Activated Partial Thromboplast Time 39H, Sodium Level 138, Potassium Level 3.5L, Chloride Level 103, Carbon Dioxide Level 24, Anion Gap 11, Blood Urea Nitrogen 19H, Creatinine 0.87, Estimat Glomerular Filtration Rate 91, BUN/Creatinine Ratio 22, Glucose Level 129H, Calcium Level 10.0, Corrected Calcium 9.9, Magnesium Level 2.2, Total Bilirubin 0.4, Aspartate Amino Transf (AST/SGOT) 19, Alanine Aminotransferase (ALT/SGPT) 28, Alkaline Phosphatase 108, Total Creatine Kinase 105, Creatine Kinase MB 1.3, Myoglobin 37.3, Troponin I 0.583*H, B-Type Natriuretic Peptide 44.5, Total Protein 7.3, Albumin 4.1 09/02/21 23:08: Urine Color YELLOW, Urine Clarity CLEAR, Urine pH 7.0, Urine Specific [place] <=1.005, Urine Protein NEGATIVE, Urine Glucose (UA) NEGATIVE, Urine Ketones NEGATIVE, Urine Nitrite NEGATIVE, Urine Bilirubin NEGATIVE, Urine Urobilinogen 0.2, Urine Leukocyte Esterase NEGATIVE, Urine RBC (Auto) 2+H, Urine RBC NONE, Urine WBC NONE, Urine Squamous Epithelial Cells 0-2, Urine Crystals NONE, Urine Bacteria NEGATIVE, Urine Casts NONE, Urine Mucus NEGATIVE, Urine Culture Indicated NO 09/03/21 05:32: Triglycerides Level 99, Cholesterol Level 126, LDL Cholesterol Direct 71, VLDL Cholesterol 20, HDL Cholesterol 37L A/P-Cardiology Assessment/Admission Diagnosis Syncope - Likely related to transient AV block (pacemaker likely in AV search mode) H/o - S/P VT ablation by Dr. Marcano on 08-28-21 - Mildly elevated troponin likely secondary to recent ablation - on Xarelto for one month following VT ablation CAD. - Multiple cor stents over the course of several years. Promus 3.0 x 16mm in mid LAD; Hailey 3.0 x 12 mm stent in prox RCA; 3.0 x 16 mm in mid RCA ; overlapping 2.5 x 28, 2.5 x 24, and 2.25 x 12, from proximal to distal, in distal RCA. - Echo of 02/02/17 shows LVEF 60%, mod AoV sclerosis w/o stenosis, trivial Ao & Mitral & Tricusp regurg, mild doss dysfunction, PASP 30-35 mmHg - NSVT following Lexiscan infusion during MPI on 01/11/21. - Card cath or 01/12/21. Mild to mod diffused CAD, patent stent, 40-50% distal to mid LAD stent (FFR 0.84), localized inf akinesis, LVEF 45-50%. - S/P dual chamber pacemaker-AICD implanted in February 04, [address] Marcano Hyperlipidemia - being treated with statin therapy, followed by pcp. No significant carotid art disease on carotid u/s of Jul 2019. Discussion and Recomendations * I discussed his case in detail with Dr Marcano on the phone this am * Device rep to interrogate the device and set lower rate to at least 60 bpm and eliminate AV interval search * Reduce beta-scar * Continue sotalol * Continue Xarelto (1 month post ablation) * Continue low dose ASA because he has multiple cor stents in place * Monitor labs Clinical Quality Measures AMI/AHF: ASA po Prior to arrival: SILVER Neville MD FACP [facility] Sep 03, 2021 17:26
[2021-09-03] MEDS ORDERED: NON-FORMULARY MEDICATION 1 EA EA (Sotalol HCl (Sotalol) 120 MG) PO SCH (17:30)
[2021-09-03] MEDS ORDERED: RIVAROXABAN 20 MG TABLET (XARELTO) PO SCH (18:00)
[2021-09-03] MEDS: SOTALOL 80 MG (BETAPACE) TAB PO SCH (21:15)
[2021-09-04] MEDS: CATHETER FLUSH 10 ML SYR IV SCH (05:22)
[2021-09-04 06:04] LABS: BASOPHILS % (AUTO) 0 % (0-10); EOSINOPHILS # (AUTO) 0.1 10^3/uL (0.0-0.3); EOSINOPHILS % (AUTO) 2 % (0-10); HEMATOCRIT 41 % (40-54); HEMOGLOBIN 13.7 g/dL (13.3-17.7); LYMPHOCYTES # (AUTO) 2.3 10^3/uL (1.0-4.0); LYMPHOCYTES % (AUTO) 34 % (12-44); MEAN CORPUSCULAR HEMOGLOBIN 30 pg (25-34); MEAN CORPUSCULAR HGB CONC 33 g/dL (32-36); MEAN CORPUSCULAR VOLUME 91 fL (80-99); MEAN PLATELET VOLUME 10.5 fL (9.0-12.2); MONOCYTES # (AUTO) 0.9 10^3/uL (0.0-1.0); MONOCYTES % (AUTO) 13 % (0-12); NEUTROPHILS # (AUTO) 3.5 10^3/uL (1.8-7.8); NEUTROPHILS % (AUTO) 51 % (42-75); PLATELET COUNT 248 10^3/uL (130-400); WHITE BLOOD COUNT 6.8 10^3/uL (4.3-11.0)
[2021-09-04 06:13] LABS: POTASSIUM 4.3 MMOL/L (3.6-5.0)
[2021-09-04 06:14] LABS: CALCIUM 9.4 MG/DL (8.5-10.1)
[2021-09-04 06:19] LABS: CREATININE SERUM 0.78 MG/DL (0.60-1.30)
[2021-09-04] MEDS: SOTALOL 80 MG (BETAPACE) TAB PO SCH (08:03)
[2021-09-04] MEDS ORDERED: meTOprolol SUCCINATE 100 MG (TOPROL XL) TAB PO SCH (09:00)
[2021-09-04] MEDS ORDERED: lisINopril 10 MG (PRINIVIL) TABLET PO SCH (09:00)
[2021-09-04] MEDS ORDERED: ASPIRIN E.C. 81 MG (ECOTRIN) TAB PO SCH (09:00)
[2021-09-04] MEDS ORDERED: meTOproloL SUCCINATE 50 MG (TOPROL XL) TAB PO SCH (09:00)
--- NOTE | 2021-09-04 09:32 | Progress Note - Cardiology ---
Cardiology SOAP Progress Note Subjective: Lying in bed No further episodes of near syncope - has been up ambulating in room No c/o CP or SOB No c/o palpitations Objective: I&O/Vital Signs 09/03/21 09/03/21 09/04/21 09/04/21 23:47 23:47 01:00 04:09 Temp 36.2 36.8 Pulse 65 60 61 Resp 16 15 B/P (MAP) 98/70 102/71 Pulse Ox 99 96 O2 Delivery Room Air Room Air Room Air 09/04/21 09/04/21 04:09 08:00 Temp 35.4 Pulse 64 Resp 18 B/P (MAP) 116/84 Pulse Ox 96 O2 Delivery Room Air Room Air 09/04/21 00:00 Intake Total 600 ml Output Total 1500 ml Balance -900 ml Weight (Pounds): 200 Weight (Ounces): 0.0 Weight (Calculated Kilograms): [id number] Constitutional: AAO x 3, well-developed, well-nourished Respiratory: No accessory muscle use, No respiratory distress; chest expansion is symmetric, chest is bilaterally symmetric, lungs clear to auscultation Cardiovascular: regular rate-rhythm; No JVD; S1 and S2 Gastrointestional: No tender; soft, round, audible bowel sounds Extremities: no lower extremity edema bilateral Neurologic/Psychiatric: grossly intact (moves all extremities) Skin: No rash on exposed areas, No ulcerations on exposed areas Results/Procedures: Labs Laboratory Tests 09/04/21 05:35: White Blood Count 6.8, Red Blood Count 4.54, Hemoglobin 13.7, Hematocrit 41, Mean Corpuscular Volume 91, Mean Corpuscular Hemoglobin 30, Mean Corpuscular Hemoglobin Concent 33, Red Cell Distribution Width 13.3, Platelet Count 248, Mean Platelet Volume 10.5, Immature Granulocyte % (Auto) 0, Neutrophils (%) (Auto) 51, Lymphocytes (%) (Auto) 34, Monocytes (%) (Auto) 13H, Eosinophils (%) (Auto) 2, Basophils (%) (Auto) 0, Neutrophils # (Auto) 3.5, Lymphocytes # (Auto) 2.3, Monocytes # (Auto) 0.9, Eosinophils # (Auto) 0.1, Basophils # (Auto) 0.0, Immature Granulocyte # (Auto) 0.0, Sodium Level 138, Potassium Level 4.3, Chloride Level 107, Carbon Dioxide Level 21, Anion Gap 10, Blood Urea Nitrogen 15, Creatinine 0.78, Estimat Glomerular Filtration Rate 104, BUN/Creatinine Ratio 19, Glucose Level 102, Calcium Level 9.4 Laboratory Tests 09/02/21 22:38 09/04/21 05:35 A/P: Assessment: Syncope - Likely related to transient AV block (pacemaker likely in AV search mode) - no further episodes following device setting adjustments by [facility] rep on 09-03-21: set lower rate to at least 60 bpm and eliminate AV interval search H/o - S/P VT ablation by Dr. Marcano on 08-28-21 - Mildly elevated troponin likely secondary to recent ablation - on Xarelto for one month following VT ablation CAD. - Multiple cor stents over the course of several years. Promus 3.0 x 16mm in mid LAD; Hailey 3.0 x 12 mm stent in prox RCA; 3.0 x 16 mm in mid RCA ; overlapping 2.5 x 28, 2.5 x 24, and 2.25 x 12, from proximal to distal, in distal RCA. - Echo of 02/02/17 shows LVEF 60%, mod AoV sclerosis w/o stenosis, trivial Ao & M itral & Tricusp regurg, mild doss dysfunction, PASP 30-35 mmHg - NSVT following Lexiscan infusion during MPI on 01/11/21. - Card cath or 01/12/21. Mild to mod diffused CAD, patent stent, 40-50% distal to mid LAD stent (FFR 0.84), localized inf akinesis, LVEF 45-50%. - S/P dual chamber pacemaker-AICD implanted in February 04, [address] Marcano Hyperlipidemia - being treated with statin therapy, followed by pcp. No significant carotid art disease on carotid u/s of Jul 2019. Plan: * I discussed his case in detail with Dr Marcano on the phone this am * Device rep to interrogate the device and set lower rate to at least 60 bpm and eliminate AV interval search * Continue reduced dose of beta-scar * Continue sotalol * Continue Xarelto (1 month post ablation) * Continue low dose ASA because he has multiple cor stents in place * Ok to discharge home today with out pt f/u Clinical Quality Measures AMI/AHF: ASA po Prior to arrival: JORGE Kim Sep 04, 2021 09:32
[2021-09-04] MEDS ORDERED: ASPI-1238 PO (09:36)
[2021-09-04] MEDS ORDERED: METO50TA7 PO (09:36)
--- NOTE | 2021-09-04 09:39 | Discharge Inst-Cardiology ---
Discharge Inst-Cardiac Discharge Medications New Medications: Aspirin (Aspirin EC) 81 Mg Tablet.dr 81 MG PO DAILY, #30 TAB 5 Refills Metoprolol Succinate (Metoprolol Succinate) 50 Mg Tab.er.24h 50 MG PO DAILY, #30 TAB 5 Refills Continued Medications: Ascorbic Acid (Vitamin C) 500 Mg Tablet 500 MG PO DAILY, TAB Atorvastatin Calcium (Atorvastatin Calcium) 40 Mg Tablet 20 MG PO DAILY, TAB TAKES 1/2 OF A 40MG TAB Cholecalciferol (Vitamin D3) (Vitamin D3) 50 Mcg Tablet 50 MCG PO DAILY, TAB Famotidine (Famotidine) 40 Mg Tablet 40 MG PO HS, TAB Rivaroxaban (Xarelto) 20 Mg Tablet 20 MG PO 1800, TAB Sotalol HCl (Sotalol) 120 Mg Tablet 120 MG PO Q12H, TAB Zinc Amino Acid Chelate (Zinc) 50 Mg Tablet 50 MG PO DAILY, TAB Discontinued Medications: Aspirin (Aspirin EC) 81 Mg Tablet.dr 81 MG PO DAILY, TAB ON HOLD UNTIL 09-28-2021 Clopidogrel Bisulfate (Clopidogrel) 75 Mg Tablet 75 MG PO DAILY, TAB Lisinopril (Lisinopril) 10 Mg Tablet 10 MG PO DAILY, TAB Metoprolol Succinate (Metoprolol Succinate) 100 Mg Tab.er.24h 100 MG PO DAILY, TAB New, Converted or Re-Newed RX: Transmitted to Pharmacy Patient Instructions Patient Instructions: Please schedule follow up appointment to see Dr. Guido in a week JORGE DEY Sep 04, 2021 09:39
[2021-09-29] MEDS ORDERED: ASPIRIN E.C. 81 MG (ECOTRIN) TAB PO SCH (09:00)
== END 2021-09-04 09:32 | disposition home or self-care (01) ==
LOC: EDUNIT# 21:33 → ER 21:34 → CSD 23:40
PROVIDERS: ADMIT Internal Medicine Cardiovascular Disease; ATTEND Internal Medicine Cardiovascular Disease
DX: R55 Syncope and collapse (principal); R94.31 Abnormal electrocardiogram [ECG] [EKG]; R74.8 Abnormal levels of other serum enzymes; I47.2 Ventricular tachycardia; I25.10 Atherosclerotic heart disease of native coronary artery without angina pectoris; I25.2 Old myocardial infarction; I49.5 Sick sinus syndrome; E78.00 Pure hypercholesterolemia, unspecified; I10 Essential (primary) hypertension; I48.91 Unspecified atrial fibrillation; Z79.82 Long term (current) use of aspirin; Z95.810 Presence of automatic (implantable) cardiac defibrillator; Z95.1 Presence of aortocoronary bypass graft; Z79.02 Long term (current) use of antithrombotics/antiplatelets; Z79.899 Other long term (current) drug therapy
CPT/HCPCS: 70450; 71045; 80048; 80053; 80061; 81000; 82550; 82553; 83735; 83874; 83880; 84484; 85025 ×2; 85610; 85730; 93005 ×2; 93041; 99284; G0378; 36415

== ENCOUNTER → 2021-12-13 | Outpatient (CLI) | payer BC ==
[~2021-12-13] VITALS: Ht 167 cm; Wt 88.0 kg
[~2021-12-13] MED LIST changes: +ASCO500T17 PO; +CHOL200014 PO; +MTP100TCR PO; +REGADENOSON 0.4 MG/5 ML SYR (LEXISCAN) IV ONE; +RIVA20TA PO; +SOTA120T PO; +ZINC50TA51 PO
[2021-12-13] MEDS: CATHETER FLUSH 10 ML SYR IV PRN ×2 (07:56→09:00)
[2021-12-13 12:02] VITALS: BP 133/84
== END ==
LOC: CARD 08:00
PROVIDERS: ATTEND Internal Medicine Cardiovascular Disease
DX: I47.2 Ventricular tachycardia (principal)
CPT/HCPCS: 78452; 93017; A9502

== ENCOUNTER → 2022-06-30 | Outpatient (CLI) | payer BC ==
[~2022-06-30] MED LIST changes: -CHOL200014 PO; +CHOL200052 PO; -REGADENOSON 0.4 MG/5 ML SYR (LEXISCAN) IV ONE
[2022-06-30 07:54] LABS: BASOPHILS % (AUTO) 1 % (0-10); EOSINOPHILS # (AUTO) 0.1 10^3/uL (0.0-0.3); EOSINOPHILS % (AUTO) 1 % (0-10); HEMATOCRIT 45 % (40-54); HEMOGLOBIN 15.3 g/dL (13.3-17.7); LYMPHOCYTES # (AUTO) 2.1 10^3/uL (1.0-4.0); LYMPHOCYTES % (AUTO) 34 % (12-44); MEAN CORPUSCULAR HEMOGLOBIN 30 pg (25-34); MEAN CORPUSCULAR HGB CONC 34 g/dL (32-36); MEAN CORPUSCULAR VOLUME 88 fL (80-99); MEAN PLATELET VOLUME 9.9 fL (9.0-12.2); MONOCYTES # (AUTO) 0.7 10^3/uL (0.0-1.0); MONOCYTES % (AUTO) 11 % (0-12); NEUTROPHILS # (AUTO) 3.3 10^3/uL (1.8-7.8); NEUTROPHILS % (AUTO) 53 % (42-75); PLATELET COUNT 219 10^3/uL (130-400); WHITE BLOOD COUNT 6.3 10^3/uL (4.3-11.0)
[2022-06-30 08:19] LABS: ALBUMIN 4.1 GM/DL (3.2-4.5); BILIRUBIN,TOTAL 0.7 MG/DL (0.1-1.0); CALCIUM 9.1 MG/DL (8.5-10.1); CREATININE SERUM 0.82 MG/DL (0.60-1.30); POTASSIUM 4.1 MMOL/L (3.6-5.0)
[2022-06-30 08:40] LABS: FREE T4 (FREE THYROXINE) 0.85 NG/DL (0.70-1.48)
== END ==
LOC: LAB 07:33
PROVIDERS: ATTEND Family Medicine
DX: I10 Essential (primary) hypertension (principal); E78.2 Mixed hyperlipidemia; I25.10 Atherosclerotic heart disease of native coronary artery without angina pectoris; R53.81 Other malaise
CPT/HCPCS: 36415; 80053; 80061; 84153; 84439; 84443; 85025

== ENCOUNTER → 2023-04-02 | Outpatient (CLI) | payer BC | LOC: CARD 08:30 | PROVIDERS: ATTEND Nurse Practitioner Family | DX: I25.9 Chronic ischemic heart disease, unspecified (principal) | CPT/HCPCS: 93306 ==